=== PATIENT | male | born 1945 | race Caucasian/White ===

== ENCOUNTER 2018-12-04 14:11 | Inpatient (IN) | payer OTHER, MEDICARE ==
[~2018-12-04] VITALS: Ht 182.9 cm; Wt 104.7 kg
[2018-12-04 15:05] LABS: BASOPHILS ABSOLUTE AUTO 0.03 K/mm3 (0.00-0.23); BASOPHILS PERCENT AUTO 1 % (0-2); EOSINOPHILS ABSOLUTE AUTO 0.31 K/mm3 (0.00-0.68); EOSINOPHILS PERCENT AUTO 6 % (0-6); Hematocrit 39.3 % (37.0-53.0); Hemoglobin 12.3 g/dL (13.5-17.5); IMMATURE GRAN ABSOLUTE AUTO 0.01 K/mm3 (0.00-0.10); IMMATURE GRAN PERCENT AUTO 0 % (0-1); LYMPHOCYTES ABSOLUTE AUTO 1.15 K/mm3 (0.84-5.20); LYMPHOCYTES PERCENT AUTO 22 % (21-46); MONOCYTES ABSOLUTE AUTO 0.47 K/mm3 (0.16-1.47); MONOCYTES PERCENT AUTO 9 % (4-13); Mean Corpuscular HGB 27.7 pg (26.0-34.0); Mean Corpuscular HGB Conc 31.3 g/dL (31.5-36.5); Mean Corpuscular Volume 89 fL (80-100); Mean Platelet Volume 10.4 fL (9.1-12.4); NEUTROPHILS ABSOLUTE AUTO 3.33 K/mm3 (1.96-9.15); NEUTROPHILS PERCENT AUTO 63 % (41-73); Platelet Count 175 K/mm3 (150-400); RDW Coefficient Variation 16.4 % (11.7-14.2); Red Blood Cell Count 4.44 M/mm3 (4.30-5.90)
[2018-12-04] MEDS ORDERED: AMLO10 PO (15:07)
[2018-12-04] MEDS ORDERED: METO25 (15:07)
[2018-12-04] MEDS ORDERED: ALLO100 (15:08)
[2018-12-04] MEDS ORDERED: POTA8 PO (15:08)
[2018-12-04] MEDS ORDERED: Aspirin EC81 MG PO (15:08)
[2018-12-04] MEDS ORDERED: HYDCHL25 (15:09)
[2018-12-04] MEDS ORDERED: LOSA25 (15:09)
[2018-12-04] MEDS ORDERED: BISM300CH (15:09)
[2018-12-04 15:22] LABS: Alanine Aminotransfer (ALT/SGP 20 U/L (12-78); Albumin, Blood 3.3 g/dL (3.4-5.0); Albumin/Globulin Ratio 0.9 (0.8-1.8); Alk Phos 71 U/L (50-136); Anion Gap 7 mmol/L (6-16); Aspartate Aminotrans (AST/SGOT 14 U/L (12-37); Bilirubin, Total 0.3 mg/dL (0.1-1.0); Blood Urea Nitrogen 32 mg/dL (8-24); Bun/Creatinine Ratio 26.9 (12.0-20.0); CO2, Blood 29 mmol/L (21-32); Chloride, Blood 109 mmol/L (98-108); Creatinine, Blood 1.19 mg/dL (0.60-1.20); Globulin, Blood 3.6 g/dL (2.2-4.0); Glomerular Filtration Rate >60 (60-); Glucose, Blood 123 mg/dL (70-99); Sodium, Blood 145 mmol/L (136-145); Total Protein, Blood 6.9 g/dL (6.4-8.2); Troponin I 0.017 ng/mL (0.000-0.040)
[2018-12-04] MEDS ORDERED: HYDRA50 PO (18:17)
[2018-12-04] MEDS ORDERED: ATOR40TA PO (18:17)
[2018-12-04] MEDS ORDERED: Bumetanide1 MG PO (18:17)
[2018-12-04] MEDS ORDERED: NOVOLOG FL100 UNIT/1 SC (18:18)
[2018-12-04] MEDS ORDERED: BASAGLAR K100 UNIT/1 SC (18:19)
[2018-12-04] MEDS ORDERED: METO50ER PO (18:19)
[2018-12-04] MEDS ORDERED: LOSA50 PO (18:19)
[2018-12-04] MEDS ORDERED: POTCHL20ER PO (18:20)
--- NOTE | 2018-12-04 19:30 | NUR ---
PCU ADMIT / CARE ASSUMPTION PT PREVIOUSLY ADMITTED TO PCU, RM 06 FROM THE ER @ APPROX 1820. CARE ASSUMPTION @ APPROX 1930. PT A&O X4. VSS. MONITOR SHOWS AFLUTTER, HR 80'S. PT REPORTS HAVING MULT EPISODES OF NEAR SYNCOPE PRIOR TO ADMISSION, STATING "I NEVER BLACKED OUT." PT REPORTS "I CAN FEEL THAT MY HEART ISN'T BEATING NORMALLY." PT DENIES PAIN. DENIES SOB. STATES "I FEEL FINE." FAMILY AT BEDSIDE. PT INDEPENDENT, ENCOURAGED TO USE CALL LIGHT FOR SBA D/T HX NEAR SYNCOPE. PT AGREEABLE. WILL CONTINUE TO MONITOR AND PROVIDE CARE.
--- NOTE | 2018-12-04 23:00 | NUR ---
PAUSE & CONVERSION TO SB/NSR PT W/ A 3.75 SECOND PAUSE AND CONVERSION TO SB/NSR @ 0213
--- NOTE | 2018-12-05 02:00 | NUR ---
FURTHER PAUSES PT HAVING MULTIPLE PAUSES, ALL IN WHICH PT SLEEPING AT TIME OF PAUSES, WAKENS EASILY AND DENIES FURTHER ABNORMAL SYMPTOMS. PT W/ A 3.8 SECOND PAUSE @ 2359, A 5.7 SECOND PAUSE @ 0104, & A 4.6 SECOND PAUSE @ 0147. SEE CHART FOR PRINTED STRIPS. VSS. PT ALSO FLIPPING IN AND OUT OF AFIB AND SB, HR RANGING 45-110. CARDIOLOGY IS CONSULTED. PT IS NPO W/ POSSIBLE PACER PLACEMENT. WILL CONTINUE TO MONITOR AND PROVIDE CARE.
[2018-12-05 05:04] LABS: BASOPHILS ABSOLUTE AUTO 0.02 K/mm3 (0.00-0.23); BASOPHILS PERCENT AUTO 0 % (0-2); EOSINOPHILS ABSOLUTE AUTO 0.28 K/mm3 (0.00-0.68); EOSINOPHILS PERCENT AUTO 6 % (0-6); Hematocrit 37.4 % (37.0-53.0); Hemoglobin 11.8 g/dL (13.5-17.5); IMMATURE GRAN ABSOLUTE AUTO 0.01 K/mm3 (0.00-0.10); IMMATURE GRAN PERCENT AUTO 0 % (0-1); LYMPHOCYTES ABSOLUTE AUTO 0.96 K/mm3 (0.84-5.20); LYMPHOCYTES PERCENT AUTO 19 % (21-46); MONOCYTES ABSOLUTE AUTO 0.43 K/mm3 (0.16-1.47); MONOCYTES PERCENT AUTO 9 % (4-13); Mean Corpuscular HGB 27.7 pg (26.0-34.0); Mean Corpuscular HGB Conc 31.6 g/dL (31.5-36.5); Mean Corpuscular Volume 88 fL (80-100); Mean Platelet Volume 10.1 fL (9.1-12.4); NEUTROPHILS ABSOLUTE AUTO 3.36 K/mm3 (1.96-9.15); NEUTROPHILS PERCENT AUTO 66 % (41-73); Platelet Count 159 K/mm3 (150-400); RDW Coefficient Variation 16.3 % (11.7-14.2); RDW Standard Deviation 52.3 fL (35.1-46.3); Red Blood Cell Count 4.26 M/mm3 (4.30-5.90); White Blood Cell Count 5.06 K/mm3 (4.00-11.30)
[2018-12-05 05:36] LABS: Anion Gap 6 mmol/L (6-16); Blood Urea Nitrogen 27 mg/dL (8-24); Bun/Creatinine Ratio 23.7 (12.0-20.0); CHOL/HDL RATIO 3.8; CO2, Blood 30 mmol/L (21-32); Calcium, Blood 8.8 mg/dL (8.5-10.1); Chloride, Blood 108 mmol/L (98-108); Cholesterol 140 mg/dL (50-200); Creatinine, Blood 1.14 mg/dL (0.60-1.20); Glomerular Filtration Rate >60 (60-); Glucose, Blood 111 mg/dL (70-99); HDL Cholesterol 37 mg/dL (>39); LDL/HDL RATIO 1.8; Low Density Lipoprotein Chol 67 mg/dL (0-110); Potassium, Blood 3.9 mmol/L (3.5-5.5); Sodium, Blood 144 mmol/L (136-145); Triglycerides 182 mg/dL (30-160); Very Low Density Lipoprot Chol 36 mg/dL (6-32)
--- NOTE | 2018-12-05 06:08 | NUR ---
SHIFT SUMMARY PT A&O X4. VSS. MONITOR SHOWS EPISODES OF SB W/ 4 PAUSES TOTAL THIS SHIFT, SEE PREVIOUS NOTES AND PRINTED STRIPS IN CHART. PT ALSO HAVING EPISODES OF AFIB, AFLUTTER, AND NSR THIS SHIFT. HR RANGING 45-110. PT WEARING CPAP WHILE SLEEPING AND REPORTS RA DURING DAY. PT REQUIRING O2 BLEED IN UP TO 4L THIS SHIFT D/T DESAT 85% WHILE SLEEPING W/ CPAP ON @ RA. PT DENIES ANY EPISODES OF DIZZINESS THIS SHIFT. PT STATES "NO DIZZINESS, AT LEAST NOT YET." PT CONTINUES TO BE NPO, AWAITING PLAN FOR TODAY. WILL CONTINUE TO MONITOR AND PROVIDE CARE UNTIL REPORT OFF TO DAY SHIFT RN.
--- NOTE | 2018-12-05 07:25 | NUR ---
REPORT GIVEN TO DAY SHIFT RN. MONTESSORI LEAD TEACHER W/ REPORT OF PT BRADYING DOWN TO LOW 36 BPM @ 0720. UPON ASSESSMENT OF PT, PT ALERT, SITTING UP IN BED, & PT STATES "I FEEL FINE. I'M JUST AN OLD SLOW MAN." PT LAUGHING. DAY SHIFT RN AT PT BEDSIDE TAKING OVER CARE OF PT.
--- NOTE | 2018-12-05 08:15 | NUR ---
PCU DAYSHIFT ASSUMED CARE OF PT APPROX. 0700. PT A&O X4. VITAL SIGNS STABLE. ALTHOUGH BLOOD PRESSURE SLIGHTLY ELEVATED, DELI COOK MAKING MED CHANGES FOR THIS. WILL GIVE PER EMAR. ASSESSMENT COMPLETED. PT DENIES ANY IGHTHEADED OR DIZZINESS. PT HEART RHYTHM RANGGINGG FROM SINUS JORDAN IN 30'S-40'S TO, A FLUTTER IN 50'S AND THEN BACK TO A. FIB AVERAGING IN 70'S. DELI COOK AWARE AND WENT IN TO DISSCUS PLAN WITH PT THIS MORNING. PLAN IS FOR PT TO UNDERGO PAACEMAKER PLACEMENT. PT IN BED AT THIS TIME. CALL LIGHT IN REACH AND PT DENIES ANY NEEDS
--- NOTE | 2018-12-05 11:05 | NUR ---
ECHOCARDIOGRAM COMPLETED
--- NOTE | 2018-12-05 15:12 | NUR ---
NOTE HEART CENTER STAFF IN TO TAKE PT FOR PROCEDURE APPROX 1500. NO S/SX OF ACUTE DISTRESS
--- NOTE | 2018-12-05 19:31 | NUR ---
SHIFT SUMMARY PT ARRIVED BACK TO UNIT APPROX. 1800. PT A&O X4. VITAL SIGNS STABLE. PT HAS SURGICAL SITE ON UPPER LEFT CHEST WITH TEGADERM DRESSING IN PLACE. SITE REMAISN NON TENDER AND SOFT. NO S/SX OF BLEEDING, HEMATOMA OR SWELLING. A SMALL AMOUNT OF RED DRAINGAGE NOTED FROM TIME OF PLACEMENT OF DRESSING. HEART CENTER STAFF REPORTS THIS. PT DENEIS ANY PAIN OR N/V. PT REPROTS BEING HUNGRY. BED IN LOW POSTIION, CALL LGIHT IN REACH AND PT DENIES ANY NEEDS AT THIS TIME. WILL CONTINUE TO MONITOR UNTIL HANDOFF TO [facility] J[facility]
--- NOTE | 2018-12-05 19:44 | NUR ---
NOTE PT HAD A 8 BEAT RUN OF V. TACH UPON RETURN TO UNIT FROM PROCEDURE. APPROX. 0. BUT WITHOUT ANY SYMPTOMS. PT WAAS IN ROOM VISITING WITH FAMILY AT THE TIME. NOTIFIED CARDILOGIST OF THIS. NO NEW ORDERS AT THIS TIME.
[2018-12-06 04:20] LABS: BASOPHILS ABSOLUTE AUTO 0.02 K/mm3 (0.00-0.23); BASOPHILS PERCENT AUTO 0 % (0-2); EOSINOPHILS ABSOLUTE AUTO 0.21 K/mm3 (0.00-0.68); EOSINOPHILS PERCENT AUTO 4 % (0-6); Hematocrit 38.6 % (37.0-53.0); Hemoglobin 12.2 g/dL (13.5-17.5); IMMATURE GRAN PERCENT AUTO 0 % (0-1); LYMPHOCYTES ABSOLUTE AUTO 0.81 K/mm3 (0.84-5.20); LYMPHOCYTES PERCENT AUTO 16 % (21-46); MONOCYTES ABSOLUTE AUTO 0.52 K/mm3 (0.16-1.47); MONOCYTES PERCENT AUTO 11 % (4-13); Mean Corpuscular HGB 27.7 pg (26.0-34.0); Mean Corpuscular HGB Conc 31.6 g/dL (31.5-36.5); Mean Corpuscular Volume 88 fL (80-100); Mean Platelet Volume 9.8 fL (9.1-12.4); NEUTROPHILS ABSOLUTE AUTO 3.39 K/mm3 (1.96-9.15); NEUTROPHILS PERCENT AUTO 69 % (41-73); Platelet Count 157 K/mm3 (150-400); RDW Coefficient Variation 15.9 % (11.7-14.2); RDW Standard Deviation 51.6 fL (35.1-46.3); White Blood Cell Count 4.95 K/mm3 (4.00-11.30)
[2018-12-06 04:36] LABS: Anion Gap 6 mmol/L (6-16); Blood Urea Nitrogen 30 mg/dL (8-24); Bun/Creatinine Ratio 26.1 (12.0-20.0); CO2, Blood 32 mmol/L (21-32); Calcium, Blood 8.9 mg/dL (8.5-10.1); Chloride, Blood 105 mmol/L (98-108); Creatinine, Blood 1.15 mg/dL (0.60-1.20); Glomerular Filtration Rate >60 (60-); Glucose, Blood 145 mg/dL (70-99); Sodium, Blood 143 mmol/L (136-145)
--- NOTE | 2018-12-06 05:38 | NUR ---
SHIFT SUMMARY PT A&O X4. BP ELEVATED, MEDICATED W/ PRN HYDRALAZINE PER EMAR X1 THIS SHIFT. OTHERWISE VSS. SMALL BLEED NOTED TO PACER IMPLANTATION SITE, OTHERWISE SITE WNL. DRESSING INTACT. MONITOR SHOWS ATRIAL PACING, HR 60'S W/ EPISODES OF AFLUTTER. PT LUNG SOUNDS CLEAR. SPO2 > 92% ON RA. PT WEARING CPAP WHILE SLEEPING. WILL CONTINUE TO MONITOR AND PROVIDE CARE UNTIL REPORT OFF TO DAY SHIFT RN.
--- NOTE | 2018-12-06 09:04 | NUR ---
PCU DAYSHIFT ASSUMED CARE OF PT APPROX. 0700. PT A&OX4. ASSESSMENT COMPLETED. VITAL SIGNS STABLE. PT HEART RHTYHM PACED IN 60'S THIS MORNING. PT HAS PACEMAKER INCERSION SITE ON UPPER LEFT CHEST. PACEMAKER PLACED 12/05/18. TEGADERM DRESING IN PLACE AND INTACT. SMALL AMOUNT OF DRAINAGE NOTED FROM YESTERDAY AFTER PROCEDURE. INSERT CUTTER IN TO SEE THIS THIS MORNING AND REPORTS NO CONCERNS OF THIS. PT TO DISCHARGE TODAY. PT DENIES ANY PAIN THIS MORNING. BED IN LOW POSITION, CALL LIGHT IN REACH AND PT DENIES ANY NEEDS.
--- NOTE | 2018-12-06 10:37 | NUR ---
NOTE NOTIFIED PT THAT DISCHARGE ORDERS RECIEVED
[2018-12-06] MEDS ORDERED: ACET325 PO (11:29)
--- NOTE | 2018-12-06 13:04 | NUR ---
DISCHARGE DISCHARGE ORDERS RECIEVED. DISCHARGE PROCESS COMEPLTED. [facility]FORMATION [facility] TO [facility] AND MEDICAITONS FAXED OVER. REVIEWED DISCHARGE INSTRUCTIONS WITH PT AND FMAILY MEMEBER. ANSWERED ALL QUIESTIONS. PROVIDED WRITTEN EDUCATION ON POST PACEMAKER AFTER CARE. PT TO BE ESCORTED BY PEER STAFF MEMBER VIA WHEELCHAIR TO AUTOMOBILE. WILL CONTINUE TO MONITOR UNTIL DEPARTING UNIT
== END 2018-12-06 13:11 | disposition home or self-care (01) | DRG 243 ==
LOC: ER 14:11 → PCU 14:12
PROVIDERS: Emergency Medicine; Internal Medicine Cardiovascular Disease; ADMIT Internal Medicine
PROC: 0JH606Z Insertion of Pacemaker, Dual Chamber into Chest Subcutaneous Tissue and Fascia, Open Approach (ICD-10-PCS; principal; 2018-12-05)
PROC: 02HK3JZ Insertion of Pacemaker Lead into Right Ventricle, Percutaneous Approach (ICD-10-PCS; 2018-12-05)
PROC: 02H63JZ Insertion of Pacemaker Lead into Right Atrium, Percutaneous Approach (ICD-10-PCS; 2018-12-05)
PROC: B51N1ZZ Fluoroscopy of Left Upper Extremity Veins using Low Osmolar Contrast (ICD-10-PCS; 2018-12-05)
DX: I49.5 Sick sinus syndrome (principal); I48.92 Unspecified atrial flutter; Z79.82 Long term (current) use of aspirin; I10 Essential (primary) hypertension; I48.91 Unspecified atrial fibrillation; Z95.5 Presence of coronary angioplasty implant and graft; I25.10 Atherosclerotic heart disease of native coronary artery without angina pectoris; M10.9 Gout, unspecified; Z87.891 Personal history of nicotine dependence; I16.0 Hypertensive urgency; E11.51 Type 2 diabetes mellitus with diabetic peripheral angiopathy without gangrene; E78.5 Hyperlipidemia, unspecified; G47.33 Obstructive sleep apnea (adult) (pediatric); E66.9 Obesity, unspecified; Z68.29 Body mass index [BMI] 29.0-29.9, adult; Z79.4 Long term (current) use of insulin; I65.21 Occlusion and stenosis of right carotid artery; I48.0 Paroxysmal atrial fibrillation
CPT/HCPCS: 33208; 36415; 70450; 71045; 71046; 80048; 80053; 80061; 82947; 83880; 84443; 84484; 85025; 93005; 93010; 93306; 93880; 94660; 94762; 96374; 96375; 99152; 99153; 99285-25; C1785; C1898; G0378; J0153; J0360; J0690; J1644; J1940; J2250; J3010; J7030; J7040; Q9967

== ENCOUNTER 2019-06-22 11:49 | Inpatient (IN) | payer OTHER ==
[~2019-06-22] VITALS: Ht 182.9 cm; Wt 110.5 kg
[~2019-06-22 11:49] MED LIST: ACET325 PO; ALLO100; BISM300CH; HYDCHL25; HYDRA50 PO; LOSA25; METO25; POTA8 PO; POTCHL20ER PO
[2019-06-22 12:16] LABS: BASOPHILS ABSOLUTE AUTO 0.05 K/mm3 (0.00-0.23); BASOPHILS PERCENT AUTO 1 % (0-2); EOSINOPHILS ABSOLUTE AUTO 0.27 K/mm3 (0.00-0.68); EOSINOPHILS PERCENT AUTO 3 % (0-6); Hematocrit 42.4 % (37.0-53.0); Hemoglobin 13.4 g/dL (13.5-17.5); IMMATURE GRAN ABSOLUTE AUTO 0.02 K/mm3 (0.00-0.10); IMMATURE GRAN PERCENT AUTO 0 % (0-1); LYMPHOCYTES ABSOLUTE AUTO 1.11 K/mm3 (0.84-5.20); LYMPHOCYTES PERCENT AUTO 14 % (21-46); MONOCYTES ABSOLUTE AUTO 0.61 K/mm3 (0.16-1.47); MONOCYTES PERCENT AUTO 8 % (4-13); Mean Corpuscular HGB 28.6 pg (26.0-34.0); Mean Corpuscular HGB Conc 31.6 g/dL (31.5-36.5); Mean Corpuscular Volume 90 fL (80-100); Mean Platelet Volume 10.7 fL (9.1-12.4); NEUTROPHILS ABSOLUTE AUTO 5.93 K/mm3 (1.96-9.15); NEUTROPHILS PERCENT AUTO 74 % (41-73); Platelet Count 234 K/mm3 (150-400); RDW Coefficient Variation 15.7 % (11.7-14.2); RDW Standard Deviation 51.3 fL (35.1-46.3); Red Blood Cell Count 4.69 M/mm3 (4.30-5.90); White Blood Cell Count 7.99 K/mm3 (4.00-11.30)
[2019-06-22 12:41] LABS: Alanine Aminotransfer (ALT/SGP 41 U/L (12-78); Albumin, Blood 3.9 g/dL (3.4-5.0); Albumin/Globulin Ratio 1.1 (0.8-1.8); Alk Phos 103 U/L (50-136); Anion Gap 6 mmol/L (6-16); Aspartate Aminotrans (AST/SGOT 28 U/L (12-37); Bilirubin, Total 0.7 mg/dL (0.1-1.0); Blood Urea Nitrogen 33 mg/dL (8-24); Bun/Creatinine Ratio 18.9 (12.0-20.0); CO2, Blood 29 mmol/L (21-32); Calcium, Blood 9.3 mg/dL (8.5-10.1); Chloride, Blood 106 mmol/L (98-108); Creatinine, Blood 1.75 mg/dL (0.60-1.20); Globulin, Blood 3.6 g/dL (2.2-4.0); Glomerular Filtration Rate 41 (60-); Glucose, Blood 96 mg/dL (70-99); Potassium, Blood 3.8 mmol/L (3.5-5.5); Sodium, Blood 141 mmol/L (136-145); Total Protein, Blood 7.5 g/dL (6.4-8.2); Troponin I <0.015 ng/mL (0.000-0.040)
[2019-06-22] MEDS ORDERED: AMLO10 PO (15:45)
[2019-06-22] MEDS ORDERED: NOVOLOG FL100 UNIT/1 SC (15:46)
[2019-06-22] MEDS ORDERED: ATOR40TA PO (15:46)
[2019-06-22] MEDS ORDERED: Bumetanide1 MG PO (15:46)
[2019-06-22] MEDS ORDERED: BASAGLAR K100 UNIT/1 SC (15:46)
[2019-06-22] MEDS ORDERED: Aspirin EC81 MG PO (15:46)
[2019-06-22] MEDS ORDERED: LOSARTAN POTAS100 M1 PO (15:47)
[2019-06-22] MEDS ORDERED: METO50ER PO (15:47)
[2019-06-22] MEDS ORDERED: Bumetanide2 MG PO (15:47)
[2019-06-22] MEDS ORDERED: ELIQUIS5 MG PO (15:48)
[2019-06-22] MEDS ORDERED: HYDRA25 PO (15:48)
[2019-06-22] MEDS ORDERED: COLCHICINE0.6 MG PO (15:49)
[2019-06-22] MEDS ORDERED: ALLO300 PO (15:50)
--- NOTE | 2019-06-22 18:23 | NUR ---
SHIFT SUMMARYL. 1655 PT ADMITTED TO MEDICAL FLOOR VIA GURNEY, SELF TRANSFERED TO BED WITHOUT ISSUE. PT REPORTS MILD SOB, ON 2L O2 NC, RA AT BASELINE WITH CPAP AT HS. LUNGS CLEAR, DIM IN BASES. HEART TONES DISTANT, PT DENIES CP. PT REPORTS CONSTIPATION, LAST BM 06/21/19 ALTHOUGH SMALL. ABD FIRM, HYPOACTIVE BT. FRIEND AT BEDSIDE AT TIME OF ADMIT.
--- NOTE | 2019-06-22 23:15 | NUR ---
PATIENT REQUEST ADDITIONAL BOWL MEDICATION AND MIRALAX GIVEN PER EMAR. SCHEDULE COLACE 200 MG GIVEN PER EMAR.
--- NOTE | 2019-06-23 01:15 | NUR ---
PATIENT REFUSED CPAP PER RT FOR THIS EVENING. RT PLACED REFUSAL FORM IN CHART.
--- NOTE | 2019-06-23 02:17 | NUR ---
PATIENT SITTING ON SIDE OF BED FOR EASE OF BREATHING. RECLINER SUGGESTED AND PATIENT AGREED TO SLEEP IN RECLINER REPORTING HE BREATHS BETTER WITH FEET ON GROUND VS IN BED. CALL LIGHT IN REACH.
--- NOTE | 2019-06-23 03:41 | NUR ---
SHIFT SUMMARY PATIENT HAD NO ACUTE CHANGES. AXOX 4 AND SBA TO BR. PIV REMAINS INTACT. CBG 194. SUPERVISOR TYPE DISK QUALITY CONTROL REPORTS PACED 112. VSS/AFEBRILE. DENIES PAIN AND N/V. SOB W/EXERTION. ASKED FOR ADDITIONAL BOWEL CARE BESIDES SCHEDULE COLACE 200 MG FOR CONSTIPATION. MIRALAX GIVEN PER EMAR. FRIENDS PRESENT FOR A FEW HOURS IN ROOM. PATIENT SITTING ON SIDE OF BED FOR EASE OF BREATHING. RECLINER RECOMMENDED AND PATIENT ACCEPTED. REPORTING WHEN HIS FEET ARE ON THE GROUND SITTING, IT IS EASIER TO BREATH. CALL LIGHT IN REACH. BED IN LOWEST POSITION. WILL CONTINUE TO MONITOR UNTIL DAY SHIFT NURSE ASSUMES CARE.
[2019-06-23 05:18] LABS: Bun/Creatinine Ratio 17.7 (12.0-20.0); Calcium, Blood 8.7 mg/dL (8.5-10.1); Creatinine, Blood 1.86 mg/dL (0.60-1.20); Potassium, Blood 4.2 mmol/L (3.5-5.5)
--- NOTE | 2019-06-23 11:24 | NUR ---
Echocardiogram using 0.50ml of Definity contrast performed.
--- NOTE | 2019-06-23 14:54 | NUR ---
Patient gave student nurse permission to provide care on 06/24/19.
--- NOTE | 2019-06-23 19:26 | NUR ---
SHIFT SUMMARY. A&OX4, SBA TO BATHROOM SECONDARY TO O2 TUBING, PT CALLS APPROPRIATELY, NO SAFETY CONCERNS. PT DENIES PAIN, N/V. PT REPORTS MILD SOB WITH EXERTION. CONTINUES WITH 2L O2 NC, LUNG SOUNDS DIM AND TIGHT. ECHO COMPLETED TO TODAY. NO NEW CHANGES OR CONCERNS.
[2019-06-24 04:30] LABS: BASOPHILS ABSOLUTE AUTO 0.04 K/mm3 (0.00-0.23); BASOPHILS PERCENT AUTO 1 % (0-2); EOSINOPHILS PERCENT AUTO 5 % (0-6); Hematocrit 37.6 % (37.0-53.0); Hemoglobin 11.7 g/dL (13.5-17.5); IMMATURE GRAN ABSOLUTE AUTO 0.01 K/mm3 (0.00-0.10); IMMATURE GRAN PERCENT AUTO 0 % (0-1); LYMPHOCYTES ABSOLUTE AUTO 0.99 K/mm3 (0.84-5.20); LYMPHOCYTES PERCENT AUTO 15 % (21-46); MONOCYTES ABSOLUTE AUTO 0.61 K/mm3 (0.16-1.47); MONOCYTES PERCENT AUTO 9 % (4-13); Mean Corpuscular HGB 28.3 pg (26.0-34.0); Mean Corpuscular HGB Conc 31.1 g/dL (31.5-36.5); Mean Corpuscular Volume 91 fL (80-100); Mean Platelet Volume 10.3 fL (9.1-12.4); NEUTROPHILS PERCENT AUTO 71 % (41-73); Platelet Count 191 K/mm3 (150-400); RDW Coefficient Variation 15.6 % (11.7-14.2); RDW Standard Deviation 52.2 fL (35.1-46.3); Red Blood Cell Count 4.14 M/mm3 (4.30-5.90); White Blood Cell Count 6.65 K/mm3 (4.00-11.30)
[2019-06-24 04:58] LABS: Bun/Creatinine Ratio 19.8 (12.0-20.0); Calcium, Blood 8.7 mg/dL (8.5-10.1); Creatinine, Blood 2.02 mg/dL (0.60-1.20); Potassium, Blood 4.3 mmol/L (3.5-5.5)
--- NOTE | 2019-06-24 06:16 | NUR ---
SHIFT SUMMARY AOX4. HR SLIGHTLY TACHY @115, RUNNING PACED ON TELE. REST OF VS ARE STABLE. DENIES PAIN OR N/V. REPORTS HE FEELS BREATHING IS BETTER BUT STILL GETS SOB. ON 2L O2 W/SPO2 >90%, LUNGS SOUND DIM T/O. PT DID NOT WANT TO WEAR CPAP LAST NIGHT, RT BROUGHT CPAP & PT STATED HE WAS OKAY ON SUPPLEMENTAL O2. CALL LIGHT IN REACH.
--- NOTE | 2019-06-24 19:19 | NUR ---
SHIFT SUMMARY PATIENT DENIES PAIN, NAUSEA, AND SHORTNESS OF BREATH. PATIENT REPORTS FEELING "BACKED UP" THIS EVENING. NOC SHIFT INFORMED PATIENT WOULD LIKE PRN BOWEL CARE. PATIENT UP INDEPENDENT IN ROOM. CALL LIGHT IN REACH.
--- NOTE | 2019-06-25 04:54 | NUR ---
SHIFT SUMMARY PT CONTINUES TO FEEL CONSTIPATED. DESCRIBING IT LIKE HE IS "FULL UP" AND "BLOCKED". ABD IS DISTENDED AND FIRM. PT REPORTS THAT THIS IS NOT NORMAL FOR HIM. MIRALAX AND SCHEDULED STOOL SOFTENERS GIVEN. NO RESULTS SO FAR THIS EVENING. PT ALSO CONTINUING TO COMPLAIN OF SOB. STATING THAT MUCH OF THE TIME HE FEELS LIKE HE CAN'T GET A PROPER BREATH IN. LUNG SOUNDS DO SOUND VERY DIMINISHED. PT REMAINS ON 2 L O2 NC WITH O2 SATS IN THE MID 90'S. PT ALSO COMPLAINING OF A HEADACHE THIS EVENING AND SOME "RINGING" IN HIS EARS. PT REPORTS THAT THIS SYMPTOM ALWAYS HAPPENS TO HIM WHEN HE GETS "BLOCKED UP". TYLENOL GIVEN WITH GOOD RELIEF. PT TOOK A WHILE TO FALL ASLEEP BUT ONCE ASLEEP PT APPEARED TO SLEEP WELL FOR APPROX 5 HOURS. PT SLEPT SITTING STRAIGHT UP IN BED, REPORTING THAT HE DOESN'T FEEL LIKE HE CAN BREATH IF HOB ANY LESS ELEVATED. VITAL SIGNS HAVE REMAINED STABLE. TELEMETRY SHOWING VENTRICULAR PACED AT 115. WILL CONTINUE TO MONITOR AND REPORT TO DAY RN.
[2019-06-25 04:57] LABS: BASOPHILS ABSOLUTE AUTO 0.05 K/mm3 (0.00-0.23); BASOPHILS PERCENT AUTO 1 % (0-2); EOSINOPHILS ABSOLUTE AUTO 0.38 K/mm3 (0.00-0.68); EOSINOPHILS PERCENT AUTO 6 % (0-6); Hematocrit 36.6 % (37.0-53.0); Hemoglobin 11.5 g/dL (13.5-17.5); IMMATURE GRAN ABSOLUTE AUTO 0.01 K/mm3 (0.00-0.10); IMMATURE GRAN PERCENT AUTO 0 % (0-1); LYMPHOCYTES ABSOLUTE AUTO 1.15 K/mm3 (0.84-5.20); LYMPHOCYTES PERCENT AUTO 17 % (21-46); MONOCYTES PERCENT AUTO 9 % (4-13); Mean Corpuscular HGB 28.3 pg (26.0-34.0); Mean Corpuscular HGB Conc 31.4 g/dL (31.5-36.5); Mean Corpuscular Volume 90 fL (80-100); Mean Platelet Volume 10.1 fL (9.1-12.4); NEUTROPHILS ABSOLUTE AUTO 4.47 K/mm3 (1.96-9.15); NEUTROPHILS PERCENT AUTO 67 % (41-73); Platelet Count 188 K/mm3 (150-400); RDW Coefficient Variation 15.4 % (11.7-14.2); RDW Standard Deviation 51.3 fL (35.1-46.3); Red Blood Cell Count 4.06 M/mm3 (4.30-5.90); White Blood Cell Count 6.66 K/mm3 (4.00-11.30)
[2019-06-25 08:35] LABS: Bun/Creatinine Ratio 24.1 (12.0-20.0); Calcium, Blood 8.8 mg/dL (8.5-10.1); Creatinine, Blood 1.91 mg/dL (0.60-1.20); Potassium, Blood 4.3 mmol/L (3.5-5.5)
--- NOTE | 2019-06-25 18:29 | NUR ---
SHIFT SUMMARY PATIENT DENIES PAIN, NAUSEA, AND SHORTNESS OF BREATH. NEW BOWEL CARE ORDERS GIVEN, PATIENT HAD TWO BM'S THODAY AND REPORTS HE FEELS LESS BLOCKED UP. PATIENT INDEPENDENT IN ROOM AND WALKED BRIEFLY IN HALLWAY. PATIENT IN BETTER SPIRITS THIS AFTERNOON. CPAP ORDERED FOR NOC.
--- NOTE | 2019-06-25 20:11 | NUR ---
PT AAOX4, PLESANT AND COOPERATIVE. LUNGS DIM THROUGHOUT. APPEARS IN NO ACUTE DISTRESS. SPEAKS IN FULL SENTENCES.
[2019-06-26 05:35] LABS: Bun/Creatinine Ratio 25.6 (12.0-20.0); Calcium, Blood 8.9 mg/dL (8.5-10.1); Creatinine, Blood 1.8 mg/dL (0.60-1.20); Potassium, Blood 4.1 mmol/L (3.5-5.5)
--- NOTE | 2019-06-26 06:45 | NUR ---
SHIFT SUMMARY PT IS PLEASANT AND COOPERATIVE WITH CARE. AAOX4. VSS. HAS SLEPT ON AND OFF THROUGH THE NIGHT. ON MORNING LABS IT WAS NOTED THAT PT HAD A BLOOD SUGAR OF 63. GAVE APPLES AND PEANUT BUTTER. LUNGS HAVE BEEN DIMINISHED. NO ACUTE CHANGES NOTED THIS NIGHT. PT PRESENTLY SITTING UP AND EATING. WILL CONTINUE TO MONITOR.
--- NOTE | 2019-06-26 15:54 | NUR ---
PT TO [facility] FOR PROCEDURE. TRANSPORTED VIA W/C BY RN.
--- NOTE | 2019-06-26 17:55 | NUR ---
ERNST BRUNER PT A&O, PT HAD CARDIOVERSION AND RETURNED TO FLOOR @ 1720 THIS SHIFT, PT TOLORATED PROCEDURE WELL AND HIS CUURENTLY ON 3L OF N/C, PT IS IN SINUS RYTHM WITH A RATE IN THE 70'S AND PACED 100% PER MONITOR SAIDA PT TERE ANY PAIN OR NAUSEA AND IS REQUESTING A DINNER TRAY. PT HAS CALL LIGHT IN REACH AND WILL COUNTINUE TO MONITOR AND REPORT TO ONCOMING SHIFT.
--- NOTE | 2019-06-27 01:02 | NUR ---
CHECKED ON PT. HE STATED HE WAS FEELING MORE SOB AND WAS SITTING UP TRIPODING. BUMPED O2 FROM 3L TO 4L AND OBTAINED VS AT 2353 THEY WERE STABLE AND O2 WAS 94%. PLACED PT ON CPAP HE STATED NO IMPROVEMENT. CALLED TO HOSPITALIST VINITA. EXPLAINED SITUATION. RECIEVED ORDERS FOR 2MG BUMEX IV NOW AND PLACE PT ON BIPAP. DONE. PT STATES FEELING MUCH BETTER AND LESS SOB ON BIPAP. NO LONGER TRIPODING. HAS NOW LAID BACK DOWN AND STATES HE THINKS HE CAN SLEEP.
--- NOTE | 2019-06-27 08:05 | NUR ---
SHIFT SUMMARY SEE PREVIOUS NOTE. AFTER IV BUMES AND BIPAPP PT STATED HE FELT MUCH BETTER AND WAS ABLE TO BREATHE WITHOUT DIFFICULTY. WAS ABLE TO SLEEP AFTER THAT AND HAS VOICED FEELING FINE ON SUBSEQUENT ROUNDING. THIS MORNING DURING REPORT HE HAD REMOVED BIPAP AND WAS SITTING UP AT THE BEDSIDE WITH NO OXYGEN ON STATING HE FELT MUCH BETTER. VSS. REPORT TO ONCOMING RN.
[2019-06-27 08:31] LABS: Bun/Creatinine Ratio 27.8 (12.0-20.0); Calcium, Blood 9.3 mg/dL (8.5-10.1); Creatinine, Blood 1.94 mg/dL (0.60-1.20); Magnesium, Blood 2.4 mg/dL (1.6-2.4); Potassium, Blood 4.4 mmol/L (3.5-5.5)
--- NOTE | 2019-06-27 18:21 | NUR ---
SHIFT SUMMARY PT A/O X 4. MAKES NEEDS KNOWN. DOSE CHANGES MADE TO DIURETICS TO REMOVE FLUIDS R/T HF. LUNG SOUNDS IMPROVING BY WAY OF REDUCED CRACKLE AUSCULTATION. FAMILY AT BEDSIDE VISITING. PT AMBULATES WITH BATHROOM PRIVELEDGES. BIPAP WITHIN ROOM TO ASSIST PT SLEEPING/BREATHING. EDEMATOUS LOWER EXTREMITIES. LN TO CONTINUE TO MONITOR.
--- NOTE | 2019-06-28 06:29 | NUR ---
ALERT AND ORIENTED. C PAP IN USE ALL NOCT, APPEARED TO RST QUIETLY WITH FEW INTERRUPTIONS, UP ONCE TO BATHROOM, EVEN THOUGH WAS ENCOURAGED TO USE CALL LIGHT PRIOR TO GETTING OUT OF BED. FLUID RESTRICTION MAINTAINED - SEE DOC FLOW SHEETS FOR DETAILS OF INTAKE. CALL LIGHT IN REACH.
--- NOTE | 2019-06-28 07:45 | NUR ---
PT. SITTING ON EDGE OF BED. REPORTS COUGHING UP SPUTUM THAT IS BLOODY, GAVE PT. A SPECIMEN CUP AND TOLD HIM TO CALL ME WHEN HE HAD A SPECIMEN. PT. REPORTED BEING SOB, CALLED FOR BREATHING TREATMENT BUT THERE WEREN'T ANY ORDERED HIS SOB WAS RELATED TO HIS HEART. WILL NOTIFY DR. VALENCIA ONCE WE GET A SAMPLE OF HIS SPUTUM.
[2019-06-28 09:01] LABS: BASOPHILS ABSOLUTE AUTO 0.05 K/mm3 (0.00-0.23); BASOPHILS PERCENT AUTO 1 % (0-2); EOSINOPHILS ABSOLUTE AUTO 0.29 K/mm3 (0.00-0.68); EOSINOPHILS PERCENT AUTO 5 % (0-6); Hematocrit 40.6 % (37.0-53.0); Hemoglobin 12.6 g/dL (13.5-17.5); IMMATURE GRAN ABSOLUTE AUTO 0.01 K/mm3 (0.00-0.10); IMMATURE GRAN PERCENT AUTO 0 % (0-1); LYMPHOCYTES ABSOLUTE AUTO 0.93 K/mm3 (0.84-5.20); LYMPHOCYTES PERCENT AUTO 15 % (21-46); MONOCYTES ABSOLUTE AUTO 0.58 K/mm3 (0.16-1.47); MONOCYTES PERCENT AUTO 9 % (4-13); Mean Corpuscular HGB 28.1 pg (26.0-34.0); Mean Corpuscular Volume 91 fL (80-100); Mean Platelet Volume 10.9 fL (9.1-12.4); NEUTROPHILS ABSOLUTE AUTO 4.48 K/mm3 (1.96-9.15); NEUTROPHILS PERCENT AUTO 71 % (41-73); Platelet Count 188 K/mm3 (150-400); RDW Coefficient Variation 15.1 % (11.7-14.2); Red Blood Cell Count 4.48 M/mm3 (4.30-5.90); White Blood Cell Count 6.34 K/mm3 (4.00-11.30)
[2019-06-28 10:39] LABS: Albumin, Blood 3.4 g/dL (3.4-5.0); Anion Gap 3 mmol/L (6-16); Blood Urea Nitrogen 53 mg/dL (8-24); Bun/Creatinine Ratio 29.1 (12.0-20.0); CO2, Blood 33 mmol/L (21-32); Calcium, Blood 9.4 mg/dL (8.5-10.1); Chloride, Blood 104 mmol/L (98-108); Creatinine, Blood 1.82 mg/dL (0.60-1.20); Glomerular Filtration Rate 39 (60-); Glucose, Blood 80 mg/dL (70-99); Phosphorus, Blood 3.9 mg/dL (2.5-4.9); Potassium, Blood 3.6 mmol/L (3.5-5.5); Sodium, Blood 140 mmol/L (136-145)
[2019-06-28 11:06] LABS: Magnesium, Blood 2.3 mg/dL (1.6-2.4)
--- NOTE | 2019-06-28 18:56 | NUR ---
PT. SITTING ON EDGE OF BED, SPOUSE AT BEDSIDE. PT. REPORTS BREATHING IS MUCH BETTER AFTER CT SHOWED A RIGHT-SIDED PNEUMONIA AND SMALL BILATERAL EFFUSIONS. PT. ALSO WEARING 4L/NC WHEN NOT ON CPAP OXYGEN LEVEL WAS IN THE 80'S. PT. ALSO MORE COMPLIANT WITH CPAP.
--- NOTE | 2019-06-29 03:41 | NUR ---
PT REMAINS ON CPAP AT NIGHT AND HOB ELEVATED FOR EASIER BREATHING. ALERT AND ORIENTED X 4. HAS BEEN RESTING QUIETLY WITH FEW INTERRUPTIONS. WAS UP TO BATHROOM , ENCOURAGED TO DO SO WITH STAFF SUPERVISION PER SAFETY. CALL LIGHT IN REACH.
[2019-06-29 05:01] LABS: BASOPHILS ABSOLUTE AUTO 0.03 K/mm3 (0.00-0.23); BASOPHILS PERCENT AUTO 1 % (0-2); EOSINOPHILS PERCENT AUTO 5 % (0-6); Hematocrit 37.5 % (37.0-53.0); Hemoglobin 11.8 g/dL (13.5-17.5); IMMATURE GRAN ABSOLUTE AUTO 0.02 K/mm3 (0.00-0.10); IMMATURE GRAN PERCENT AUTO 0 % (0-1); LYMPHOCYTES ABSOLUTE AUTO 0.72 K/mm3 (0.84-5.20); LYMPHOCYTES PERCENT AUTO 13 % (21-46); MONOCYTES ABSOLUTE AUTO 0.53 K/mm3 (0.16-1.47); MONOCYTES PERCENT AUTO 9 % (4-13); Mean Corpuscular HGB 28.4 pg (26.0-34.0); Mean Corpuscular HGB Conc 31.5 g/dL (31.5-36.5); Mean Corpuscular Volume 90 fL (80-100); Mean Platelet Volume 11.2 fL (9.1-12.4); NEUTROPHILS ABSOLUTE AUTO 4.13 K/mm3 (1.96-9.15); NEUTROPHILS PERCENT AUTO 72 % (41-73); Platelet Count 159 K/mm3 (150-400); RDW Coefficient Variation 15.2 % (11.7-14.2); RDW Standard Deviation 50.4 fL (35.1-46.3); Red Blood Cell Count 4.16 M/mm3 (4.30-5.90); White Blood Cell Count 5.73 K/mm3 (4.00-11.30)
[2019-06-29 05:32] LABS: Bun/Creatinine Ratio 30.2 (12.0-20.0); Calcium, Blood 8.8 mg/dL (8.5-10.1); Creatinine, Blood 1.49 mg/dL (0.60-1.20); Potassium, Blood 3.5 mmol/L (3.5-5.5)
--- NOTE | 2019-06-29 16:56 | NUR ---
HE HAS DENIED ANY PAIN TODAY AND AMBULATES WITH SBA IN THE ROOM. HE EATS WELL AND IS DIURISING WELL. HIS EDEMA IS MORE PRONOUNCED IN THE RT LEG THAN THE LEFT. HE IS DISAPPOINTED THAT HIS PULSE RATE IS STILL OVER 100. WE ARE WEANING HIS O2. NO COMPLAINTS.
--- NOTE | 2019-06-29 21:02 | NUR ---
2042 PT SITTING UP IN BED, AND VISITOR IN ROOM. PT REPORTS SOB THAT INCREASES WITH EXERTION, ON 1L O2 NC AT 90%. PRODUCTIVE COUGH, THICK DARK RED PER PT. EDEMA IN LE'S 2+. N/T IN FEET, NOT NEW. REPORTS PAIN IN CHEST OF 2-3/10 THAT MCKEON AND ACHES R/T COUGH, DOES NOT WANT ANYTHING FOR IT AT THIS TIME. HR IS 125, PT GOT HIS SCHEDULED TOPROL. NO OTHER APPARENT SIGNS OF DISTRESS. CALL LIGHT IS IN REACH.
--- NOTE | 2019-06-30 03:16 | NUR ---
PT REQUESTED AND RECIEVED SOME TEA. DENIES NEED FOR ANYTHING ELSE AT THIS TIME. NO APPARENT SIGNS OF DISTRESS. PT IS NOW LYING IN BED, WATCHING TV. CALL LIGHT IS IN REACH.
--- NOTE | 2019-06-30 03:17 | NUR ---
0000 PT LYING IN BED, EYES CLOSED, APPEARS TO BE RESTING. BREATHING IS EVEN, UNLABORED. NO APPARENT SIGNS OF DISTRESS. CALL LIGHT IS IN REACH.
--- NOTE | 2019-06-30 03:17 | NUR ---
06/29/19 2200 PT LYING IN BED, AWAKE, WATCHING TV. NO APPARENT SIGNS OF DISTRESS. CALL LIGHT IS IN REACH.
--- NOTE | 2019-06-30 03:18 | NUR ---
0200 PT LYING IN BED, EYES CLOSED, WAKES EASILY TO VERBAL STIMULI. NO APPARENT SIGNS OF DISTRESS. CALL LIGHT IS IN REACH.
--- NOTE | 2019-06-30 03:29 | NUR ---
PT IS AAO X 4, NOW ON RA, WAS ON 1L. IS AT 93% ON RA. REPORTS SOB THAT INCREASES WITH EXERTION. PRODUCTIVE COUGH, REPORTS DARK RED THICK SPUTUM. SORENESS IN CHEST R/T COUGH, DID NOT WANT ANYTHING FOR IT. EDEMA IN LE'S 2+. NEUROPATHY IN FEET. BS AT HS WAS 173. PT HAS A BIPAP ORDERED, HE DID NOT WEAR IT LAST NOC, SAYS HE WEARS A CPAP AT HOME. THERE IS NO CONTINUOUS OXIMETRY IN THE ROOM THE PT SIGNED A REFUSAL TO WEAR FORM.
[2019-06-30 05:07] LABS: Hematocrit 38.8 % (37.0-53.0)
[2019-06-30 05:28] LABS: Bun/Creatinine Ratio 26.5 (12.0-20.0); Calcium, Blood 8.8 mg/dL (8.5-10.1); Creatinine, Blood 1.47 mg/dL (0.60-1.20); Potassium, Blood 3.6 mmol/L (3.5-5.5)
--- NOTE | 2019-06-30 05:36 | NUR ---
PT SITTING UP ON EDGE OF BED, NO NEW CHANGES. NO APPARENT SIGNS OF DISTRESS. DENIES NEED FOR ANYTHING AT THIS TIME. CALL LIGHT IS IN REACH. NO OTHER CHANGES THIS SHIFT.
--- NOTE | 2019-06-30 17:56 | NUR ---
PATIENT IS ALERT AND ORIENTED AND COOPERATIVE WITH CARE. HIS IS AT THE BEDSIDE. TELE IS IN PLACE, PACED AT 70 BPM. PATIENT IS WEARING 1L O2 VIA NC WITH O2 SATS AT 91%. PATIENT TOOK A SHOWER TODAY. HE WEARS HIS OWN DOUG HOSE. NO NEW COMPLAINTS TODAY. STIL TREATING WITH ANTIBIOTICS AND DIURETICS. WILL CONTINUE TO MONITOR
--- NOTE | 2019-06-30 20:36 | NUR ---
2035-EMILIANO WAS SITTING ON SIDE OF BED, WATCHING TV. LUNG SOUNDS ARE DIMINISHED WITH FINE CRACKLES IN THE BASES. COUGH IS PRODUCTIVE WITH DARK RED THICK SPUTUM, STATES HE HAS TALKED TO MD ABOUT IT. HE IS ONLY ON 1 LITER BUT STATES HE FEELS SOB WITH LAYING FLAT OR WHEN HE GETS UP TO MOVE LIKE GOING TO THE BATHROOM. ENCOURAGED HIM TO DEEP BREATH OFTEN. DENIES ANY CHEST PAIN. HR IRREGULAR. ON TELEMETRY. EDEMA TO BLE, WEARING OWN DOUG HOSE. IS INDEPENDENT IN THE ROOM, DENIED ANY NEEDS AT THIS TIME. CALL LIGHT IN REACH.
--- NOTE | 2019-07-01 01:13 | NUR ---
EMILIANO GOT UP AND TOOK A WALK WITH OUT HIS OXYGEN, STATES IT FELT GOOD, AND HE DID NOT FEEL TO BADLY SOB. HE WAS GONE FOR ABOUT 10MIN OR MORE, THEN WENT BACK TO HIS ROOM.
--- NOTE | 2019-07-01 06:16 | NUR ---
SHIFT SUMMARY: EMILIANO WAS UP AND DOWN ALL NIGHT, JUST COULD NOT GET COMFORTABLE OR WOULD START TO HAVE COUGHING SPELLS. RT GAME BY SEVERAL TIMES AND GAVE BREATHING TREATMENTS. HE EVEN GOT UP AND WALKED THE ALVAREZ WITH NO OXYGEN. HE DID GET SOB WHEN WALKING TO THE ELEVATOR AND HAD TO SIT DOWN, THEN HE WALKED TO THE PHARMACY AND HAD TO SIT AGAIN. HE GOT BACK TO THE ROOM BEFORE I COULD TEST HIS SATURATION. ENCOURAGED HIM TO TELL RN NEXT TIME TO TEST SATS. COUGH HAS BEEN PRODUCTIVE WITH BLACKISH RED SPUTUM. FLUID RESTRICTION REMAINED AT 1200CC, HE CONTINUES TO WEAR DOUG HOSE. VS REMAINED WNL, AFEBRILE. NO FURTHER CHANGES TO REPORT. CALL LIGHT REMAINED IN REACH.
[2019-07-01 09:09] LABS: Bun/Creatinine Ratio 26.4 (12.0-20.0); Calcium, Blood 8.9 mg/dL (8.5-10.1); Creatinine, Blood 1.4 mg/dL (0.60-1.20)
--- NOTE | 2019-07-01 17:12 | NUR ---
PATIENT IS ALERT AND ORIENTED AND COOPERATIVE WITH CARE. PATIENT IS CURRENTLY ON 2.5L O2 VIA NC TO KEEP O2 SATS ABOVE 90%, THIS HAS VARRIED THROUGHOUT THE DAY. PATIENT WALKED FROM HIS ROOM DOWN TO THE PHARMACY THIS AFTERNOON WITH THE RN, HE COMPLAINS OF WEAKNESS AND HE DID BECOME SOB. DR. TALAMANTES SAID HE WILL ORDER HOME O2 EVAL BEFORE DISCHARGE. THE RUPERT[facility]S IS AT THE BEDSIDE AT THIS TIME. WILL CONTINUE TO MONITOR
--- NOTE | 2019-07-01 19:50 | NUR ---
ZuleymaEMILIANO WAS VISITING WITH FAMILY. HE WAS HAVING SOME TROUBLE TALKING AND NOT COUGHING ALOT. HE WAS GOOD ABOUT COVERING HIS COUGH WHILE THEY WERE PRESENT. HE DISCUSSED DISCHARGE AND FEAR OF GOING HOME ON OXYGEN, HE PERFERS TO STAY IN THE HOSPITAL TILL HE IS OFF. HE IS SCARED THAT THINGS WILL GET WORSE AT HOME. HE IS ALSO WORRIED ABOUT NOT HAVING THE NEBULIZER TREATMENTS AT HOME. TOLD HIM THE DOCTOR CAN ORDER THEM IF HE STILL NEEDS THEM. LUNG SOUNDS ARE IMPROVING, MORE AIR MOVMENT NOTED THROUGHOUT THE LUNGS BUT STILL COURSE. COUGH IS STILL PRODUCTIVE WITH REDISH BROWN SPUTUM. ENCOURAGE IF HE COULD TO GIVE ANOTHER SAMPLE. ALSO DISCUSSED USING INSPIROMETER AND FLUTTER VALVE TONIGHT TO HELP BREAK THINGS UP MORE. ALSO TO GET SOME SLEEP TONIGHT. HE SAID HE WILL. WILL CONTINUE TO WORK WITH HIM AND PROVIDE CARE THROUGHOUT THE SHIFT. CALL LIGHT IN REACH.
--- NOTE | 2019-07-02 06:24 | NUR ---
SHIFT SUMMARY: EMILIANO WAS ABLE TO SLEEP PART OF THE NIGHT COMPARED TO PREVIOUS NIGHT. HE USED HIS CPAP WHEN SLEEPING. SATS REMAINED IN THE 90'S. COUGH IS STILL VERY PRODUCTIVE OF THIS REDDISH BROWN SPUTUM. SENT SAMPLE TO LAB THEY SUGGEST IT WAS FROM THE UPPER LUNG AREA NOT FURTHE DOWN. HE HAS BEEN USING HIS IS AND FLUTTER VALVE PRN. STILL SOB WITH EXERTION NEEDING 1-2 LITERS OF O2 TO RECOVER. EDEMA +1 BLE, DOUG HOSE STILL IN PLACE. HE IS HOPING TO STAY ANOTHER NIGHT TO HELP GET HIM OFF OXYGEN BEFORE HE GOES HOME. HE ALSO IS CONCERNED ABOUT NOT HAVING NEBULIZERS AT HOME. VS WERE STABLE. BS IN THE HIGH 100'S RANGE, NO COVERAGE INDICATED. WILL REPORT TO DAYSHIFT. CALL LIGHT IN REACH.
[2019-07-02 09:36] LABS: Creatinine, Blood 1.27 mg/dL (0.60-1.20); Potassium, Blood 3.9 mmol/L (3.5-5.5)
--- NOTE | 2019-07-02 14:11 | NUR ---
SPENT A LOT OF TIME WITH HIM AND HIS THIS MORNING. I CALLED 'S OFFICE TO REQEST THAT CARDIOLOGY COME BACK PER PATIENT AND DR. CHASE. HE IS IN THE RECLINER WITH HIS LEGS UP AND CPAP ON FOR A NAP AFTER LUNCH. HE EATS WELL AND VOIDS FAIR. HE HAS MORE EDEMA TODAY THAN 3 DAYS AGO. THE RT LEG IS ALWAYS LARGER THAN THE LEFT LEG HE SAYS. TELE IS 100% PACED. HE IS STILL TACHY AROUND 110. HE CONTINUES TO BE DISCOURAGED ABOUT HIS POOR HEALTH AND IT'S INTERFERENCE IN HIS REGULAR LIFE.
--- NOTE | 2019-07-02 16:48 | NUR ---
O2 FLOW CORRECTION EMILIANO WAS WEARING HIS CPAP WITH 2L O2 BLEED WHEN VS WERE TAKEN AT 0720 AND 1610. HE WAS NOT ON ROOM AIR.
--- NOTE | 2019-07-02 17:20 | NUR ---
WAS HERE THIS AFTERNOON AND ORDERED 2 MEDICATIONS AND LAB WORK FOR THE AM. ALSO STARTED COZAAR FOR HIM TODAY. WILL MONITOR HIS U.O. POST IV BUMEX. TELE REMAINS 100% PACED. CURRENT RATE 105/MIN. O2 DELIVERY CORRECTED IN CHART FOR MORNING AND AFTERNOON VS TO CPAP WITH 2L BLEED IN INSTEAD OF ROOM AIR. I DID CHECK A RA BIOX LATER. IT WAS 90%. HIS HAS BEEN PRESENT MOST OF THE DAY BUT IS LEAVING SOON. HE IS IN BETTER SPIRITS THIS EVENING THAN HE WAS THIS MORNING. HE FEELS HE GOT A LOT OF HIS QUESTIONS ANSWERED.
[2019-07-03 05:52] LABS: Bun/Creatinine Ratio 24.3 (12.0-20.0); Calcium, Blood 8.7 mg/dL (8.5-10.1); Creatinine, Blood 1.44 mg/dL (0.60-1.20); Potassium, Blood 3.9 mmol/L (3.5-5.5)
--- NOTE | 2019-07-03 06:37 | NUR ---
SHIFT SUMMARY PT IS A 73 Y/O MALE, ADMITTED FOR ACUTE DIASTOLIC HF. HE IS A&O X 4, AND UP INDEPENDENTLY. PT IS ON A CPAP WITH 2L O2 BLEED IN. NO COMPLAINTS OF ACUTE PAIN, NAUSEA OR SOB. HR REMAINED PACED IN THE 100S. VITAL SIGNS OTHERWISE STABLE. NO OTHER ACUTE CHANGES IN PT CONDITION NOTED DURING THE NIGHT. WILL CONTINUE TO MONITOR AND TREAT PER EMAR UNTIL HAND OFF TO DAY SHIFT RN.
--- NOTE | 2019-07-03 09:23 | NUR ---
PT'S PACEMAKER CHECKED PER V/O FROM DR LONG, APPEARS IN AFIB. MODE CHANGED TO VVI [address] LONG, PLAN IF FOR PT TO CONTINUE NPO WITH CARDIOVERSION LATER THIS AFTERNOON.
--- NOTE | 2019-07-03 13:01 | NUR ---
HE HAS BEEN NPO SINCE ABOUT 0730. HE NEVER HAD ANY BREAKFAST. HE TOOK AM MEDS WITH SIPS OF WATER. HE HAD A PACEMAKER CHECK AND ADJUSTMENT. APICAL RATE HAS BEEN AT 60 EVER SINCE. HE IS SCHEDULED FOR A CARDIOVERSION LATE THIS AFTERNOON. NO CP. NO ACUTE RESP. DISTRESS. RA SAT CHECKED. IT WAS WNL. HE HAS WORN HIS CPAP A LOT TODAY BECAUSE HE KNOWS IT MAY HELP HIS HEART WORK LESS HARD. CBG'S STABLE.
--- NOTE | 2019-07-03 16:32 | NUR ---
PT TO PROCEDURE ROOM FOR CARDIOVERSION WITH DR LONG. PT IS ALERT AND ORIENTED, COOPERATIVE; DENIES CHEST PAIN OR DISCOMFORT. PT REPORTS MILD SOB, BUT THIS HAS BEEN IMPROVING. MONITOR AIFB WITH PACED BEATS 60'S, B/P 175/98, AFEBRILE, SPO2 93% RA.
--- NOTE | 2019-07-03 16:55 | NUR ---
DR LONG HERE TO EVALUATE PT. PT FOUND TO BE IN SR, CONFIRMED WITH EKG; CARDIOVERSION CANCELLED.
--- NOTE | 2019-07-03 17:30 | NUR ---
PT RETURNED TO ROOM 362 VIA W/C, REPORT GIVEN TO [facility].
--- NOTE | 2019-07-03 18:17 | NUR ---
HE REMAINED NPO ALL DAY AND LEFT FOR HEART CENTER ABOUT 1630 FOR A CARDIOVERSION. HE RETURNED ABOUT 1730 FROM THE HEART CENTER. NO CARDIOVERSION NEEDED BECAUSE HE WAS FOUND TO BE IN NSR. AN EKG CONFIRMED IT. I STARTED PO AMIODARONE AFTER HE GOT BACK AND GAVE HIM MORE IV BUMEX PER 'S ORDERS. HE HAS MAINTAINED A BIOX IN THE LOW 90'S ON RA TODAY WHEN HE HAS BEEN OFF HIS CPAP. HE SAYS HE CAN TELL NOW THAT HE IS GETTING BETTER. HIS WAS WITH HIM JUST BEFORE AND AFTER HIS HEART CENTER TIME. HE JUST ATE DINNER. PCU RN ADMIT SAYS HE IS NOW NSR 1ST DEGREE BLOCK SOME PVC'S AND OCC.ATRIAL PACED.
[2019-07-04 05:21] LABS: BASOPHILS ABSOLUTE AUTO 0.06 K/mm3 (0.00-0.23); BASOPHILS PERCENT AUTO 1 % (0-2); EOSINOPHILS ABSOLUTE AUTO 0.33 K/mm3 (0.00-0.68); EOSINOPHILS PERCENT AUTO 6 % (0-6); Hematocrit 38.6 % (37.0-53.0); Hemoglobin 11.6 g/dL (13.5-17.5); IMMATURE GRAN ABSOLUTE AUTO 0.01 K/mm3 (0.00-0.10); IMMATURE GRAN PERCENT AUTO 0 % (0-1); LYMPHOCYTES ABSOLUTE AUTO 0.85 K/mm3 (0.84-5.20); LYMPHOCYTES PERCENT AUTO 16 % (21-46); MONOCYTES PERCENT AUTO 10 % (4-13); Mean Corpuscular HGB 27.7 pg (26.0-34.0); Mean Corpuscular HGB Conc 30.1 g/dL (31.5-36.5); Mean Corpuscular Volume 92 fL (80-100); Mean Platelet Volume 10.9 fL (9.1-12.4); NEUTROPHILS ABSOLUTE AUTO 3.46 K/mm3 (1.96-9.15); NEUTROPHILS PERCENT AUTO 66 % (41-73); Platelet Count 167 K/mm3 (150-400); RDW Coefficient Variation 15.4 % (11.7-14.2); RDW Standard Deviation 52.6 fL (35.1-46.3); Red Blood Cell Count 4.19 M/mm3 (4.30-5.90); White Blood Cell Count 5.21 K/mm3 (4.00-11.30)
[2019-07-04 05:47] LABS: Bun/Creatinine Ratio 23.9 (12.0-20.0); Calcium, Blood 8.9 mg/dL (8.5-10.1); Creatinine, Blood 1.59 mg/dL (0.60-1.20); Magnesium, Blood 2.3 mg/dL (1.6-2.4); Potassium, Blood 3.7 mmol/L (3.5-5.5)
--- NOTE | 2019-07-04 06:50 | NUR ---
SHIFT SUMMARY PT IS A 73 Y/O MALE, ADMITTED FOR ACUTE DIASTOLIC HF. HE IS A&O X 4, AND INDEPENDENT IN THE ROOM. PER CHILD WELFARE SOCIAL WORKER, PT HAD A 13 BEAT RUN OF V-TACH, ASYMPTOMATIC. HOSPITALIST NOTIFIED. PT DENIED ANY CHEST PAIN, SOB, NAUSEA, OR LIGHTHEADEDNESS. PT'S TELE OTHERWISE NOTED PACED IN THE 70-80S. VITAL SIGNS STABLE. NO ACUTE CHANGES IN PT CONDITION NOTED. WILL CONTINUE TO MONITOR AND TREAT PER EMAR UNTIL HAND OFF TO DAY SHIFT RN.
--- NOTE | 2019-07-04 08:15 | NUR ---
PT PLEASANT COOP A/O. DENIES KAYLI. 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 H/R REG, NO MURMER NOTED. PACER REN. CDI. PER TELE: FULLY PACED AT 60, LUNGS CLEAR, RESP EASY, UNLABORED ON 1L N/C. BT X4 LAST BM THIS AM. SMALL. VOIDS PER BATHROOM. INDEPENDANT IN ROOM. BED IN LOW POSITION, CALL LITE IN REACH, CALLS APPROP
[2019-07-04] MEDS ORDERED: LOSA25 PO (16:58)
[2019-07-04] MEDS ORDERED: METO50ER PO (16:59)
[2019-07-04] MEDS ORDERED: Pacerone400 MG PO (17:01)
--- NOTE | 2019-07-04 18:20 | NUR ---
DISCHARGE REVIEWED WITH PT. PT VERBALIZED UNDERSTANDING OF MEDS AND INST. MEDS FAXED TO [facility]. IV PULLED INTACT. TELE REMOVED. PT WHEELED TO DOOR AT 1815
--- NOTE | 2019-07-04 18:26 | NUR ---
1600 PT STATES WILL TAKE INSULIN IF NEEDS, WHEN HOME.
== END 2019-07-04 18:15 | disposition home or self-care (01) | DRG 291 ==
LOC: ER 11:49 → MEDS 11:50
PROVIDERS: Emergency Medicine; Family Medicine; Internal Medicine; Internal Medicine Cardiovascular Disease; ADMIT Hospitalist
PROC: 5A2204Z Restoration of Cardiac Rhythm, Single (ICD-10-PCS; principal; 2019-06-26)
DX: I13.0 Hypertensive heart and chronic kidney disease with heart failure and stage 1 through stage 4 chronic kidney disease, or unspecified chronic kidney disease (principal); I50.43 Acute on chronic combined systolic (congestive) and diastolic (congestive) heart failure; J96.01 Acute respiratory failure with hypoxia; J18.9 Pneumonia, unspecified organism; R04.2 Hemoptysis; N17.9 Acute kidney failure, unspecified; E11.22 Type 2 diabetes mellitus with diabetic chronic kidney disease; N18.3 Chronic kidney disease, stage 3 (moderate); Z79.01 Long term (current) use of anticoagulants; I25.10 Atherosclerotic heart disease of native coronary artery without angina pectoris; G47.33 Obstructive sleep apnea (adult) (pediatric); I48.0 Paroxysmal atrial fibrillation; Z95.0 Presence of cardiac pacemaker; Z95.1 Presence of aortocoronary bypass graft; E78.5 Hyperlipidemia, unspecified; Z87.891 Personal history of nicotine dependence; Z79.4 Long term (current) use of insulin; E66.9 Obesity, unspecified; Z68.32 Body mass index [BMI] 32.0-32.9, adult; M10.9 Gout, unspecified
CPT/HCPCS: 36415; 71045; 71250; 80048; 80053; 80069; 82947; 83735; 83880; 84145; 84443; 84484; 85014; 85018; 85025; 87070; 87205; 93005; 93010; 93280; 94640; 94660; 94760; 94762; 96365; 96367; 96375; 96376; 99285-25; A9270; A9270-GY; C8929; G0378; J0456; J0696; J1815; J2250; J3010; J7040; J7050; Q9957

== ENCOUNTER 2020-03-04 20:22 | Inpatient (IN) | payer OTHER, MEDICARE ==
[~2020-03-04] VITALS: Ht 182.9 cm; Wt 97.7 kg
[~2020-03-04 20:22] MED LIST changes: +AMLO10 PO; +Bumetanide1 MG PO; +HYDRA25 PO; +LOSA25 PO; +LOSARTAN POTAS100 M1 PO
[2020-03-04 20:38] LABS: BASOPHILS ABSOLUTE AUTO 0.02 K/mm3 (0.00-0.23); BASOPHILS PERCENT AUTO 0 % (0-2); EOSINOPHILS ABSOLUTE AUTO 0.01 K/mm3 (0.00-0.68); EOSINOPHILS PERCENT AUTO 0 % (0-6); Hematocrit 39.2 % (37.0-53.0); Hemoglobin 11.7 g/dL (13.5-17.5); IMMATURE GRAN PERCENT AUTO 1 % (0-1); LYMPHOCYTES ABSOLUTE AUTO 0.53 K/mm3 (0.84-5.20); LYMPHOCYTES PERCENT AUTO 5 % (21-46); MONOCYTES ABSOLUTE AUTO 0.61 K/mm3 (0.16-1.47); MONOCYTES PERCENT AUTO 6 % (4-13); Mean Corpuscular HGB 26.5 pg (26.0-34.0); Mean Corpuscular HGB Conc 29.8 g/dL (31.5-36.5); Mean Corpuscular Volume 89 fL (80-100); Mean Platelet Volume 12.2 fL (9.1-12.4); NEUTROPHILS PERCENT AUTO 88 % (41-73); Platelet Count 144 K/mm3 (150-400); RDW Coefficient Variation 17.4 % (11.7-14.2); RDW Standard Deviation 56.3 fL (35.1-46.3); Red Blood Cell Count 4.41 M/mm3 (4.30-5.90); White Blood Cell Count 10.67 K/mm3 (4.00-11.30)
[2020-03-04 21:01] LABS: Albumin, Blood 2.9 g/dL (3.4-5.0); Albumin/Globulin Ratio 0.9 (0.8-1.8); Bilirubin, Total 1.4 mg/dL (0.1-1.0); Calcium, Blood 8.5 mg/dL (8.5-10.1); Creatinine, Blood 2.28 mg/dL (0.60-1.20); Globulin, Blood 3.2 g/dL (2.2-4.0); Potassium, Blood 4.6 mmol/L (3.5-5.5); Total Protein, Blood 6.1 g/dL (6.4-8.2); Troponin I 0.044 ng/mL (0.000-0.040)
[2020-03-04] MEDS ORDERED: ELIQUIS5 MG PO (22:13)
[2020-03-04] MEDS ORDERED: EUTHYROX50 MCG PO (22:14)
[2020-03-04] MEDS ORDERED: ENTRESTO 97 MG1 EAC3 PO (22:14)
[2020-03-04] MEDS ORDERED: STIOLTO RESPIMAT4 G1 INH (22:15)
[2020-03-04] MEDS ORDERED: Amiodarone HCl200 MG PO (22:16)
[2020-03-04] MEDS ORDERED: METO100ER PO (22:16)
[2020-03-04] MEDS ORDERED: Aspirin EC81 MG PO (22:30)
[2020-03-04] MEDS ORDERED: METO50ER PO (22:31)
[2020-03-04] MEDS ORDERED: ATOR40TA PO (22:33)
[2020-03-04] MEDS ORDERED: BUME1 PO (22:33)
[2020-03-04] MEDS ORDERED: NOVOLOG FL100 UNIT/3 SC (22:33)
[2020-03-04] MEDS ORDERED: BASAGLAR K100 UNIT/1 SC (22:33)
[2020-03-04] MEDS ORDERED: ALBU90OI INH (22:34)
[2020-03-04] MEDS ORDERED: ALLO300 PO (22:44)
[2020-03-04] MEDS ORDERED: COLCHICINE0.6 MG PO (22:44)
--- NOTE | 2020-03-05 04:37 | NUR ---
FURNITURE DECALS INSPECTOR SUMMARY ALERT AND ORIENTED. OCCASIONAL PRODUCTIVE COUGH NOTED, PT REPORTS RED TINGED SPUTUM. DENIES PAIN. COMPLIANT WITH CPAP, CONT. BIOX IN PLACE WITH SATS GREATER THAN 93. CRACKLES NOTED IN BASES UPON AUSCULTATION. NO ACUTE CHANGES AT THIS TIME. BED IN LOWEST POSITION WITH CALL LIGHT IN REACH. WILL CONTINUE TO MONITOR AND REPORT TO ONCOMING RN.
[2020-03-05 06:06] LABS: Bun/Creatinine Ratio 20.3 (12.0-20.0); Calcium, Blood 8.8 mg/dL (8.5-10.1); Creatinine, Blood 2.27 mg/dL (0.60-1.20); Potassium, Blood 4.5 mmol/L (3.5-5.5); Troponin I 0.043 ng/mL (0.000-0.040)
[2020-03-05 12:51] LABS: BASOPHILS ABSOLUTE AUTO 0.01 K/mm3 (0.00-0.23); BASOPHILS PERCENT AUTO 0 % (0-2); EOSINOPHILS PERCENT AUTO 0 % (0-6); Hematocrit 38.5 % (37.0-53.0); Hemoglobin 11.6 g/dL (13.5-17.5); IMMATURE GRAN ABSOLUTE AUTO 0.05 K/mm3 (0.00-0.10); IMMATURE GRAN PERCENT AUTO 1 % (0-1); LYMPHOCYTES ABSOLUTE AUTO 0.48 K/mm3 (0.84-5.20); LYMPHOCYTES PERCENT AUTO 5 % (21-46); MONOCYTES ABSOLUTE AUTO 0.57 K/mm3 (0.16-1.47); MONOCYTES PERCENT AUTO 5 % (4-13); Mean Corpuscular HGB 26.8 pg (26.0-34.0); Mean Corpuscular HGB Conc 30.1 g/dL (31.5-36.5); Mean Corpuscular Volume 89 fL (80-100); Mean Platelet Volume 11.2 fL (9.1-12.4); NEUTROPHILS ABSOLUTE AUTO 9.58 K/mm3 (1.96-9.15); NEUTROPHILS PERCENT AUTO 90 % (41-73); Platelet Count 133 K/mm3 (150-400); RDW Coefficient Variation 17.3 % (11.7-14.2); Red Blood Cell Count 4.33 M/mm3 (4.30-5.90); White Blood Cell Count 10.69 K/mm3 (4.00-11.30)
--- NOTE | 2020-03-06 00:30 | NUR ---
03/05/201999 PT RESTING COMFORTABLY IN BED WITH AT SIDE; CHEERFUL; DENIES PAIN OR NAUSEA; LUNG SOUNDS ARE DIMINISHED THROUGHOUT; ALERT AND ORIENTED X 4.
--- NOTE | 2020-03-06 03:38 | NUR ---
SHIFT SUMMARY: 74 Y/O MALE RESTED IN BEDSIDE LOUNGE CHAIR LAST 1/2 OF SHIFT WHILE WEARING CPAP WITH OCCASIONAL DRY NON PRODUCTIVE COUGH NOTED; LUNG SOUNDS ARE DIMINISHED THROUGHOUT; DENIES PAIN OR NAUSEA; ALERT AND ORIENTED X 4; BED/CHAIR ALARMS APPLIED, BED LOW POSITION WITH CALL LIGHT AT SIDE.
[2020-03-06 05:30] LABS: BASOPHILS ABSOLUTE AUTO 0.02 K/mm3 (0.00-0.23); BASOPHILS PERCENT AUTO 0 % (0-2); EOSINOPHILS ABSOLUTE AUTO 0.01 K/mm3 (0.00-0.68); EOSINOPHILS PERCENT AUTO 0 % (0-6); Hematocrit 38.5 % (37.0-53.0); Hemoglobin 11.8 g/dL (13.5-17.5); IMMATURE GRAN ABSOLUTE AUTO 0.08 K/mm3 (0.00-0.10); IMMATURE GRAN PERCENT AUTO 1 % (0-1); LYMPHOCYTES ABSOLUTE AUTO 0.42 K/mm3 (0.84-5.20); LYMPHOCYTES PERCENT AUTO 4 % (21-46); MONOCYTES ABSOLUTE AUTO 0.54 K/mm3 (0.16-1.47); MONOCYTES PERCENT AUTO 5 % (4-13); Mean Corpuscular HGB 26.8 pg (26.0-34.0); Mean Corpuscular HGB Conc 30.6 g/dL (31.5-36.5); Mean Corpuscular Volume 88 fL (80-100); Mean Platelet Volume 12.6 fL (9.1-12.4); NEUTROPHILS ABSOLUTE AUTO 10.81 K/mm3 (1.96-9.15); NEUTROPHILS PERCENT AUTO 91 % (41-73); Platelet Count 151 K/mm3 (150-400); RDW Coefficient Variation 17.4 % (11.7-14.2); RDW Standard Deviation 55.6 fL (35.1-46.3); White Blood Cell Count 11.88 K/mm3 (4.00-11.30)
[2020-03-06 06:02] LABS: Albumin, Blood 2.8 g/dL (3.4-5.0); Anion Gap 6 mmol/L (6-16); Blood Urea Nitrogen 60 mg/dL (8-24); Bun/Creatinine Ratio 22.5 (12.0-20.0); CO2, Blood 30 mmol/L (21-32); Calcium, Blood 8.8 mg/dL (8.5-10.1); Chloride, Blood 99 mmol/L (98-108); Creatinine, Blood 2.67 mg/dL (0.60-1.20); Glomerular Filtration Rate 25 (60-); Glucose, Blood 171 mg/dL (70-99); Phosphorus, Blood 2.7 mg/dL (2.5-4.9); Potassium, Blood 4.7 mmol/L (3.5-5.5); Sodium, Blood 135 mmol/L (136-145)
--- NOTE | 2020-03-06 11:49 | NUR ---
FLUID RESTRICTION REDUCED PER DR. ROSALES, FLUID RESTRICTION TO BE REDUCED FROM 1500 TO 1000 CC DAILY. FOLLOW WITH STRICT I/O PER ORDERS. DIET AND ORDER UPDATED.
--- NOTE | 2020-03-06 17:34 | NUR ---
BLADDER SCAN/STRAIGHT CATH PATIENT HAD VOIDED ONCE THIS SHIFT IN THE MORNING AND DENIED THE NEED TO URINATE AGAIN. BLADDER SCAN PERFORMED AND SHOWED [address] ROSALES AND RECEIVED T.O. FOR STRAIGHT CATH FOR PVD GREATER THAN 400 Q SHIFT. ORDER UPDATED.
--- NOTE | 2020-03-06 19:11 | NUR ---
HOLD ELIQUIS PER DR. ROSALES, HOLD ELIQUIS FOR TONIGHT D/T HEMOPTYSIS. EMAR UPDATED.
--- NOTE | 2020-03-06 19:37 | NUR ---
Shift Summary A/Ox3, patient has increased drowsiness today but easily awakens to verbal stimuli. Continues to have productive cough c hemoptysis. 1P moderate assist c gait belt. Daughter has been in visiting. Compliant with fluid restrictions, appetite is poor. C/O low energy and has dyspnea c exertion. 3L NC continuous O2 @ 91-94%, biox in place. Family has been involved with care. Patient requesting his Digital Color Press Operator Dr. Moncada be consulted and on his case, Dr. Moreland has been notified of this and is aware. Lung sounds are crackly in lower lobes. Temp 101.3, medicated with Tylenol with good effect. Report given to oncoming RN.
--- NOTE | 2020-03-07 04:42 | NUR ---
SHIFT SUMMARY DURING SHIFT ASSESSMENT PT WAS A&O X4. AROUND MIDNIGHT PT BECAME SLIGHTLY CONFUSED, REQUESTING TO "GO SHOPPING", "CANCLE HIS ORDER" AND TO "CALL MY SO WE CAN GET THINGS UNDER CONTROL." ONCE REORIENTED, PT WOULD REMEMBER IT WAS LATE AT NIGHT AND HE WOULD GO BACK TO SLEEP. PT SEEMED TO BE UNCOMFORTABLE IN BED, THIS RN AND ANOTHER RN, STOOD PT AT BEDSIDE, TRIED USING THE URINAL, WITHOUT SUCCESS, THEN TRANSFERRED TO CHAIR @0200. PLACED PT BACK ON CPAP AND PT SLEPT WELL FOR 4 HOURS. PT BACK INTO BED @ 0410 BLADDER SCAN OBTAINED SHOWING 501 ML, STRAIGHT CATH TO DRAIN BLADDER 450 ML OUT. PT IS LAYING IN BED, EVEN RESPIRATIONS ON CPAP. BED IN LOWERED POSITION WITH ALARM IN PLACE. CALL LIGHT AND PERSONAL ITEMS WITH IN REACH. NO APPARENT NEEDS OR DISTRESS AT THIS TIME, WILL CONTINUE TO MONITOR UNTIL REPORT GIVEN TO DAY RN.
[2020-03-07 05:35] LABS: BASOPHILS ABSOLUTE AUTO 0.02 K/mm3 (0.00-0.23); BASOPHILS PERCENT AUTO 0 % (0-2); EOSINOPHILS PERCENT AUTO 0 % (0-6); Hematocrit 38.8 % (37.0-53.0); Hemoglobin 12.1 g/dL (13.5-17.5); IMMATURE GRAN ABSOLUTE AUTO 0.06 K/mm3 (0.00-0.10); IMMATURE GRAN PERCENT AUTO 1 % (0-1); LYMPHOCYTES ABSOLUTE AUTO 0.28 K/mm3 (0.84-5.20); LYMPHOCYTES PERCENT AUTO 3 % (21-46); MONOCYTES ABSOLUTE AUTO 0.15 K/mm3 (0.16-1.47); MONOCYTES PERCENT AUTO 1 % (4-13); Mean Corpuscular HGB 27.1 pg (26.0-34.0); Mean Corpuscular HGB Conc 31.2 g/dL (31.5-36.5); Mean Corpuscular Volume 87 fL (80-100); Mean Platelet Volume 12.1 fL (9.1-12.4); NEUTROPHILS ABSOLUTE AUTO 10.86 K/mm3 (1.96-9.15); NEUTROPHILS PERCENT AUTO 96 % (41-73); Platelet Count 131 K/mm3 (150-400); RDW Coefficient Variation 17.5 % (11.7-14.2); RDW Standard Deviation 54.6 fL (35.1-46.3); Red Blood Cell Count 4.47 M/mm3 (4.30-5.90); White Blood Cell Count 11.37 K/mm3 (4.00-11.30)
[2020-03-07 05:56] LABS: Bun/Creatinine Ratio 24.6 (12.0-20.0); Creatinine, Blood 3.05 mg/dL (0.60-1.20); Potassium, Blood 4.3 mmol/L (3.5-5.5)
--- NOTE | 2020-03-07 12:00 | NUR ---
PT/OT AND NEPHROLOGY CONSULT RECEIVED VERBAL ORDER FROM DR. ROSALES FOR PT/OT AND CONSULT TO NEPHROLOGY. ORDERS HAVE BEEN UPDATED.
--- NOTE | 2020-03-07 12:36 | NUR ---
VERBAL ORDER FROM DR. ARMANDO TO GIVE 4 MG IV BUMEX NOW AND BID, METOLAZONE 5 MG NOW AND BID, CHANGE DOSE ON TO TO BE GIVEN DIALY, PLACE CANALES CATHETER FOR RETENTION AND STRICT I/O, AND ORDER PSA LAB TEST FOR THE AM. ALSO FOR STAT ABG, WILL NOTIFY DR. ARMANDO WITH RESULTS OF ABG.
[2020-03-07 12:37] LABS: PCO2 Arterial 40.2 mmHg (35-45); PO2 Arterial 59.9 mmHg (80-100); pH Blood Arterial 7.47 (7.35-7.45)
--- NOTE | 2020-03-07 14:29 | NUR ---
CANALES CATHETER PATIENT HAS BEEN RETAINING URINE AND DIFFICULT TO KEEP STRICT I/O'S DOCUMENTED. PER DR. ARMANDO, CANALES PLACED FOR RETENTION AND STRICT I/O
--- NOTE | 2020-03-07 14:44 | NUR ---
SPIRONOLACTONE PARAMETER RECEIVED VERBAL ORDER TO HOLD SPIRONOLACTONE IF POTASSIUM IS GREATER THAN 4.[address] Jordana ARMANDO. ORDER UPDATED WITH PARAMETER
--- NOTE | 2020-03-07 17:58 | NUR ---
Shift Summary A/Ox4 this shift. Dr. Dorsey consulted and orders have been placed. Plan for permacath placement tomorrow 03/08 and dialysis soon. Qureshi catheter placed patent and draining well. Tele: Aflutter 74. Occassionally obtunded and drowsy, still awakens to verbal stimuli. Blood sugars have been stable, no appetite and PO intake is extremely minimal. Insulin has been held today d/t this, Dr. Moreland is aware. ABG's completed this shift (see lab). Oxygen needs increased from 6 to 8 on CPAP, from 3 to 4L NC with sats between 91-93% per continuous biox. Will continue to monitor and report to oncoming RN.
[2020-03-07 18:53] LABS: Source, Urine Catheter
[2020-03-07 18:59] LABS: Appearance, Urine Hazy (Clear); Bilirubin, Urine Neg (Neg); Blood, Urine 3+ (Neg); Color, Urine Yellow (P-Yellow); Glucose Qualitative, Urine Neg (Neg); Ketones, Urine Neg (Neg); Leukocyte Esterase, Urine Neg (Neg); Nitrite, Urine Neg (Neg); Protein, Urine 2+ (Neg); Urobilinogen, Urine NORM (Normal)
[2020-03-07 19:13] LABS: Amorphous Heavy (0-Heavy); Bacteria Few /hpf; Red Blood Cells, Urine 0-2 /hpf (0-2); Squamous Epithelial Cells Few /hpf (Few); White Blood Cells, Urine Not Seen /hpf (0-5)
--- NOTE | 2020-03-07 19:21 | NUR ---
IV BUMEX RECEIVED T.O. FROM DR. ARMANDO TO GIVE 40 MG IV BUMEX ONE TIME DOSE @ 1999. EMAR UPDATED AND REPORT GIVEN TO ONCTRACEE FOWLER.
--- NOTE | 2020-03-08 05:29 | NUR ---
SHIFT SUMMARY PT CONTINUES TO BE DROWSY. SOME MILD CONFUSION EARLY IN THE SHIFT WITH ASSESSMENT. PT STATED THAT IT WAS 2000 AND REPEATED THE WORD "TRI" OVER AND OVER WHEN ASKED WHERE HE WAS. LATER IN SHIFT THIS AM PT'S MENTATION CLEARED AGAIN. PT SLEPT MOST OF THE SHIFT. PT HAS WET SOUNDING COUGH THAT FREQUENTLY HE IS UNABLE TO CLEAR THE PHLEGM FROM HIS THROAT. PT DID HAVE SEVERAL EPISODES OF HEMOPTYSIS WHEN HE WAS ABLE TO CLEAR HIS THROAT. PHLEGM APPEARS TO BE MOSTLY BLOOD, SOME CLOTS IN IT. PT MOANS AT TIMES, WHEN ASKED WHATS WRONG PT EITHER SAYS, "NOTHING" OR STATES THAT HE IS JUST TRYING TO CLEAR OUT HIS THROAT. CANALES CATHETER PATENT AND DRAINING. PT HAD 1200 OUT IN URINE THIS EVENING. PT WORE CPAP MUCH OF THE NIGHT. REQUESTED NC THIS AM. PT ON 4 L VIA NC AND 7 L BLEEDIN WITH CPAP. O2 SATS REMAIND IN THE LOW TO MID 90'S THROUGHOUT THE NIGHT. PT'S BLOOD GLUCOSE LEVELS LOW, NIGHTTIME INSULIN HELD. PT WITH POOR APPETITE. PT REMAINED IN BED THE ENTIRE EVENING. VITAL SIGNS STABLE. WILL CONTINUE TO MONITOR AND REPORT TO DAY RN.
[2020-03-08 05:56] LABS: Hematocrit 34.6 % (37.0-53.0); Hemoglobin 10.8 g/dL (13.5-17.5); Mean Corpuscular HGB 26.1 pg (26.0-34.0); Mean Corpuscular HGB Conc 31.2 g/dL (31.5-36.5); Mean Corpuscular Volume 84 fL (80-100); NRBC ABSOLUTE 0.02 K/mm3 (0.00-0.02); NRBC Auto 0.2 /100 WBC (0.0-0.2); Platelet Count 92 K/mm3 (150-400); RDW Coefficient Variation 17.3 % (11.7-14.2); RDW Standard Deviation 52.9 fL (35.1-46.3); Red Blood Cell Count 4.14 M/mm3 (4.30-5.90); White Blood Cell Count 9.78 K/mm3 (4.00-11.30)
[2020-03-08 06:18] LABS: Anion Gap 8 mmol/L (6-16); Blood Urea Nitrogen 83 mg/dL (8-24); Bun/Creatinine Ratio 29.2 (12.0-20.0); CO2, Blood 29 mmol/L (21-32); Calcium, Blood 8.5 mg/dL (8.5-10.1); Chloride, Blood 101 mmol/L (98-108); Creatinine, Blood 2.84 mg/dL (0.60-1.20); Glomerular Filtration Rate 23 (60-); Glucose, Blood 95 mg/dL (70-99); Magnesium, Blood 2.4 mg/dL (1.6-2.4); Phosphorus, Blood 4.8 mg/dL (2.5-4.9); Potassium, Blood 3.7 mmol/L (3.5-5.5); Sodium, Blood 138 mmol/L (136-145)
[2020-03-08 06:22] LABS: BAND PERCENT MAN 37 % (0-8); BASOPHILS PERCENT MAN 0 % (0-2); EOSINOPHILS PERCENT MAN 0 % (0-6); LYMPHOCYTES ABSOLUTE MAN 0.29 K/mm3 (0.84-5.20); LYMPHOCYTES PERCENT MAN 3 % (21-46); METAMYELOCYTE ABSOLUTE MAN 0.09 K/mm3 (0.00-0.00); METAMYELOCYTE PERCENT MAN 1 % (0-0); MONOCYTES ABSOLUTE MAN 0.09 K/mm3 (0.16-1.47); MONOCYTES PERCENT MAN 1 % (4-13); NEUTROPHILS ABSOLUTE MAN 9.29 K/mm3 (1.96-9.15); SEG NEUTROPHILS PERCENT MAN 58 % (41-73); TOTAL CELLS COUNTED 100
--- NOTE | 2020-03-08 19:38 | NUR ---
Shift Summary Adryan has been at bedside for most of the day assisting with meals/drinks. Physical therapy worked with patient today (see PT note). Family has been extremely tearful with regard to patient's drastic decline physically and cognitively. Lung sound: fine crackles to left side. Qureshi patent and draining. Still have productive cough with bright red sputum; however, appears to be improving compared to yesterday. Patient is now wearing 5L O2 NC and 7L via CPAP, saturations range 87-92% per biox. A/Ox3 today. Adryan brought in pacemaker card, copy made and in cubby/chart. Plan for pacemaker interrogation tomorrow 03/09. Appetite remains poor, insulin held this shift. Report given to oncoming RN.
--- NOTE | 2020-03-09 04:12 | NUR ---
PT with WHITLEY & pneumonia continues on high flow oxygen 7l to 5 l or cpap with oxygen bleed in baseline cpap with 6 l was up to 10 l with cpap weaned to 5 l high flow & 6 l bleed in with cpap . PT on iv bumex 4 mg bid has dark nany urine. Minimal oral intake fed 1 yogurt 100% & 1 nepro strawberry 100% with total feeding. Semglee insulin held at HS BG 108 due to very poor oral intake & other insulins were being held. PT had med brown BM on bedpan. on 1000 ml fluid restriction. PT unable to swallow meds whole in applesauce. LOC lethargic but speaks 1 or [address] done this shift. PT has dual chamber pacemaker. brought equipment for interregation & it is at bedside. PT on tele monitor aflutter all shift. Anticoagulant dc due to hemoptisis. None this shift.
[2020-03-09 05:51] LABS: Hematocrit 32.3 % (37.0-53.0); Hemoglobin 10.4 g/dL (13.5-17.5); Mean Corpuscular HGB 26.7 pg (26.0-34.0); Mean Corpuscular HGB Conc 32.2 g/dL (31.5-36.5); Mean Corpuscular Volume 83 fL (80-100); Platelet Count 74 K/mm3 (150-400); RDW Coefficient Variation 17.2 % (11.7-14.2); White Blood Cell Count 8.98 K/mm3 (4.00-11.30)
[2020-03-09 06:14] LABS: BAND PERCENT MAN 27 % (0-8); BASOPHILS PERCENT MAN 0 % (0-2); EOSINOPHILS PERCENT MAN 0 % (0-6); LYMPHOCYTES ABSOLUTE MAN 0.26 K/mm3 (0.84-5.20); LYMPHOCYTES PERCENT MAN 3 % (21-46); MONOCYTES ABSOLUTE MAN 0.08 K/mm3 (0.16-1.47); MONOCYTES PERCENT MAN 1 % (4-13); NEUTROPHILS ABSOLUTE MAN 8.62 K/mm3 (1.96-9.15); SEG NEUTROPHILS PERCENT MAN 69 % (41-73); TOTAL CELLS COUNTED 100
[2020-03-09 06:19] LABS: Bun/Creatinine Ratio 31.7 (12.0-20.0); Calcium, Blood 8.2 mg/dL (8.5-10.1); Creatinine, Blood 2.93 mg/dL (0.60-1.20); Potassium, Blood 3.4 mmol/L (3.5-5.5); Thyroid Stimulating Hormone 2.86 uIU/mL (0.360-4.800)
--- NOTE | 2020-03-09 07:26 | NUR ---
DR Dorsey updated on poor swallow effort unable to swallow meds whole aspiration risk increased oxygen needs. hemoptisis x 1 in kleenex.
[2020-03-09 10:05] LABS: PCO2 Arterial 39.7 mmHg (35-45); PO2 Arterial 56.9 mmHg (80-100); pH Blood Arterial 7.47 (7.35-7.45)
--- NOTE | 2020-03-09 10:40 | NUR ---
PT REMAINS ON CPAP AFTER ABG COLLECTED. RT REPORTED THAT PT IS HYPOXIC AND COMPENSATING. CPAP ADJUSTED WITH 10L O2 BLEED. PT SATING AT 88-91 PERCENT. ABG RESULTS CALLED TO DR. ROSALES. COVID SWAB COLLECTED & SENT TO LAB. EKG COMPLETED. STAT LABS DRAWN. AWAITING ICU BED TO BE CLEANED FOR TRANSFER. PT AT BEDSIDE AND AWARE OF PLANNED TRANSFER.
[2020-03-09 11:16] LABS: Influenza A, PCR Negative (NEGATIVE); Influenza B, PCR Negative (NEGATIVE); Resp Syncytial Virus, PCR Negative (NEGATIVE); SARS-Cov-2 (COVID-19) PCR, MMC Negative (NEGATIVE)
--- NOTE | 2020-03-09 13:00 | NUR ---
Received report from med Rn and patient transferred via medical bed. He was a four person slide transfer. Placed mepelex style dressing on coccyx and took picture of buttocks and two dark purple sites. Patient arrived on 10L o2 via NC and shortly transferred back to CPAP 14/12 FiO2 75% and sats 94%, He has rodrigues in place with dark nany colored urine. He was able to communicate in soft voice for brief periods. HUYNH but very weak and sore.
--- NOTE | 2020-03-09 13:10 | NUR ---
TRANSFERED TO ICU PT TRANSFERED TO ICU 16. REPORT GIVEN TO DOLORES GARRISON RN. PT , BRYANT SHOWN TO ICU WAITING AREA.
--- NOTE | 2020-03-09 13:56 | NUR ---
PT'S PACEMAKER CHECKED PER HOSPITALIST ORDER, RESULTS ROUTED TO DR LONG IN PACEART/OPTIMA, COPIES PLACED ON CHART AND IN DR BEAULIEU'S READING BOX
--- NOTE | 2020-03-09 15:30 | NUR ---
Placed PICC line in [place], started Levophed 5 mcg/min for systolics in the 70-80's and currently 112. Dr Walsh by and US heart and called Dr Delcid and she came by and is ordering ECHO and Bumex gtt. at bedside and have update family Dr and well as Dr Walsh updated family DR by dayan. just leaving and has been updated on visiting policy starting tomorrow. Patient resting and no BIPAP changes.
--- NOTE | 2020-03-09 18:32 | NUR ---
Patient remains on BIPAP14/12 FiO2 75% and sats 94%. ECHO done and Dr Delcid and Dr Walsh spoke, will revaluate in am for any new treatment. He remains on Levophed at 5 mcg/min and NS TKO. He is able to assist with repositiong but mustapha sore from laying in bed. He still is able to communicate in short sentances. Qureshi remains draining to gravity.
--- NOTE | 2020-03-09 20:20 | NUR ---
ASSUMED PT CARE FROM JANETH BERNAL AT 1900 PT LYING IN BED WITH BIPAP IN PLACE; 29/03; 65% FIO2. OXYGEN SATURATIONS REMAIN >90%. RESP RATE 20-30'S. PT NOTED TO BE IN AFLUTTER WITH RATE 60-70'S. PT DOES HAVE A PACEMAKER. PT IS ALERT AND ORIENTED AND ABLE TO MAKE NEEDS KNOWN. VERY LETHARGIC AND DROWSY. LEVOPHED INFUSING AT 5MCG/MIN VIA PICC LINE TO RIGHT UPPER ARM. NS TKO. LUNG SOUNDS NOTED TO HAVE INSPIRATORY CRACKLES TO LLL; CLEAR T/O ALL OTHER LOBES. ABDOMEN IS SEVERLY DISTENDED, FIRM, AND TENDER UPON PALPATION TO ALL QUADRANTS; BOWEL TONES ACTIVE IN ALL QUADRANTS WITH "PINGING" LIKE NOISES TO BILATERAL UPPER QUADRANTS. PT DENIES PAIN ELSEWHERE. REPOSITIONED FOR COMFORT AND CALL LIGHT LEFT WITHIN REACH.
[2020-03-10 04:31] LABS: Hematocrit 31.9 % (37.0-53.0); Hemoglobin 10.2 g/dL (13.5-17.5); Mean Corpuscular HGB 26.5 pg (26.0-34.0); Mean Corpuscular Volume 83 fL (80-100); Platelet Count 66 K/mm3 (150-400); RDW Coefficient Variation 17.4 % (11.7-14.2); RDW Standard Deviation 52.2 fL (35.1-46.3); Red Blood Cell Count 3.85 M/mm3 (4.30-5.90); White Blood Cell Count 11.45 K/mm3 (4.00-11.30)
[2020-03-10 04:46] LABS: Alanine Aminotransfer (ALT/SGP 97 U/L (12-78); Albumin, Blood 1.7 g/dL (3.4-5.0); Albumin/Globulin Ratio 0.5 (0.8-1.8); Alk Phos 74 U/L (50-136); Anion Gap 7 mmol/L (6-16); Aspartate Aminotrans (AST/SGOT 276 U/L (12-37); Bilirubin, Total 1.3 mg/dL (0.1-1.0); Blood Urea Nitrogen 114 mg/dL (8-24); Bun/Creatinine Ratio 33.2 (12.0-20.0); CO2, Blood 31 mmol/L (21-32); Calcium, Blood 8.4 mg/dL (8.5-10.1); Chloride, Blood 102 mmol/L (98-108); Creatinine, Blood 3.43 mg/dL (0.60-1.20); Globulin, Blood 3.6 g/dL (2.2-4.0); Glomerular Filtration Rate 19 (60-); Glucose, Blood 126 mg/dL (70-99); Magnesium, Blood 2.8 mg/dL (1.6-2.4); Phosphorus, Blood 6.5 mg/dL (2.5-4.9); Potassium, Blood 3.5 mmol/L (3.5-5.5); Sodium, Blood 140 mmol/L (136-145); Total Protein, Blood 5.3 g/dL (6.4-8.2); Vancomycin, Random 20.3 ug/mL
[2020-03-10 05:45] LABS: BAND PERCENT MAN 18 % (0-8); BASOPHILS PERCENT MAN 0 % (0-2); EOSINOPHILS PERCENT MAN 0 % (0-6); LYMPHOCYTES ABSOLUTE MAN 0.45 K/mm3 (0.84-5.20); LYMPHOCYTES PERCENT MAN 4 % (21-46); MONOCYTES PERCENT MAN 0 % (4-13); NEUTROPHILS ABSOLUTE MAN 10.99 K/mm3 (1.96-9.15); SEG NEUTROPHILS PERCENT MAN 78 % (41-73); TOTAL CELLS COUNTED 100
--- NOTE | 2020-03-10 06:30 | NUR ---
END OF SHIFT SUMMARY NO BIPAP CHANGES T/O NIGHT. PT TOLERATED TWO BREAKS ON 10-15L HIFLOW HUMIDIFIED OXYGEN WITH SPO2 >90%. PT HAS REMAINED ALERT AND ORIENTED AND ABLE TO MAKE NEEDS KNOWN. LUNG SOUNDS REMAIN DIMINSHED T/O ON LEFT SIDE AND CLEAR TO DIMINISHED T/O RIGHT LOBES. AFLUTTER WITH RATE 60-70'S. LEVOPHED TITRATED BETWEEN 3 AND 5MCG/MIN, CURRENTLY BACK AT 5MCG/MIN. MINIMAL URINE OUTPUT; DARK HORACIO WITH SEDIMENT NOTED. CALL LIGHT WITHIN REACH; PT ABLE TO MAKE NEEDS KNOWN
--- NOTE | 2020-03-10 07:41 | NUR ---
Received report from Yesenia FOWLER. Patient resting in bed with HOB at 30 degrees [address]. BIPAP setting 16/12 and FiO2 55% with sats 92%. He has PICC line in [place] and is infusing Levophed at 5 mcg/min and systolics 100's and MAP >65. He also has NS TKO. He has 16Fr rodrigues draining to gravity nany colored urine. Oral care done and repositioned and had patient swish and swallow and did not tolerate sips of water and will be unable to manage PO meds. HUYNH but very weak. HJe is unable to take breaks from BIPAP with quick de-sats.
--- NOTE | 2020-03-10 09:30 | NUR ---
Patient continues on BIPAP 16/12 FiO2 55% and sats>90%. Have been taking mask off frequently and letting him rinse mouth and has thick mucous from throat when rinsing. Daughter by and spent time with him. VSS, See EMR. Levophed remaisn at 5 mcg/min for MAP's >65.
--- NOTE | 2020-03-10 12:02 | NUR ---
Istrate by to see patient. RT reduced FiO2 to 45% and sats remains >90%. No Other significant changes with patient. CBG 102 no coverage needed.
--- NOTE | 2020-03-10 13:30 | NUR ---
Patient continues to rest on BIPAP. Sent sputum sample to lab. Dr Walsh in room to assess. He has small amount of blood in mouth, unknown origin. Levophed remains at 5 mcg/min for MAP's >65, NS TKO VSS, See EMR. Patient alittle more alert and is phillip to communicate needs better.
--- NOTE | 2020-03-10 15:20 | NUR ---
No changes with patient. Placed on bedpan and awaiting results.
--- NOTE | 2020-03-10 18:07 | NUR ---
Patient remains on BIPAP 16/12 and 45% FiO2. He continues to be mostly alert and able to communicate needs if at bedside. Rectal temp probe in place. Qureshi intact and draining to gravity light nany colored urine. VSS, See EMR. Dr Walsh has been by and updated and will follow up with any changes.
--- NOTE | 2020-03-10 20:57 | NUR ---
CARE ASSUMED 1900 PT ON BIPAP (29/03, FIO2 45%) AND SPO2 88-93%. LEVOPHED AT 7 MCG/KG/MIN, MAP > 65, INFUSING TO PICC LINE IN [place]. PT IN AFIB AND OCCASIONALLY ATRIAL FLUTTER WITH OCCASIONAL PACER SPIKES, HR 60-70'S. PT A/O TO BEING IN [place] AND AT A HOSPITAL. PT STATES HE IS IN [facility], REORIENTED. EASILY FATIGUED WHEN COMMUNICATING. ABLE TO MAKE NEEDS KNOWN. FREQUENT ORAL CARE DONE WITH BLOOD TINGED THICK SECREATIONS. PT IS PALE AND DIAPHORTIC, STATES BEING HOT. TWO FANS PLACED AND COOL CLOTH TO NECK/HEAD/LOWER EXTREMS. SCD'S IN PLACE. TEMP CANALES IN PLACE (100.8), DRAINING TO GRAVITY WITH 150 MLS OF DARK YELLOW URINE IN BAG. PT STATES HAVING CHRONIC RIGHT LEG PAIN WHEN MOVED, PT GRIMACES WHEN RIGHT LEG IS MOVED. WHEN RESTING PT STATES PAIN IS 0/10.
--- NOTE | 2020-03-10 22:42 | NUR ---
UPDATE CALLED DR. CONTEH FOR DOBHOFF TUBE PLACEMENT FOR PER TUBE MEDICATION. PROVIDE WOULD LIKE ORAL MEDICATION HELD FOR NOW UNTIL DOBHOFF IS PLACED TOMORROW MORNING. RECEIVED ORDERS FOR PIVOT 1.5 CONTINUOUS FEED WITH GOAL OF 30 ML/HR, TO BE STARTED TOMORROW. PT CONTINUES TO HAVE THICK BLOOD TINGED SECRETION'S THAT REQUIRE FREQUENT (EVERY 30 MINS) ORAL CARE TO KEEP AIRWAY CLEAR. PT IS ABLE TO MAKE NEEDS KNOWN. QUICKLY DESTATS WITH BIPAP OFF.
[2020-03-11 04:35] LABS: Hemoglobin 10.2 g/dL (13.5-17.5); Mean Corpuscular HGB 26.2 pg (26.0-34.0); Mean Corpuscular HGB Conc 31.9 g/dL (31.5-36.5); Mean Corpuscular Volume 82 fL (80-100); RDW Coefficient Variation 17.5 % (11.7-14.2); RDW Standard Deviation 51.8 fL (35.1-46.3); Red Blood Cell Count 3.89 M/mm3 (4.30-5.90); White Blood Cell Count 13.26 K/mm3 (4.00-11.30)
[2020-03-11 04:42] LABS: Platelet Count 50 K/mm3 (150-400)
[2020-03-11 04:51] LABS: Albumin, Blood 1.6 g/dL (3.4-5.0); Anion Gap 9 mmol/L (6-16); Blood Urea Nitrogen 127 mg/dL (8-24); Bun/Creatinine Ratio 35.9 (12.0-20.0); CO2, Blood 30 mmol/L (21-32); Calcium, Blood 8.3 mg/dL (8.5-10.1); Chloride, Blood 103 mmol/L (98-108); Creatinine, Blood 3.54 mg/dL (0.60-1.20); Glomerular Filtration Rate 18 (60-); Glucose, Blood 129 mg/dL (70-99); Magnesium, Blood 2.8 mg/dL (1.6-2.4); Phosphorus, Blood 6.7 mg/dL (2.5-4.9); Potassium, Blood 3.1 mmol/L (3.5-5.5); Sodium, Blood 142 mmol/L (136-145); Vancomycin, Random 15.2 ug/mL
[2020-03-11 05:13] LABS: BAND PERCENT MAN 5 % (0-8); BASOPHILS PERCENT MAN 0 % (0-2); EOSINOPHILS PERCENT MAN 0 % (0-6); LYMPHOCYTES ABSOLUTE MAN 0.39 K/mm3 (0.84-5.20); LYMPHOCYTES PERCENT MAN 3 % (21-46); MONOCYTES PERCENT MAN 0 % (4-13); NEUTROPHILS ABSOLUTE MAN 12.86 K/mm3 (1.96-9.15); SEG NEUTROPHILS PERCENT MAN 92 % (41-73); TOTAL CELLS COUNTED 100
--- NOTE | 2020-03-11 07:14 | NUR ---
SHIFT SUMMARY PT CONTINUES TO BE ON BIPAP ( 31/03, FIO2 40%), SPO2 > 90%. LEVOPHED AT 7 MCG/KG/MIN, MAP > 65, INFUSING VIA PICC TO [place] (DRESSING CHANGED DURING SHIFT). PT MORE A/O, ABLE TO STATE YEAR, PRESIDENT, EVENT, AND CORRECT LOCATION. PT ABLE TO HAVE CONVERSATIONS WHEN OFF BIPAP, PT GIVEN 30 MINUTE BREAK, TOLERATED WELL USING 7 L VIA NC. PT REQUIRED FREQUENT ORAL CARE DUE TO THICK RED TINGED SECRETION'S AND FREQUENT COUGH. SCD'S IN PLACE. DURING ADL'S PT COMPLAINS OF RIGHT LEG PAIN (10/10) DURING MOVEMENT. ONCE PTS MENTAL STATUS CLEARED HE STATES THE PAIN STARTED ONCE HE WAS ADMITTED TO THE HOSPITAL AND WAS NOT CHRONIC, RELAYED MESSAGE TO DAYSHIFT NURSE (NANDA) TO ASK FAMILY ABOUT THIS. PT STATES PAIN (0/10) WHEN HE IS NOT MOVING. PT ASKED FOR TV TO BE TURNED ON TO NEGR[employer] AND RESTING. TEMP CANALES IN PLACE, DRAINING TO GRAVITY, 400 MLS OF DARK HORACIO CLOUDY URINE OUTPUT DURING SHIFT. CALLED DR. CONTEH AND DR. ARMANDO FOR K OF 3.1, RECIEVED ORDERS FOR KCL [address] ARMANDO. PT STATED ON KCL.
--- NOTE | 2020-03-11 17:45 | NUR ---
SHIFT SUMMARY PT DOING WELL THIS SHIFT. PT INITIALLY ON BIPAP 31/03, FIO2 35% THIS AM. PT PLACED ON 15L HI FLOW NC AND HAS BEEN TITRATED DOWN TO 10L HI FLOW NC AT THIS TIME. PT HAS TOLERATED NC THROUGHOUT THE SHIFT WITHOUT NEED FOR BIPAP THROUGHOUT THE DAY. PT WITH COPIOUS AMOUNT OF THICK BLOODY ORAL SECRETIONS NEEDING FREQUENT DEEP ORAL SUCTION AND ORAL CARE. VITAL SIGNS HAVE REMAINED STABLE. PT HAS REMAINED ALERT AND ORIENTED THROUGHOUT THE DAY. PT SLOW TO RESPOND AT TIMES, BUT ANSWERS QUESTIONS APPROPRIATELY. PICC TO [place] C/D/I WITH NS INFUSING TKO AND LEVOPHED TITRATED DOWN TO 4 MCG/MIN AT THIS TIME. SAFESET FOR Q SHIFT CVP IN PLACE TO RED PICC PORT. PT TOLERATING PO WELL AT THIS TIME PER ST RECCOMENDATIONS. CANALES IN PLACE WITH YELLOW URINE OUTPUT NOTED. PT SPOUSE AT BEDSIDE THROUGHOUT MOST OF THE SHIFT. WILL CONTINUE TO MONITOR AND REPORT OFF TO ONCOMING RN.
--- NOTE | 2020-03-11 19:51 | NUR ---
ASSUMED CARE OF PT At 1915. REPORT RECEIVED AT BEDSIDE. PT PRESENTS IN BED. ALERT, PLEASANT AND COOPERATIVE WITH CARE AND ASSESSMENT. MAINTAINS > 90 PERCENT SATURATIONS ON 10 L/M HIGH FLOW CANNULA. IS ABLE TO MAKE HIS NEEDS KNOWN. LEVOPHED CONTINUES AT 4 MCG'S PER MINUTE. THIS TITRATED TO 3 MCG'S PER MINUTE. MAP MAINTAINS > 60. WILL CONTINUE TO ASSESS ABILITY TO TITRATE DRIP TO OFF. CVP DONE RESULTS 7. WILL REVIEW CHART AND PLAN OF CARE FOR THIS PT.
--- NOTE | 2020-03-11 22:29 | NUR ---
PT WAS ABLE TO SWALLOW PO MEDICATIONS THAT WERE CRUSHED IN APPLESAUCE PER SWALLOW EVAL RECOMENDATIONS. SAFE SWALLOW TECHNIQUE TAUGHT TO PT WITH CHIN TUCK WITH EACH SWALLOW. PT ABLE TO REDEMO TECHNIQUE WITH GOOD RESULTS. ORAL CARE DONE NOTING PT'S ORAL MUCOSA VERY DRY. ORAL MOISTURIZER APPLIED. PT CURRENTLY ON BIPAP AND MAINTAINING SATURATIONS > 90 PERCENT. LEVOPHED CONTINUES AT 3 MCG'S/MIN. WILL CONTINUE TO MONITOR PT.
--- NOTE | 2020-03-11 23:29 | NUR ---
BIPAP: 16/12 FIO2 35%
--- NOTE | 2020-03-12 03:18 | NUR ---
PT MEDICATED WITH 650 MG TYLENOL FOR GENERAL BACK AND LEG DISCOMFORT WELL FOR LOW GRADE FEVER. MED CRUSHED IN APPLESAUCE. PT DEMONSTRATED SAFE SWALLOW TECHNIQUE WITH CHIN TUCK. OBSERVED PT DO SO WITHOUT PROMPTING. WILL REIFORCE TEACHING. LEVOPHED HAS BEEN TURNED DOWN TO 2 MCG'S/MIN. PT'S BLOOD PRESSURES VERY SUSEPTABLE TO PT'S POSITIONING. ORAL CARE DONE, AND DEEPER SUCTIONING DONE WITH PROMPTING OF COUGH. SMALL AMOUNT OF SPUTUM RETURNED. PT STATES THAT THE SUCTIONING HAS BEEN VERY HELPFUL WITH HIS BREATHING. PT CURRENTLY BACK TO BIPAP.
[2020-03-12 04:26] LABS: BASOPHILS ABSOLUTE AUTO 0.02 K/mm3 (0.00-0.23); BASOPHILS PERCENT AUTO 0 % (0-2); EOSINOPHILS ABSOLUTE AUTO 0.14 K/mm3 (0.00-0.68); EOSINOPHILS PERCENT AUTO 1 % (0-6); Hematocrit 30.2 % (37.0-53.0); Hemoglobin 9.6 g/dL (13.5-17.5); IMMATURE GRAN ABSOLUTE AUTO 0.07 K/mm3 (0.00-0.10); IMMATURE GRAN PERCENT AUTO 1 % (0-1); LYMPHOCYTES ABSOLUTE AUTO 0.17 K/mm3 (0.84-5.20); LYMPHOCYTES PERCENT AUTO 2 % (21-46); MONOCYTES ABSOLUTE AUTO 0.11 K/mm3 (0.16-1.47); MONOCYTES PERCENT AUTO 1 % (4-13); Mean Corpuscular HGB 26.1 pg (26.0-34.0); Mean Corpuscular HGB Conc 31.8 g/dL (31.5-36.5); Mean Corpuscular Volume 82 fL (80-100); NEUTROPHILS ABSOLUTE AUTO 10.16 K/mm3 (1.96-9.15); NEUTROPHILS PERCENT AUTO 95 % (41-73); RDW Coefficient Variation 17.4 % (11.7-14.2); RDW Standard Deviation 51.6 fL (35.1-46.3); Red Blood Cell Count 3.68 M/mm3 (4.30-5.90); White Blood Cell Count 10.67 K/mm3 (4.00-11.30)
[2020-03-12 04:36] LABS: Platelet Count 45 K/mm3 (150-400)
[2020-03-12 04:41] LABS: Albumin, Blood 1.3 g/dL (3.4-5.0); Anion Gap 10 mmol/L (6-16); Blood Urea Nitrogen 139 mg/dL (8-24); Bun/Creatinine Ratio 34.8 (12.0-20.0); CO2, Blood 27 mmol/L (21-32); Calcium, Blood 7.8 mg/dL (8.5-10.1); Chloride, Blood 105 mmol/L (98-108); Creatinine, Blood 3.99 mg/dL (0.60-1.20); Glomerular Filtration Rate 16 (60-); Glucose, Blood 129 mg/dL (70-99); Magnesium, Blood 2.9 mg/dL (1.6-2.4); Phosphorus, Blood 5.8 mg/dL (2.5-4.9); Sodium, Blood 142 mmol/L (136-145)
--- NOTE | 2020-03-12 06:30 | NUR ---
PT HAS BEEN ABLE TO WEAR BIPAP MASK MOST OF THE NIGHT. CURRENTLY BACK TO HIGH FLOW 02 CANNULA AT 8 L/M. SATURATIONS REMAIN > 90 PERCENT. HAVE TITRATED LEVOPHED DOWN TO OFF. BLOOD PRESSURES REMAIN WITH SBP NEAR 100. WILL CONTINUE TO MONITOR PT, AND WILL REPORT OFF TO ONCOMING RN.
--- NOTE | 2020-03-12 08:00 | NUR ---
ASSUMED CARE PT IS AWAKE, ALERT AND ORIENTED X 4 THIS MORNING, ALTHOUGH, SLOW TO RESPOND AND APPEARS TO HAVE GENERALIZED WEAKNESS. PT IS IN A FIB/FLUTTE RHYTHM WITH A CONTROLLED RATE IN THE 60-70s. STABLE BPs, MAP > 60, LEVOPHED IS ON STANDBY. HE HAS A PATENT CANALES, DRAINING URINE, AND HAS SCDs IN PLACE. HE IS ON 8L HFNC WITH HUMIDITY, SATing 91-97%. BED LOW AND LOCKED.
--- NOTE | 2020-03-12 08:45 | NUR ---
BREAKFAST/UPDATE PT UPRIGHT IN FOWLERS FOR BREAKFAST, UTILIZING CHIN-TUCK WHEN SWALLOWING. NO CHANGE IN VOICE, SPO2 MAINTAINED > 90%. GOING SLOW, OCCASSIONAL COUGHING, AND SUCTIONING UP OF A MODERATE AMOUNT OF SPUTUM (PALE GREEN, RED TINGED, THICK). VITALS REMAIN STABLE. WILL CONTINUE TO MONITOR.
--- NOTE | 2020-03-12 09:36 | NUR ---
UPDATE DR. ARMANDO CONCERNED ABOUT POTENTIAL PERICARDIAL EFFUSION, ORDERED A URGENT ECHO. DR. ZAMUDIO AWARE, AND SHE TOLD ME TO HOLD TOPROL XL THIS AM UNTIL WE SEE THE RESULTS OF ECHO. PT IS HEMODYNAMICALLY STABLE, CURRENTLY. HOWEVER, AROUND THE PMI THIS RN CAN HEAR ADVENTITIOUS HEART SOUNDS, WHICH SOUNDS LIKE FLUID MOVEMENT. WILL CONTINUE TO MONITOR.
--- NOTE | 2020-03-12 11:14 | NUR ---
UPDATE DIRECTOR SEMICONDUCTOR REPORTED NO ACUTE PERICARDIAL EFFUSION THAT HE NOTED, WILL WAIT FOR OFFICIAL REPORT. PT IS HEMODYNAMICALLY STABLE, OFF LEVO. DR. ZAMUDIO WANTS US TO START HIM BACK ON TOPROL XL AT 12.5 MG AT LUNCH TIME TODAY AND BEDTIME TONIGHT; IF HE MAINTAINS ADEQUATE BP (MAP > 60, SBP > 100) THAN WE CAN CONTINUE HIS ORIGINAL DOSE OF 25 MG BID TOPROL XL TOMORROW, 03/13/20. ST HAS UPGRADED HIS DIETARY PRECAUTIONS TO NECTAR, BY SPOON - BUT EVERYTHING ELSE REMAINS THE SAME. RT HAS DECREASED HIS OXYGEN TO 6L ON THE HFNC. SPO2 > 90%. WILL CONTINUE TO MONITOR.
--- NOTE | 2020-03-12 12:20 | NUR ---
UPDATE PT CONTINUES TO NAP/SLEEP. AFTER: EATING BREAKFAST, REPOSITIONING, CHANGING HIS ONEIL, HAVING A ECHO DONE, ETC... PT HAS BECOME QUITE TIRED. CURRENTLY LETTING HIM SLEEP/REST A BIT LONGER BEFORE WAKING HIM UP, PUTTING HIM IN FOWLERS, EATING LUNCH, CHECKING A BLOOD SUGAR, AND GIVING HIM HIS MEDICATION. PT IS STABLE HEMODYNAMICALLY, MAP > 60, HR IN 70s. SPO2 91% ON 6L HFNC (W/ HUMIDITY). WILL CONTINUE TO MONITOR.
--- NOTE | 2020-03-12 12:40 | NUR ---
Echocardiogram completed.
[2020-03-12 14:34] LABS: International Normalized Ratio 1.24; Prothrombin Time Results 13.1 Sec (9.7-11.5)
--- NOTE | 2020-03-12 15:33 | NUR ---
UPDATE/WEIGHT/CVP PT NOT HAVING A BIG APPETITE, DID NOT EAT MUCH FOR LUNCH - BESIDES A FEW BITES OF APPLESAUCE THAT HAD HIS TOPROL XL IN IT. BP HAS REMAINED ADEQUATE, IN FACT SBP WAS IN THE 140s. PT REPORTS BEING VERY TIRED, AFTER WORKING WITH PT/OT, EATING APPLE SAUCE, AND VISITING WITH SISTER. PT NOW NAPPING, AGAIN. INCORRECT WEIGHT THE PT CAME IN WITH A WEIGHT OF 102.4 KG, AND THEN ON 03/10 - THE DAILY WEIGHT WAS CHARTED 54.7 KG; WHICH CLEARLY WAS INCORRECT AND POSSIBLY DUE TO SOMEONE ACCIDENTALLY ZERO-ING THE BED WITH THE PT IN IT. BUT THAT IS UNKNOWN. I TOLD PHARMACY ABOUT THIS ERROR, SO THEY COULD CHANGE THE ARANESP TO THE CORRECT DOSAGE. DANELLE IS AWARE AND MADE THAT CHANGE. CVP PERFORMED A CVP ON THE PT VIA THE RED PORT OF THE PICC LINE, USING THE PICC ADAPTOR CABLE. THE WAVEFORM WASN'T THE MOST CONSISTENT, THE PT WAS IN AFLUTTER - BUT CVP SEEMED TO BE BETWEEN 6-10, ~8. THIS WAS MEASURED AT THE PHLEBOSTATIC AXIS, AND A DANELLE WAS MADE ON THE PT'S SKIN FOR FUTURE LEVELS IF NEEDED.
--- NOTE | 2020-03-12 16:35 | NUR ---
UPDATE PT IS NAPPING, AND NOT INTERESTED IN EATING AT THIS MOMENT. WILL DELAY DINNER, AND CBG - FOR TIME BEING. PT HAS STABLE HEMODYNAMICS, AND SP02 IS 91%+. WILL CONTINUE TO MONITOR. BED LOW AND LOCKED. HOB = 30 degrees. CALL LIGHT WITHIN REACH, WELL YANKAUR.
--- NOTE | 2020-03-12 19:20 | NUR ---
ASSUMED CARE OF PT AT 1914. REPORT RECEIVED. PT PRESENTS IN BED. WEARING BIPAP 03/21 WITH FIO2 AT 40 PERCENT. THIS IS KEEPING PT'S O2 SATURATIONS > 90 PERCENT. PT INDICATES THAT HE MAY NEED TO ATTEMPT BM TONIGHT. WILL REVIEW CHART AND PLAN OF CARE FOR THIS PT.
--- NOTE | 2020-03-12 19:35 | NUR ---
SHIFT SUMMARY PT OVERALL HAD A GOOD DAY. PT ON BIPAP FOR SUPPORT WHILE SLEEPING - PT NEVER DESATURATED BELOW 88%, AND REMAINED AT ABOUT 91-94% MAJORITY OF THE DAY. HE WAS LOW 6L HFNC WITH HUMIDITY TODAY. STABLE VITALS ALL DAY, AFLUTTER RATE CONTROLLED IN THE 60-70s, WITH STABLE BP (MAP > 65, SBP > 100). AFEBRILE. SWELLING PRESENT IN THE LOWER EXTREMTIES, HIPS/UPPER THIGHS, AND GENERALIZED. PT HAD 250 ML OF URINE OUTPUT, HORACIO, SEDIMENT PRESENT. ABOUT +415 ML OF IVF INFUSED. PT WORKED WITH PHYSICAL THERAPY AND OT TODAY, AND TOLERATED IT WELL, DESPITE NOT BEING ABLE TO DO TOO MUCH, IS STILL WEAK AND TIRED. HE HAD SOME INTAKE FOR BREAKFAST, NOT MUCH FOR LUNCH AND NOTHING FOR DINNER. HE STATES HE IS TOO TIRED AND NOT HUNGRY. HE WAS UPGRADED TO NECTAR THICK LIQUIDS TODAY, EVERYTHING ELSE REMAINS THE SAME PRECUATIONS. HE DID WELL WITH SWALLOWING WHEN HE DID EAT BREAKFAST, BUT WITH BEING REMINDED TO TUCK HIS CHIN. PERFORMED A CVP WITH PICC LINE, ~8. DR. TAFOYA ORDERED LABS, BUT HAS NOT SEEN PATIENT YET. ELLI RAPP AND KATHARINE EVALUATED PT TODAY. PERICARDIAL EFFUSION WAS RULED OUT, & EJECTION FRACTION IMPROVED FROM ECHO A FEW DAYS AGO. OVERALL PT APPEARS TO BE IMPROVING, BUT STILL IS WEAK AND NEEDS REHABILITATION. FLUID STILL HEARD IN THE LEFT LOWER LOBE, AND IN THE ANTERIOR/INFERIOR PORTION OF THE HEART. LOTS OF ORAL CARE WAS DONE TODAY, DUE TO THE ULCERATIONS, SECRETIONS, AND FISSURES/DRYNESS. BED LOW AND LOCKED. CALL LIGHT WITHIN REACH.
--- NOTE | 2020-03-13 00:30 | NUR ---
PT HAS BEEN ABLE TO USE [place]UR TO SELF SUCTION HIMSELF AND THEN IS ABLE TO PLACE BIPAP MASK BACK IN PLACE APPROPRIATELY. HAVE CONTINUED WORKING WITH PT ON SAFE SWALLOW TECHNIQUE WHEN HE TAKES HIS MEDICATIONS AND DRINKS OF THICKENED WATER. PT DID HAVE ON COUGH EPISODE WITH NECTAR THICK WATER. WILL THICKEN FLUIDS MORE CLOSER TO HONEY THICK FOR IMPROVED SWALLOW CONTROL FOR PT. DID MEDICATE PT WITH TYLENOL AT HS FOR GENERAL DISCOMFORT. PT STATES THIS IS HELPFUL. WILL CONTINUE TO MONITOR PT.
[2020-03-13 04:59] LABS: BASOPHILS ABSOLUTE AUTO 0.01 K/mm3 (0.00-0.23); BASOPHILS PERCENT AUTO 0 % (0-2); EOSINOPHILS ABSOLUTE AUTO 0.15 K/mm3 (0.00-0.68); EOSINOPHILS PERCENT AUTO 2 % (0-6); Hematocrit 28.4 % (37.0-53.0); Hemoglobin 9.1 g/dL (13.5-17.5); IMMATURE GRAN ABSOLUTE AUTO 0.06 K/mm3 (0.00-0.10); IMMATURE GRAN PERCENT AUTO 1 % (0-1); LYMPHOCYTES ABSOLUTE AUTO 0.21 K/mm3 (0.84-5.20); LYMPHOCYTES PERCENT AUTO 3 % (21-46); MONOCYTES ABSOLUTE AUTO 0.16 K/mm3 (0.16-1.47); MONOCYTES PERCENT AUTO 2 % (4-13); Mean Corpuscular HGB 26.1 pg (26.0-34.0); Mean Corpuscular Volume 81 fL (80-100); NEUTROPHILS ABSOLUTE AUTO 7.62 K/mm3 (1.96-9.15); NEUTROPHILS PERCENT AUTO 93 % (41-73); Platelet Count 56 K/mm3 (150-400); RDW Coefficient Variation 17.4 % (11.7-14.2); RDW Standard Deviation 50.9 fL (35.1-46.3); Red Blood Cell Count 3.49 M/mm3 (4.30-5.90); White Blood Cell Count 8.21 K/mm3 (4.00-11.30)
[2020-03-13 05:32] LABS: Albumin, Blood 1.2 g/dL (3.4-5.0); Anion Gap 10 mmol/L (6-16); Blood Urea Nitrogen 161 mg/dL (8-24); Bun/Creatinine Ratio 34.4 (12.0-20.0); CO2, Blood 26 mmol/L (21-32); Calcium, Blood 7.6 mg/dL (8.5-10.1); Chloride, Blood 107 mmol/L (98-108); Creatinine, Blood 4.68 mg/dL (0.60-1.20); Glomerular Filtration Rate 13 (60-); Glucose, Blood 120 mg/dL (70-99); Phosphorus, Blood 6.4 mg/dL (2.5-4.9); Sodium, Blood 143 mmol/L (136-145); Vancomycin, Random 18.4 ug/mL
--- NOTE | 2020-03-13 06:30 | NUR ---
PT CURRENTLY USIN OXIMYZER AT 6 L/M. MAINTAINS OXYGEN SATURATIONS > 90 PERCENT. HAS BEEN INCONTINENT TO STOOL TWICE THIS NIGHT. IS ABLE TO ASSIST SOME WITH TURNS IN BED. WILL CONTINUE TO MONITOR PT, AND WILL REPORT OFF TO ONCOMING RN.
--- NOTE | 2020-03-13 08:10 | NUR ---
ASSUMED CARE RECEIEVED REPORT FROM JANETH ANGEL. PT IS SITTING UP IN FOWLERS, ON 6L HFNC WITH HUMIDITY. SPO2 IS ~93%. PT IS IN AFLUTTER, STABLE RATE IN THE 70s. STABLE BP (MAP > 65, SBP > 100). SCDs IN PLACE. CANALES PATENT AND DRAINING HORACIO URINE. REPLACING POTASSIUM PER DR. ARMANDO. PT IS ALERT AND ORIENTED X 4, BUT IS SLOW TO RESPOND AND HAS GENERALIZED WEAKNESS. STATES HIS PAIN/SORENESS HAS IMPROVED. HE IS ALSO MOVING A LITTLE BETTER ON HIS OWN THIS MORNING. ABLE TO SUCTION HIMSELF READILY, AND USING HIS ARMS MORE - ABLE TO DO MORE OF THE WORK WITH FEEDING. BED LOW AND LOCKED. CALL LIGHT WITHIN REACH.
--- NOTE | 2020-03-13 09:30 | NUR ---
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 PT STATES THE LEG ACTUALLY LOOKS LESS SWOLLEN THAN USUAL. BUT THE RIGHT LOWER LEG IS SIFNIFICANTLY WORSE THAN THE LEFT LOWER LEG WHICH HAS NO MAJOR ENGORGED VEINS, AND ONLY MINIMAL SWELLING. AFUATRATE AWARE - ORDERING VENOUS DUPLEX STUDY. PT HAS BEEN OFF BLOOD THINNER SINCE ADMISSION HE WAS HAVING HEMOPTYSIS, WHICH HAS DECREASED/IMPROVED T/O HIS STAY HERE, TODAY ONLY MINIMAL BLOOD IS COUGHED UP. MAY START PT BACK ON HIS ANTICOAGULANT MEDICATION TODAY. PT IS COMPLAINING OF CALF TENDERNESS THIS MORNING. HE IS ALSO COMPLAINING OF MUSCLE ACHES ALL OVER, MAINLY IN HIS CALVES, THIGHS, AND UPPER ARM MUSCLES (ON BOTH SIDES). AT REST HIS PAIN ISN'T SEVERE, LIKE A 5-6/10 OF ACHES, BUT WHEN MANIPULATED/PALPATED/TOUCHED IT CAN INCREASED TO A 10/10 PAIN. PT HAD CRAMPING PAIN YESTERDAY, PRIMARILY IN HIS RIGHT SIDE, AND WAS COMPLAINING OF SORENESS. IT MAY BE INCREASING IN SEVERITY TODAY. PT GAVE 25g OF ALBUMIN, AND 10 MG OF IV LASIX. PT HAD 300 ML OF HORACIO URINE THIS MORNING PRIOR TO THE LASIX ADMINISTRATION. URINE HAD LOTS OF SEDIMENT IN TUBING/CATHETER/CANALES BAG.
[2020-03-13 10:43] LABS: Troponin I 0.216 ng/mL (0.000-0.040)
--- NOTE | 2020-03-13 17:30 | NUR ---
SHIFT SUMMARY AT [id number] PT WAS TRANSFERRED TO THE RECLINER, VIA THE CELING LIFT. HE HAS BEEN SITTING UP 90degrees WITH HIS FEET UP, SATing 91-97% ON 4L NC WITH HUMIDITY - DEPENDING ON HOW ALERT HE IS. HE DENIES PAIN, AND HE IS MAINTAINING GOOD O2 SATS AND AN ADEQUATE RR - AFTER THE FENTANYL ADMINISTRATION AT 1515 - BUT HE IS DROWSY/SLEEPY, IN AND OUT OF SLEEP. HIS SISTER HAS BEEN VISITING WITH HIM SINCE ABOUT 1630, AND HE HAS BEEN SLEEPING MOST OF THE TIME AND ACTING A LITTLE SILLY (WHEN AWAKE); GARBLED SPEECH USUAL. BUT CONTINUES TO BE ORIENTED X 4 AND MAKING APPROPRIATE STATEMENTS. NO PT, ST OR OT TODAY. FOR BREAKFAST HE WAS ABLE TO DO MOST OF THE WORK, BUT AFTER REPOSITIONING, BREAKFAST, HIS VENOUS DUPLEX STUDY, AND OTHER ACTIVITIES HE HAS BEEN QUITE TIRED AND WANTING TO NAP. NOT HAVING AN APPETITE FOR LUNCH, BUT SAYS HE IS WANTING TO HAVE DINNER - SO WHEN HE IS ABLE TO MAINTAIN HIS ALERTNESS - HE CAN EAT. HIS FINE MOTOR SKILLS IN HIS HANDS/UPPER EXTREMETIES IS CLEARLY IMPROVING, AND HIS STRENGTH WELL. HIS LOWER EXTREMETIES ARE STILL VERY WEAK, AND CAN BE QUITE PAINFUL WHEN DOING ROM - ESPECIALLY HIS RLE, WHICH HAS ENGORGED VEINS AND IS SIGNIFICANTLY BIGGER THAN HIS LLE- PT STATES THIS ISN'T NEW AND IN FACT LOOKS SMALLER THAN USUAL. HE WAS GIVEN ALBUMIN AND LASIX TODAY - AND HIS URINE OUTPUT HAS INCREASED, AND HIS SWELLING IS GOING DOWN MORE AND MORE. REDNESS IN HIS PERIANAL/COCCYX AREA, LOTION APPLIED. COMPLETE BED BATH PERFORMED TODAY. MEPILEX APPLIED TO SKIN TEAR ON RIGHT HIP/BUTTUCK. NO ISSUES WITH VITAL SIGNS TODAY. AFLUTTER, CONTROLLED RATE (60-70s). MAP > 65. AFEBRILE. HE IS STILL PRODUCING SPUTUM, BUT LESS AND LESS. HIS COUGH HAS BEEN STRONGER. I GOT HIM A FLUTTER VALVE AND INCENTIVE SPIROMETER. BED IS LOW AND LOCKED. CALL LIGHT WITHIN REACH.
--- NOTE | 2020-03-13 22:33 | NUR ---
UPDATE: PT REQUIRES FREQUENT SUCTION. PT PROVIED OWN ORAL SUCTION WITH MARCOS. THICK YELLOW/RED TINGED SECRETIONS NOTED. PT PLACED ON CPAP, SPO2 AT 92%
[2020-03-14 04:12] LABS: BASOPHILS PERCENT AUTO 0 % (0-2); EOSINOPHILS PERCENT AUTO 3 % (0-6); Hematocrit 33.4 % (37.0-53.0); Hemoglobin 10.7 g/dL (13.5-17.5); IMMATURE GRAN ABSOLUTE AUTO 0.04 K/mm3 (0.00-0.10); IMMATURE GRAN PERCENT AUTO 1 % (0-1); LYMPHOCYTES ABSOLUTE AUTO 0.14 K/mm3 (0.84-5.20); LYMPHOCYTES PERCENT AUTO 2 % (21-46); MONOCYTES ABSOLUTE AUTO 0.18 K/mm3 (0.16-1.47); MONOCYTES PERCENT AUTO 3 % (4-13); Mean Corpuscular HGB 26.2 pg (26.0-34.0); Mean Corpuscular Volume 82 fL (80-100); NEUTROPHILS ABSOLUTE AUTO 6.24 K/mm3 (1.96-9.15); NEUTROPHILS PERCENT AUTO 92 % (41-73); Platelet Count 69 K/mm3 (150-400); RDW Coefficient Variation 17.4 % (11.7-14.2); RDW Standard Deviation 51.5 fL (35.1-46.3); Red Blood Cell Count 4.09 M/mm3 (4.30-5.90)
[2020-03-14 04:29] LABS: Magnesium, Blood 3.1 mg/dL (1.6-2.4)
[2020-03-14 04:33] LABS: Albumin, Blood 1.5 g/dL (3.4-5.0); Anion Gap 10 mmol/L (6-16); Blood Urea Nitrogen 173 mg/dL (8-24); CO2, Blood 26 mmol/L (21-32); Calcium, Blood 8.1 mg/dL (8.5-10.1); Chloride, Blood 108 mmol/L (98-108); Glomerular Filtration Rate 13 (60-); Glucose, Blood 208 mg/dL (70-99); Phosphorus, Blood 6.3 mg/dL (2.5-4.9); Potassium, Blood 3.2 mmol/L (3.5-5.5); Sodium, Blood 144 mmol/L (136-145)
--- NOTE | 2020-03-14 06:31 | NUR ---
CALLED SOFIA REGARDING ELEVATED BP AND DUPLICATE POTASSIUM ORDER TO CLARIFY. WAITING FOR CALL TO BE RETURED.
--- NOTE | 2020-03-14 06:45 | NUR ---
SHIFT SUMMARY: NO SIGNIFICANT CHANGES T/O SHIFT. PT USED CPAP MACHINE T/O NIGHT, TAKING BREAKS AND PLACING HIM ON 3L OF 02 VIA NC, SPO2 MAINTAINING ABOVE 90% DR. BLACK GIVEN ORDER TO GIVE METROPOLOL MORNING DOSE NOW AND PRN MEDS GIVEN. PT HAS BEEN IN A-FLUTTER T/O SHIFT. PT HAS DENIED PAIN T/O SHIFT. CANALES PATENT DRAINING TO GRAVITY DRAK HORACIO IN COLOR, 900ML OUTPUT. WILL CONTINUE TO MONITOR PT UNTIL REPORT IS GIVEN TO ONCOMING SHIFT.
--- NOTE | 2020-03-14 07:32 | NUR ---
CALLED DR. ARMANDO TO CLARIFY K+ ORDER. WILL GIVE 20MEQ OF K+ , WAIT 2HOURS THEN RECHECK K+ , CALL PRABHA WITH RESULTS BEFORE GIVING ADMINISTERING ANYMORE. REPORT GIVEN TO AVERY FOWLER
--- NOTE | 2020-03-14 07:56 | NUR ---
ASSUMED CARE RECEIVED REPORT FROM JANETH SANDOVAL. PT IS SITTING UP IN BED EATING BREAKFAST WITH FIRE PREVENTION BUREAU CAPTAIN. ALERT ORIENTED X 4, AND CURRENTLY DENYING DISCOMFORT/PAIN/SOB. PT IS IN AFLUTTER, WITH A CONTROLLED RATE, AND A STABLE (MILDLY HYPERTENSIVE) BP. SPO2 93% ON 3L NC W/ HUMIDITY. SCDs IN PLACE. PATENT CANALES CATH DRAINING HORACIO URINE. BED LOW AND LOCKED. CALL LIGHT WITHIN REACH.
[2020-03-14 08:07] LABS: COMPLEMENT C3, SERUM 91 mg/dL (82-167); COMPLEMENT C4, SERUM 8 mg/dL (12-38)
--- NOTE | 2020-03-14 11:09 | NUR ---
UPDATE DR. BLACK HAD ORDERED 40 MEQ OF KCL THIS MORNING, BUT DR. ARMANDO TOLD THE NOC RN TO HOLD THE 2ND BAG OF 20MEQ KCL, AND TO HAVE THE THIS RN CHECK POTASSIUM AT 1045, AND TO REPORT THE RESULT TO HIM JUNIOR. SO THE BAG WAS HELD THIS MORNING. REPORTED K+ OF 3.[address] ARMANDO, PT IS NOT TO RECEIVE THIS MORNING'S SECOND BAG OF KCL (20MEQ).
--- NOTE | 2020-03-14 12:24 | NUR ---
Clinical Visit: Pt is oriented, appears fatigued. Difficulty understanding speech, as he is slurring slightly and has weak voice carry: His voice comes out as a whisper. He reports he is feeling "much better" than when he came into the hospital. Discussed quality of life. He is a life-long nasreen. Discussed this for a little while. His goals are to return to his normal state of health and resume his hobbies. He values life: He would accept chest compressions and intubation if this is what he needs to do to be well again. He lives with his and his children live here locally. He feels very supported by their love and wishes for wellness following his hospital admission. He likes his daily visitor. He reports that it is difficult to be in the hospital by himself, without family support, but that he also values the time spent in recovery alone. He states, "I don't want anything to interrupt my treatments here, since I'm doing so much better." He reports severe pain on admission to hospital; this morning he is reporting mild pain. He is encouraged by this. He is not experiencing anxiety, shortness of breath is moderate. He stops every 3-4 words to catch his breath. Spoke to nurse. Carly reports that pt is profoundly weak. He has gotten out of bed with a lift yesterday and was able to sit for about 45 min in a chair. Carly is concerned that the pt would like to return home and not go to a SNF to get stronger. He states that with pt's multiple problems, complete recovery may be difficult. Pt's kidneys are worsening, although his EF has improved during admission. Carly will contact palliative care if the pt's comes to the hospital today. Plan on follow up visit to pt and to discuss advanced care planning further. It may be helpful for family member to be present during this discussion. Pt high risk for readmission or sudden with his extensive comorbidities. Will allow pt to rest, as this conversation seemed to tax him heavily on effort. Requesting call back to room if family comes to visit him today during visiting hours between 2pm-6pm.
--- NOTE | 2020-03-14 16:34 | NUR ---
Clinical Visit: Pt sitting up in bed. His hair is combed, his face is brighter. His is here for visiting hours. His pain is at an acceptable level. Confirmed full code status with his present. Explained risk of fractured or broken ribs for chest compressions and intubation with risk of infection. He states that he accepts those risks because he wants to live. is supportive. He has an advance directive on file that was filled out at the [facility]. No other concerns.
--- NOTE | 2020-03-14 18:43 | NUR ---
SHIFT SUMMARY NO MAJOR EVENTS T/O DAY. PT CONTINUES TO STRUGGLE WITH WEAKNESS (PRIMARILY IN HIS LOWER EXTREMITIES, AND ESPECIALLY HAVING DIFFICULTY WITH ROM), SWALLOWING CAN BE TOUGH DUE TO THE ULCERATIONS/DRYNESS OF HIS THROAT/TOUNGE, AND ALSO FATIGUE IN GENERAL. THE PT IS VERY SLEEPY A GOOD CHUNK OF THE DAY; HE WEARS 3L NC WITH HUMIDITY AND SATs 91-98% DEPENDING ON HIS ACTIVITY. HE CAN MAINTAIN ALERTNESS, AND IS ORIENTED X 4 BUT LATE MORNING, AND LATE AFTERNOON/EARLY EVENING PT BEGINS TO GET TIRED, TAKES A NAP, AND IS IN AND OUT OF SLEEP FOR THE MOST PART. HIS VISITED HIM TODAY, HE WAS ABLE TO STAY AWAKE AND CHAT WITH HER FOR ABOUT AN HOUR, BEFORE NEEDING TO SLEEP AGAIN. PT FEEDING HIMSELF WHEN HE IS AWAKE AND HUNGRY, DIDN'T WANT DINNER TONIGHT HE WAS TOO TIRED. BUT PT HAS HAD NECTAR THICK JUICES AND WATER T/O THE DAY. ORAL CARE DONE, HIS MOUTH IS HEALING AND HAS IMPROVED SINCE TWO DAYS AGO. HE WAS TOO TIRED TO TRANSFER TO THE CHAIR TODAY. PALLIATIVE CARE DISCUSSED CODE STATUS AND ADVANCED CARE PLANNING WITH AND PT TODAY. PT IS TO REMAIN A FULL CODE. EVERYONE IS ON THE SAME PAGE. BED IS LOW AND LOCKED. CALL LIGHT WITHIN REACH.
--- NOTE | 2020-03-14 19:00 | NUR ---
ASSUMED CARE NOTE: ASSUMED CARE OF PT AT 1900, RECEVIED REPORT FROM AVERY FOWLER. PT IS ALERT AND ORIENTED X4, ABLE TO ANSWER QUESTIONS APPROPRIATLY. VOICE IS FAINT, STRUGGLES TO MAKE FULL SENTENCES, STS IT IS DUE TO HIS DRY MOUTH. ORAL CARE PROVIDED. PT IS ON 3L OF 02 VIA NC, WITH HUMITIFIER, SPO2 ABOVE 90% PT IN AFLUTTER, HR 60-70'S, OCCCASIONAL PACER SPIKES. PT SITTING UP IN BED, REQUESTING SNACK. BOWEL TONES ACTIVE IN ALL QUADRANTS. CANALES PATENT, DRAINING TO GRAVITY. WILL CONTINUE TO MONITOR PT T/O.
[2020-03-15 03:53] LABS: BASOPHILS ABSOLUTE AUTO 0.01 K/mm3 (0.00-0.23); BASOPHILS PERCENT AUTO 0 % (0-2); EOSINOPHILS ABSOLUTE AUTO 0.28 K/mm3 (0.00-0.68); EOSINOPHILS PERCENT AUTO 4 % (0-6); Hematocrit 31.9 % (37.0-53.0); Hemoglobin 9.9 g/dL (13.5-17.5); IMMATURE GRAN ABSOLUTE AUTO 0.07 K/mm3 (0.00-0.10); IMMATURE GRAN PERCENT AUTO 1 % (0-1); LYMPHOCYTES PERCENT AUTO 3 % (21-46); MONOCYTES ABSOLUTE AUTO 0.24 K/mm3 (0.16-1.47); MONOCYTES PERCENT AUTO 3 % (4-13); Mean Corpuscular HGB 25.8 pg (26.0-34.0); Mean Corpuscular Volume 83 fL (80-100); NEUTROPHILS PERCENT AUTO 89 % (41-73); Platelet Count 96 K/mm3 (150-400); RDW Coefficient Variation 17.5 % (11.7-14.2); RDW Standard Deviation 52.5 fL (35.1-46.3); Red Blood Cell Count 3.84 M/mm3 (4.30-5.90)
[2020-03-15 04:11] LABS: Magnesium, Blood 3.1 mg/dL (1.6-2.4)
[2020-03-15 04:16] LABS: Albumin, Blood 1.4 g/dL (3.4-5.0); Anion Gap 9 mmol/L (6-16); Blood Urea Nitrogen 170 mg/dL (8-24); Bun/Creatinine Ratio 40.1 (12.0-20.0); CO2, Blood 28 mmol/L (21-32); Calcium, Blood 7.8 mg/dL (8.5-10.1); Chloride, Blood 110 mmol/L (98-108); Creatinine, Blood 4.24 mg/dL (0.60-1.20); Glomerular Filtration Rate 15 (60-); Glucose, Blood 253 mg/dL (70-99); Phosphorus, Blood 5.3 mg/dL (2.5-4.9); Potassium, Blood 3.2 mmol/L (3.5-5.5); Sodium, Blood 147 mmol/L (136-145); Vancomycin, Random 21.7 ug/mL
--- NOTE | 2020-03-15 06:31 | NUR ---
SHIFT SUMMARY: NO SIGNIFICANT CHANGES T/O SHIFT. PT REMAINS ON 3L OF HUMITIFIED 02 VIA NC. PT IS HAVING LESS SECRETIONS THAN IN THE PAST FEW DAYS. PT SELF SUCTIONS AT BEDSIDE. PT HAS BEEN AWAKE FOR MOST OF THE NIGHT, REQUESTING SIPS OF WATER, PT GIVEN A SIPS OF NECTAR THICK WATER, AND CRANBERRY NECTAR THICK JUICE. PT HAS REQUESTED ORAL CARE Q2HRS. PT MOUTH IS VERY DRY , ORAL MOISTERIZER APPLIED. PT HAS BEEN IN A-FLUTTER WITH HR IN THE 60-70'S. ONE DOSE OF HYPERTENSIVE PRN MEDS GIVEN FOR SPB ABOVE 160. ACTIVE BOWEL TONES HEARD IN ALL QUADRANTS. ATTENDS IN PLACE, NO BM THIS SHIFT. CANALES PATENT AND DRAINING TO GRAVITY. PT PLACED IN CHAIR, USING CELING LIFT, FOR BREAKFEST. PT IN GOOD SPIRITS AND MOTIVATED TO EAT BREAKFEST. WILL CONTINUE TO MONITOR PT UNTIL REPORT IS GIVEN TO ONCOMING SHIFT.
--- NOTE | 2020-03-15 08:28 | NUR ---
ASSESSMENT- PT AWAKE, ALERT, COOPERATIVE. SPEECH SLOW BUT UNDERSTANDABLE. ASPIRATION PRECAUTIONS. LUNGS CLEAR, DIMINISHED. DENIES SOB. NO CHEST PAIN. BP STABLE. NO N/V. UO VIA CANALES. FLUID RESTRICTION. RIGHT ARM PICC DI. LEFT ARM PIV-DC. DR. ROSALES CALLED-UPDATED. ADDITIONAL K ORDERED. IV POTASSIUM INFUSING, NS TKO. ABLE TO USE CALL LIGHT
--- NOTE | 2020-03-15 10:00 | NUR ---
PT HAS MULTIPLE SORES IN MOUTH, ORAL CARE DONE. ASIRATION PRECAUTIONS. TOLERATING BEING UP IN CHAIR NOW-REPOSTIONED Q 1HOUR.
--- NOTE | 2020-03-15 11:30 | NUR ---
INCONTINENT, ATTEMPT TO STAND TO TRANSFER, UNABLE TO STAND. COMPLAINING REGARDING ACTIVITY AND PROGRESS. EXPLAINED PLAN OF CARE, NEED TO INCREASE STRENGTH AND WORK WITH THERAPY. CEILING LIFT TO BED. TOLERATED WELL BUT TIRED AFTER ACTIVITY.
[2020-03-15 14:08] LABS: ANTI-DSDNA ANTIBODIES <1 IU/mL (0-9); RNP ANTIBODIES <0.2 AI (0.0-0.9); SJOGREN'S ANTI-SS-A <0.2 AI (0.0-0.9); SJOGREN'S ANTI-SS-B <0.2 AI (0.0-0.9); SMITH ANTIBODIES <0.2 AI (0.0-0.9)
--- NOTE | 2020-03-15 14:50 | NUR ---
PT HAS BEEN SLEEPING WITHOUT COMPLAINTS. DENIES ANY CHEST PAIN. RHYTHM CHANGES-NARROW COMPLEX A FLUTTER, SLOWER WIDE QRS RHYTHM, SOME PACED BEATS. NO SYNCOPE OR PALPITATIONS. NOTIFIED DR. ROSALES-EKG DONE. DR. CONTEH HERE-UDPATED WITH RHYTHMS.
--- NOTE | 2020-03-15 16:07 | NUR ---
PT REFUSED THERAPY, STATES VERY TIRED, FATIGUES WITH JUST TURNING IN BED. REPOSITIONED. FREQUENT COUGH. ORAL CARE DONE, MAGIC MOUTHWASH USED, BICARB USED EARLIER.
--- NOTE | 2020-03-15 17:21 | NUR ---
BRENNAN CONTEH HERE-ASSESSED PT. DR. ROSALES HERE-REVIEWED RHYTHMS. CALL TO DR. CHAVEZ-HE WILL REVIEW EKGS. PT WITHOUT ANY COMPLAINTS OF PAIN OR SOB. FAMILY MEMBER HERE-VERY CONCERNED REGARDING PT'S NUTRITION. GIVEN THICKENED APPLE JUICE.
--- NOTE | 2020-03-15 17:29 | NUR ---
EKG- PER DR. CHAVEZ-NATIVELY CONDUCTED BEATS ARE NARROW, VERY WIDE BEATS ARE DEMAND RV PACING
--- NOTE | 2020-03-15 18:14 | NUR ---
REPORT TO EDIN FOWLER. PT TRANSFERRED TO PCU IN BED WITHOUT PROBLEMS. PT'S DAUGHTER UPDATED.
--- NOTE | 2020-03-15 18:27 | NUR ---
PT TRANSFERRED FROM ICU VIA BED. LIFT USED TO TRANSFER PT. CURRENTLY AFIB IN 70S ON TELE. NC IN PLACE FOR O2. REPORT GIVEN FROM CHERI FOWLER. FAMILY AT BEDSIDE. PT CURRENTLY EATING ICECREAM FOR SORES IN MOUTH. NO ACUTE NEEDS OR CONCERNS AT THIS TIME.
[2020-03-16 04:33] LABS: BASOPHILS ABSOLUTE AUTO 0.01 K/mm3 (0.00-0.23); BASOPHILS PERCENT AUTO 0 % (0-2); EOSINOPHILS PERCENT AUTO 3 % (0-6); Hematocrit 32.3 % (37.0-53.0); IMMATURE GRAN ABSOLUTE AUTO 0.06 K/mm3 (0.00-0.10); IMMATURE GRAN PERCENT AUTO 1 % (0-1); LYMPHOCYTES ABSOLUTE AUTO 0.27 K/mm3 (0.84-5.20); LYMPHOCYTES PERCENT AUTO 3 % (21-46); MONOCYTES ABSOLUTE AUTO 0.32 K/mm3 (0.16-1.47); MONOCYTES PERCENT AUTO 4 % (4-13); Mean Corpuscular HGB 26.1 pg (26.0-34.0); Mean Corpuscular Volume 84 fL (80-100); NEUTROPHILS ABSOLUTE AUTO 7.12 K/mm3 (1.96-9.15); NEUTROPHILS PERCENT AUTO 89 % (41-73); Platelet Count 155 K/mm3 (150-400); RDW Coefficient Variation 17.6 % (11.7-14.2); RDW Standard Deviation 53.1 fL (35.1-46.3); Red Blood Cell Count 3.83 M/mm3 (4.30-5.90); White Blood Cell Count 7.98 K/mm3 (4.00-11.30)
[2020-03-16 04:50] LABS: Magnesium, Blood 3.1 mg/dL (1.6-2.4)
[2020-03-16 05:08] LABS: Albumin, Blood 1.5 g/dL (3.4-5.0); Anion Gap 6 mmol/L (6-16); Blood Urea Nitrogen 154 mg/dL (8-24); Bun/Creatinine Ratio 45.2 (12.0-20.0); CO2, Blood 31 mmol/L (21-32); Calcium, Blood 8.1 mg/dL (8.5-10.1); Chloride, Blood 114 mmol/L (98-108); Creatinine, Blood 3.41 mg/dL (0.60-1.20); Glomerular Filtration Rate 19 (60-); Glucose, Blood 175 mg/dL (70-99); Phosphorus, Blood 4.1 mg/dL (2.5-4.9); Potassium, Blood 3.4 mmol/L (3.5-5.5); Sodium, Blood 151 mmol/L (136-145); Vancomycin, Random 17.4 ug/mL
--- NOTE | 2020-03-16 05:59 | NUR ---
SHIFT SUMMARY PT UNABLE TO SLEEP T/O SHIFT. PT TURNED Q 2 HOURS AND NEEDED FOR COMFORT. PT PROVIDED WITH ORAL CARE Q4 AND NEEDED. PT REQUIRES ALL MEDICATIONS TO BE CRUSHED, PT HAD METOPROLOL ER ORDERED. PHYSICIAN NOTIFIED AND MEDICATIONS CHANGED PER EMAR. PT'S OXYGEN NEEDS INCREASED TO 5 L OF OXYGEN VIA NC TO MAINTAIN OXYGEN SATURATION ABOVE 92%. PT REPORTS PAIN IN MOUTH D/T ULCERS. MEDICATIONS GIVEN PER EMAR AND COOL SWABS PROVIDED. PT REPORTS RELIEF WITH THESE MEASURES. PT SLOW TO RESPOND BUT ALERT AND ORIENTED X 4. PT REPORTS NO CP OR PRESSURE. CANALES PATENT AND DRAINING TO GRAVITY. HR STABLE. BP STABLE. WILL CONTINUE TO MONITOR UNTIL REPORT GIVEN TO SELVIN FOWLER.
--- NOTE | 2020-03-16 06:13 | NUR ---
PT REFUSED PT REFUSED CPAP T/O SHIFT.
[2020-03-16 12:00] LABS: ANA DIRECT Negative (Negative); ANTIMYELOPEROXIDASE (MPO) ABS <9.0 U/mL (0.0-9.0); ANTIPROTEINASE 3 (PR-3) ABS <3.5 U/mL (0.0-3.5); ATYPICAL PANCA <1:20 titer (Neg:<1:20); CYTOPLASMIC (C-ANCA) <1:20 titer (Neg:<1:20); PERINUCLEAR (P-ANCA) <1:20 titer (Neg:<1:20)
--- NOTE | 2020-03-16 17:27 | NUR ---
PT SUMMARY: NO ACUTE CHANGE FOR THE SHIFT, VITALS HRR PACED SR AT 60'S, BP SYSTOLIC 150-160'S, SATS ABOVE 94% ON 4L OF O2, AFEBRILE. DENIES SOB / OR CHEST PAIN/PRESSURE. PT CONTINUES ON IV ABO FOR PNA. WORKED WITH PT/OT TODAY WAS ABLE TO STAND VIA WALKER. PT REMAINS ON PUREE DIET, NECTAR THICK TOLERATING WELL, PT C/O MOUTH SORES MAGIC MOUTHWASH GIVEN X1 ORAL SUCTION Q4 HRS, PT USES SUCTION SWABS INDEPENDENTLY. DAUGHTER WAS IN TO VISIT WAS UPDATED REGARDING PLAN OF CARE. D5% RUNNING AT 50MLS/HR TO CONTINUE TO INFUSE PER DR ARMANDO'S ORDER DR GUZMAN AWARE DUE TO ELEVATED CBG. LABS IN AM. PT IN BED EATING DINNER WITH DAUGHTER, NO ISSUES AT THIS TIME, WILL MONITOR PT, TO REPORT TO ONCOMING SHIFT
[2020-03-17 05:04] LABS: Hematocrit 30.8 % (37.0-53.0); Hemoglobin 9.4 g/dL (13.5-17.5); Mean Corpuscular HGB 26.3 pg (26.0-34.0); Mean Corpuscular HGB Conc 30.5 g/dL (31.5-36.5); Mean Corpuscular Volume 86 fL (80-100); Mean Platelet Volume 12.8 fL (9.1-12.4); Platelet Count 160 K/mm3 (150-400); RDW Coefficient Variation 17.6 % (11.7-14.2); RDW Standard Deviation 53.4 fL (35.1-46.3); Red Blood Cell Count 3.57 M/mm3 (4.30-5.90); White Blood Cell Count 9.18 K/mm3 (4.00-11.30)
[2020-03-17 05:29] LABS: Albumin, Blood 1.4 g/dL (3.4-5.0); Anion Gap 4 mmol/L (6-16); Blood Urea Nitrogen 135 mg/dL (8-24); Bun/Creatinine Ratio 53.8 (12.0-20.0); CO2, Blood 32 mmol/L (21-32); Calcium, Blood 7.9 mg/dL (8.5-10.1); Chloride, Blood 114 mmol/L (98-108); Creatinine, Blood 2.51 mg/dL (0.60-1.20); Glomerular Filtration Rate 27 (60-); Glucose, Blood 245 mg/dL (70-99); Phosphorus, Blood 3.4 mg/dL (2.5-4.9); Potassium, Blood 3.3 mmol/L (3.5-5.5); Sodium, Blood 150 mmol/L (136-145)
--- NOTE | 2020-03-17 05:54 | NUR ---
SHIFT SUMMARY PT SLEPT T/O SHIFT. PT REPORTS PAIN IN MOUTH D/T ULCERS. ORAL CARE PROVIDED Q 4 AND NEEDED FOR COMFORT. PT REPOSITIONED Q 2 HRS AND NEEDED FOR COMFORT. PT ALTERNATED CPAP AND NC AT 4 L T/O SHIFT. OXYGEN SATURATION MAINTAINED ABOVE 92%. BP STABLE. HR STABLE. PT REPORTS NO CP OR PRESSURE. WILL CONTINUE TO MONITOR UNTIL REPORT GIVEN TO DAYSHIFT RN.
--- NOTE | 2020-03-17 17:30 | NUR ---
PT SUMMARY: STATUS CHANGED TO MEDICAL WITH NO TELE. NO ACUTE CHANGE FOR THE SHIFT, PT CONTINUES TO WORK WITH PT/OT/ST. VITALS STABLE. PT STARTED ON SCHEDULE MOUTHWASH FOR MOUTH SORE STARTING TODAY, PT REPORTED EFFECTIVENESS. PT CONTINUES ON IV ABO, D5% RUNNING AT 50MLS/HR. PT WAS UP IN THE RECLINER THIS MORNING, RECEIVED A BED BATH, WAS ABLE TO STAND UP WITH OT. PT IS NOW RESTING IN BED, AT BEDSIDE TO VISIT. ABLE TO MAKE NEEDS KNOWN, CALL LIGHTS IN REACH WILL REPORT TO ONCOMING SHIFT.
[2020-03-18 04:23] LABS: Hematocrit 32.3 % (37.0-53.0); Hemoglobin 9.7 g/dL (13.5-17.5)
[2020-03-18 04:44] LABS: Albumin, Blood 1.5 g/dL (3.4-5.0); Anion Gap 3 mmol/L (6-16); Blood Urea Nitrogen 107 mg/dL (8-24); Bun/Creatinine Ratio 52.5 (12.0-20.0); CO2, Blood 33 mmol/L (21-32); Calcium, Blood 8.2 mg/dL (8.5-10.1); Chloride, Blood 112 mmol/L (98-108); Creatinine, Blood 2.04 mg/dL (0.60-1.20); Glomerular Filtration Rate 34 (60-); Glucose, Blood 259 mg/dL (70-99); Magnesium, Blood 2.8 mg/dL (1.6-2.4); Potassium, Blood 3.3 mmol/L (3.5-5.5); Sodium, Blood 148 mmol/L (136-145); Vancomycin, Random 16.6 ug/mL
--- NOTE | 2020-03-18 05:32 | NUR ---
SHIFT SUMMARY PT ALERT AND ORIENTED X 4. PT CONFUSED AT TIMES. ABLE TO RE-DIRECT. PT REPOSITIONED Q 2 HRS AND NEEDED FOR COMFORT. HR STABLE. BP STABLE. PT REPORTS NO CP OR PRESSURE. ORAL CARE PROVIDED Q4 HOURS AND NEEDED FOR COMFORT. OXYGEN SATURATION MAINTAINED ABOVE 92% ON 3-4 L OF OXYGEN VIA NC. PT WORE CPAP AND NASAL CANULA T/O SHIFT. WILL CONTINUE TO MONITOR UNTIL REPORT GIVEN TO DAYSHIFT RN.
--- NOTE | 2020-03-18 07:25 | NUR ---
ASSUMED CARE: PT AWAKE, TALKING TO STAFF. NO ACUTE NEEDS OR CONCERNS AT THIS TIME.
--- NOTE | 2020-03-18 12:20 | NUR ---
PT ARRIVED TO ROOM 329 VIA BED, ORIENTED TO ROOM AND CALL SYSTEM. IVF INFUSING TO [place] PICC. QUICK ASSESSMENT COMPLETED. PT DENIES WANTS OR NEEDS AT THIS TIME. CALL RAMOS IN PLACE, WILL CONTINUE TO MONITOR.
--- NOTE | 2020-03-18 12:40 | NUR ---
REPORT CALLED TO JANETH HOUSTON. PT'S DAUGHTER MADE AWARE OF PT'S TRANSFER AND UPDATED ON PT'S STATUS. TRANSFERRED VIA BED. NO ACUTE NEEDS OR CONCERNS AT THIS TIME. TRANSFERRED BY CATERING SERVICE MANAGER STAFF
--- NOTE | 2020-03-18 18:43 | NUR ---
NO ACUTE CHANGES NOTED THIS SHIFT. WILL CONTINUE TO MONITOR AND REPORT TO ONCOMING RN
[2020-03-19 05:51] LABS: Hematocrit 32.8 % (37.0-53.0); Hemoglobin 9.7 g/dL (13.5-17.5)
[2020-03-19 07:10] LABS: Magnesium, Blood 2.8 mg/dL (1.6-2.4)
[2020-03-19 07:17] LABS: Albumin, Blood 1.6 g/dL (3.4-5.0); Anion Gap 3 mmol/L (6-16); Blood Urea Nitrogen 91 mg/dL (8-24); Bun/Creatinine Ratio 55.2 (12.0-20.0); CO2, Blood 34 mmol/L (21-32); Calcium, Blood 8.5 mg/dL (8.5-10.1); Chloride, Blood 112 mmol/L (98-108); Creatinine, Blood 1.65 mg/dL (0.60-1.20); Glomerular Filtration Rate 43 (60-); Glucose, Blood 200 mg/dL (70-99); Phosphorus, Blood 2.8 mg/dL (2.5-4.9); Potassium, Blood 3.4 mmol/L (3.5-5.5); Sodium, Blood 149 mmol/L (136-145); Vancomycin, Random 17.3 ug/mL
--- NOTE | 2020-03-19 07:48 | NUR ---
SHIFT SUMMARY PATIENT ALERT AND ORIENTED. WAS AWAKE MUCH OF THE NIGHT. O2 INCREASED TO 5 LITERS VIA NASAL CANULA. IV PATENT AND INFUSING. BED IN LOWEST POSITION WITH WHEELS LOCKED AND ALARM ON. CALL LIGHT WITHIN REACH. REPORT GIVEN TO ONCOMING RN.
--- NOTE | 2020-03-20 04:45 | NUR ---
SHIFT SUMMARY ASSUMED CARE OF PT AT 1900. PT IS A/OX4. HEART SOUNDS REGULAR, LUNG SOUNDS HAVE CRACKLES IN THE L LUNG. PT HAS BEEN COUGHING UP THICK, BLOODY SPUTUM. PT WAS COMPIANT WITH CPAP BUT TOOK IT OFF EARLY THIS AM DUE TO THE FACT THAT HE COULDNT DRINK WITH A STRAW IF HE WAS THIRSTY. PT REMINED ON 5L NC. PT CATHETER IS DRAINING DARK HORACIO URINE. PT CONTINENT OF BOWEL. THIS AM AROUND 0300, PT SCRATCHED A BLISTER ON HIS LEG AND THOUGH THAT HE WAS GETTING BED SORES FROM BEING IN BED. PT EDUCATED ABOUT FLUID OVERLOAD AND THE EFFECTS ON SKIN. BANDAIDE APPLIED FOR PATIENT COMFORT. PT IS VERY DEPRESSED THIS AM. PT TALKED ABOUT HOW HE DOES NOT THINK HE IS DOING BETTER AND HOW HE WILL NEVER LEAVE. PT ALSO UPSET ABOUT NOT BEING ABLE TO USE STRAWS AND ABOUT BEING ON A FLUID RESTRICTION. PT EDUCATED ABOUT PALLITIVE CARE AND THE RESOURCES THEY PROVIDE. PT AGREED THAT HE WOULD TALK TO THEM WITH HIS PRESENT. CALL LIGHT IN REACH, BED IN LOWEST POSTION, WILL CONTINUE TO MONITOR UNTIL DAYSHIFT NURSE ARRIVES.
[2020-03-20 04:52] LABS: Hematocrit 31.1 % (37.0-53.0); Hemoglobin 9.3 g/dL (13.5-17.5)
[2020-03-20 05:10] LABS: Albumin, Blood 1.5 g/dL (3.4-5.0); Anion Gap 4 mmol/L (6-16); Blood Urea Nitrogen 78 mg/dL (8-24); CO2, Blood 31 mmol/L (21-32); Calcium, Blood 8.2 mg/dL (8.5-10.1); Chloride, Blood 110 mmol/L (98-108); Creatinine, Blood 1.53 mg/dL (0.60-1.20); Glomerular Filtration Rate 47 (60-); Glucose, Blood 181 mg/dL (70-99); Magnesium, Blood 2.7 mg/dL (1.6-2.4); Potassium, Blood 3.5 mmol/L (3.5-5.5); Sodium, Blood 145 mmol/L (136-145)
--- NOTE | 2020-03-20 17:09 | NUR ---
PT IS A/OX3, PLEASANT AND COOPERATIVE, THE PT DENIES PAIN EXCEPT FOR MOUTH PAIN, THE PT IS SOB WITH MINIMAL ACTIVITY AND IS ON 8L/MIN O2 VIA CPAP WITH BREAKS ON NC AT 8L/MIN, PT IS TAKING SMALL AMOUNTS OF PUREE DIET, THE PT IS GIVEN MAGIC MOUTH WASH BEFORE MEALS AND LIDOCAINE VISCOUS AFTER MEALS, THE PT WAS UP ON THE SIDE OF THE BED FOR MEALS TODAY AND WORKED WITH THE PHYSCIAL THERAPIST, DR. AMATO CAME AND CONSULTED WITH THE PT, A BIOPSY WAS TAKEN FROM A SORE IN THE PTS MOUTH, FAMILY WAS IN TO SEE THE PT, CALL LIGHT IN REACH, MOUTH CARE WAS GIVEN AFTER THE BIOPSY WITH CARE, WILL CONTINUE TO MONITOR FOR CHANGES
[2020-03-21 05:15] LABS: BASOPHILS ABSOLUTE AUTO 0.03 K/mm3 (0.00-0.23); BASOPHILS PERCENT AUTO 0 % (0-2); EOSINOPHILS ABSOLUTE AUTO 0.01 K/mm3 (0.00-0.68); EOSINOPHILS PERCENT AUTO 0 % (0-6); Hematocrit 32.4 % (37.0-53.0); Hemoglobin 9.5 g/dL (13.5-17.5); IMMATURE GRAN ABSOLUTE AUTO 0.08 K/mm3 (0.00-0.10); IMMATURE GRAN PERCENT AUTO 1 % (0-1); LYMPHOCYTES ABSOLUTE AUTO 0.45 K/mm3 (0.84-5.20); LYMPHOCYTES PERCENT AUTO 3 % (21-46); MONOCYTES ABSOLUTE AUTO 0.51 K/mm3 (0.16-1.47); MONOCYTES PERCENT AUTO 3 % (4-13); Mean Corpuscular HGB 25.7 pg (26.0-34.0); Mean Corpuscular HGB Conc 29.3 g/dL (31.5-36.5); Mean Corpuscular Volume 88 fL (80-100); Mean Platelet Volume 11.4 fL (9.1-12.4); NEUTROPHILS ABSOLUTE AUTO 13.88 K/mm3 (1.96-9.15); NEUTROPHILS PERCENT AUTO 93 % (41-73); Platelet Count 221 K/mm3 (150-400); RDW Coefficient Variation 19.8 % (11.7-14.2); RDW Standard Deviation 58.9 fL (35.1-46.3); Red Blood Cell Count 3.69 M/mm3 (4.30-5.90); White Blood Cell Count 14.96 K/mm3 (4.00-11.30)
[2020-03-21 05:41] LABS: Bun/Creatinine Ratio 54.6 (12.0-20.0); Calcium, Blood 8.7 mg/dL (8.5-10.1); Creatinine, Blood 1.41 mg/dL (0.60-1.20); Potassium, Blood 3.6 mmol/L (3.5-5.5)
--- NOTE | 2020-03-21 06:10 | NUR ---
SHIFT SUMMARY PT A&O; DENIES CHEST PAIN; VSS; O2 SATS >92 W/ CPAP IN PLACE MOST OF SHIFT; DESATS QUICKLY W/ EXERTION; PT REPOSITIONED FREQUENTLY T/O SHIFT; PT STATES HE BREATHES EASIEST WHEN DANGLING AT BEDSIDE; ORAL CARE PROVIDED; STITCH INSIDE LIP IN PLACE; SCANT AMOUNT OF BLOOD NOTED; CANALES PATENT & DRAINING; AT BEDSIDE THIS AM TO ASSESS PT; NEW ORDERS GIVEN FOR LASIX AND KCL, REFER TO EMAR; CALL LIGHT IN REACH; BED IN LOWEST POSITION; WILL CONTINUE TO MONITOR CLOSELY UNTIL HAND OFF TO DAY SHIFT RN.
--- NOTE | 2020-03-21 16:06 | NUR ---
PT IS A/OX3, PLEASANT AND COOPERATIVE, THE PT IS UP WITH MAX ASSIST THE PT WAS UNABLE TO STAND UP TODAY DUE TO WEAKNESS, PT DENIES PAIN EXCEPT HIS MOUTH, PT WAS GIVEN THE MAGIC MOUTHWASH AND [employer] VISCUOS SCHEDULED, MOUTH CARE WAS GIVEN AFTER EACH MEAL, THE PT REPORTS SOME IMPROVEMNT WITH THE SORENESS, PT CONTINUES TO BE ON 8L/MIN O2 THROUGH THE CPAP AND NC, PT REPORTS IMPROVEMNT WITH HIS BREATHING SINCE STARTING FLONAISE, PT IS UP WITH HIS DAUGHTER AT THIS TIME IN A WHEELCHAIR OUT OF HIS ROOM, WILL CONTINUE TO MONITOR AND ASSESS FOR CHANGES
--- NOTE | 2020-03-21 22:05 | NUR ---
2048 PT LYING IN BED, DENIES ANY DISCOMFORT AT THIS TIME. ON 7.5L NC O2 HUMIDIFIED AT 94%, DENIES SOB. NO OTHER APPARENT SIGNS OF DISTRESS. CALL LIGHT IS IN REACH.
--- NOTE | 2020-03-21 22:24 | NUR ---
PT LYING IN BED, EYES CLOSED, APPEARS TO BE RESTING. BREATHING IS EVEN, UNLABORED. NO APPARENT SIGNS OF DISTRESS. CALL LIGHT IS IN REACH.
--- NOTE | 2020-03-21 23:20 | NUR ---
PT LYING IN BED, EYES CLOSED, APPEARS TO BE RESTING. BREATHING IS EVEN, UNLABORED. NO APPARENT SIGNS OF DISTRESS. CALL LIGHT IS IN REACH.
--- NOTE | 2020-03-21 23:25 | NUR ---
PT SITTING ON EDGE OF BED, NO APPARENT SIGNS OF DISTRESS. CALL LIGHT IS IN REACH.
--- NOTE | 2020-03-22 01:46 | NUR ---
PT LYING IN BED, EYES CLOSED, APPEARS TO BE RESTING. BREATHING IS EVEN, UNLABORED. NO APPARENT SIGNS OF DISTRESS. CALL LIGHT IS IN REACH.
--- NOTE | 2020-03-22 04:12 | NUR ---
PT LYING IN BED, EYES CLOSED, APPEARS TO BE RESTING. BREATHING IS EVEN, UNLABORED. NO APPARENT SIGNS OF DISTRESS. CALL LIGHT IS IN REACH.
--- NOTE | 2020-03-22 04:13 | NUR ---
PT IS AAO X 4, GETS SOB WHEN UP TO BSC. ON 8L NC HUMIDIFIED AT 94%. PT HAS A CANALES. BS WAS 166.
[2020-03-22 05:35] LABS: Hematocrit 30.7 % (37.0-53.0); Hemoglobin 9.1 g/dL (13.5-17.5)
[2020-03-22 06:00] LABS: Albumin, Blood 1.6 g/dL (3.4-5.0); Anion Gap 5 mmol/L (6-16); Blood Urea Nitrogen 65 mg/dL (8-24); CO2, Blood 32 mmol/L (21-32); Calcium, Blood 8.8 mg/dL (8.5-10.1); Chloride, Blood 109 mmol/L (98-108); Creatinine, Blood 1.25 mg/dL (0.60-1.20); Glomerular Filtration Rate 60 (60-); Glucose, Blood 149 mg/dL (70-99); Magnesium, Blood 2.6 mg/dL (1.6-2.4); Phosphorus, Blood 2.9 mg/dL (2.5-4.9); Potassium, Blood 3.4 mmol/L (3.5-5.5); Sodium, Blood 146 mmol/L (136-145)
--- NOTE | 2020-03-22 06:00 | NUR ---
PT IS LYING IN BED, EYES CLOSED, APPEARS TO BE RESTING. WAKES EASILY TO VERBAL STIMULI. NO APPARENT SIGNS OF DISTRESS. CALL LIGHT IS IN REACH. NO OTHER CHANGES THIS SHIFT.
[2020-03-22 15:08] LABS: BASOPHILS ABSOLUTE AUTO 0.07 K/mm3 (0.00-0.23); BASOPHILS PERCENT AUTO 1 % (0-2); EOSINOPHILS ABSOLUTE AUTO 0.05 K/mm3 (0.00-0.68); EOSINOPHILS PERCENT AUTO 0 % (0-6); Hematocrit 29.7 % (37.0-53.0); Hemoglobin 8.9 g/dL (13.5-17.5); IMMATURE GRAN ABSOLUTE AUTO 0.03 K/mm3 (0.00-0.10); IMMATURE GRAN PERCENT AUTO 0 % (0-1); LYMPHOCYTES ABSOLUTE AUTO 0.38 K/mm3 (0.84-5.20); LYMPHOCYTES PERCENT AUTO 3 % (21-46); MONOCYTES ABSOLUTE AUTO 0.47 K/mm3 (0.16-1.47); MONOCYTES PERCENT AUTO 4 % (4-13); Mean Corpuscular HGB 26.3 pg (26.0-34.0); Mean Corpuscular Volume 88 fL (80-100); Mean Platelet Volume 11.1 fL (9.1-12.4); NEUTROPHILS ABSOLUTE AUTO 10.51 K/mm3 (1.96-9.15); NEUTROPHILS PERCENT AUTO 91 % (41-73); Platelet Count 186 K/mm3 (150-400); RDW Coefficient Variation 19.9 % (11.7-14.2); RDW Standard Deviation 59.3 fL (35.1-46.3); Red Blood Cell Count 3.38 M/mm3 (4.30-5.90); White Blood Cell Count 11.51 K/mm3 (4.00-11.30)
--- NOTE | 2020-03-22 18:47 | NUR ---
SHIFT SUMMARY PT AxOx4, PLEASANT AND COOPERATIVE WITH CARE. IN ROOM MOST OF THE DAY. PT C/O MOUTH PAIN D/T ULCERS AND DIFFICULTY EATING D/T PAIN. SPEECH THERAPY EVAL AND RECOMMENDS KEEPING HIM ON PUREE DIET D/T PAIN. HE IS AGREEABLE TO THAT. MEDICATED NUMBING ORAL SOLUTION OFFERED BEFORE AND AFTER MEALS. PT ON 6-8L O2 WITH SATS IN LOW-MID 90'S. PT VERY DECONDITIONED AND DISCOURAGED ABOUT QUICKLY FATIGUING WITH ACTIVITY. PT AND OT WORKING WITH PATIENT. PT UP IN RECLINER FOR MEALS AND BSC FOR BM. BM X3 TODAY. USED LIFT ASSIST TO RETURN TO BED. PLAN FOR SNF WHEN PT IS STRONGER. CURRENTLY RESTING IN BED WITH CALL LIGHT IN REACH. VITALS REVIEWED. DENIES ANY NEEDS AT THIS TIME.
--- NOTE | 2020-03-22 22:46 | NUR ---
2036 PT LYING IN BED, REPORTS SOB WITH EXERTION, ON 6L O2 NC HUMIDIFIED AT 92%. NO OTHER APPARENT SIGNS OF DISTRESS. SBD ON COCCYX AND ABRASION ON R BUTTOCK, DRESSING X 2 C/D/I. CANALES. PT DECLINED SCD'S. CALL LIGHT IS IN REACH.
--- NOTE | 2020-03-22 23:02 | NUR ---
PT LYING IN BED, EYES CLOSED, APPEARS TO BE RESTING. BREATHING IS EVEN, UNLABORED. NO APPARENT SIGNS OF DISTRESS. CALL LIGHT IS IN REACH.
--- NOTE | 2020-03-23 00:39 | NUR ---
PT LYING IN BED, EYES CLOSED, APPEARS TO BE RESTING. BREATHING IS EVEN, UNLABORED. NO APPARENT SIGNS OF DISTRESS. CALL LIGHT IS IN REACH.
--- NOTE | 2020-03-23 01:08 | NUR ---
PT'S CONT BIOX WAS ALARMING FOR LOW O2 SAT AT 82-84. PT IS ALREADY MOVED UP IN BED AND HOB ELEVATED. ATTEMPTED TO INCREASE O2 FROM 6 L TO 7 AND THEN 8 WITH NO CHANGE. CHANGED FINGER PROBE WITH NO CHANGE. INCREASED O2 TO 9 L WITH NO CHANGE, MOVED NC TO MOUTH INSTEAD OF NOSE, O2 SAT IS NOW AT 89%. WILL CONT TO MONITOR. NO OTHER APPARENT SIGNS OF DISTRESS. CALL LIGHT IS IN REACH.
--- NOTE | 2020-03-23 02:36 | NUR ---
PT LYING IN BED, EYES CLOSED, APPEARS TO BE RESTING. BREATHING IS EVEN, UNLABORED. NO APPARENT SIGNS OF DISTRESS. CALL LIGHT IS IN REACH.
--- NOTE | 2020-03-23 05:50 | NUR ---
0400 PT SITTING ON EDGE OF BED. PT EXPRESSED FRUSTRATION WITH HIS WEAKNESS, HIS GOALS ARE TO WORK WITH PT DAILY ON GETTING UP ON HIS LEGS AND GETTING HIS STRENGTH BACK. SENT A NOTE TO PT SO THEY WOULD KNOW HIS WISHES. PT STATED HIS S.O. IS STARTING TO TRY TO FIND OUT INFORMATION ABOUT EQUIPMENT THAT MIGHT BE AVAILABLE TO HIM AT THE [facility], SEND A NOTE TO [employer] TO SEE IF THERE IS ANY INFORMATION THEY WERE AWARE OF THAT MIGHT HELP HIM OUT. PT ALSO WANTED TO KNOW THE RESULTS OF HIS BIOPSY, PUT NURSE NOTIFY NOTE ON HIS ORDERS, WROTE IT ON HIS WHITEBOARD IN HIS ROOM, WILL PASS IT ON THE DAY RN IN REPORT AND TOLD THE PT HE SHOULD ALSO BRING IT UP WITH THE DR WHEN THEY MADE THEIR ROUNDS TODAY. NO OTHER APPARENT SIGNS OF DISTRESS. CALL LIGHT IS IN REACH.
--- NOTE | 2020-03-23 05:53 | NUR ---
GOT PT UP TO BEDSIDE RECLINER WITH ASSIST FROM ANOTHER RN AND WITH THE LARY LIFT. PT NOW SITTING IN BEDSIDE RECLINER. NO APPARENT SIGNS OF DISTRESS. DENIES NEED FOR ANYTHING ELSE AT THIS TIME. CALL LIGHT IS IN REACH. NO OTHER CHANGES THIS SHIFT.
--- NOTE | 2020-03-23 05:54 | NUR ---
PT IS AAO X 4, ON 9L NC HUMIDIFIED AT 89%. SOB THAT GETS WORSE WITH EXERTION. PRASHANTH CANALESC. BS WAS 166. DECLINED TO WEAR SCD'S. SBD ON COCCYX AND ABRASION ON R BUTTOCK.
[2020-03-23 05:59] LABS: BASOPHILS ABSOLUTE AUTO 0.08 K/mm3 (0.00-0.23); BASOPHILS PERCENT AUTO 1 % (0-2); EOSINOPHILS ABSOLUTE AUTO 0.05 K/mm3 (0.00-0.68); EOSINOPHILS PERCENT AUTO 0 % (0-6); Hematocrit 30.9 % (37.0-53.0); Hemoglobin 9.3 g/dL (13.5-17.5); IMMATURE GRAN ABSOLUTE AUTO 0.04 K/mm3 (0.00-0.10); IMMATURE GRAN PERCENT AUTO 0 % (0-1); LYMPHOCYTES ABSOLUTE AUTO 0.47 K/mm3 (0.84-5.20); LYMPHOCYTES PERCENT AUTO 4 % (21-46); MONOCYTES ABSOLUTE AUTO 0.54 K/mm3 (0.16-1.47); MONOCYTES PERCENT AUTO 4 % (4-13); Mean Corpuscular HGB 26.5 pg (26.0-34.0); Mean Corpuscular HGB Conc 30.1 g/dL (31.5-36.5); Mean Corpuscular Volume 88 fL (80-100); Mean Platelet Volume 11.8 fL (9.1-12.4); NEUTROPHILS ABSOLUTE AUTO 11.13 K/mm3 (1.96-9.15); NEUTROPHILS PERCENT AUTO 91 % (41-73); Platelet Count 225 K/mm3 (150-400); RDW Standard Deviation 60.3 fL (35.1-46.3); Red Blood Cell Count 3.51 M/mm3 (4.30-5.90); White Blood Cell Count 12.31 K/mm3 (4.00-11.30)
[2020-03-23 06:24] LABS: Albumin, Blood 1.7 g/dL (3.4-5.0); Anion Gap 5 mmol/L (6-16); Blood Urea Nitrogen 64 mg/dL (8-24); Bun/Creatinine Ratio 52.5 (12.0-20.0); CO2, Blood 32 mmol/L (21-32); Calcium, Blood 8.7 mg/dL (8.5-10.1); Chloride, Blood 106 mmol/L (98-108); Creatinine, Blood 1.22 mg/dL (0.60-1.20); Glomerular Filtration Rate >60 (60-); Glucose, Blood 128 mg/dL (70-99); Magnesium, Blood 2.5 mg/dL (1.6-2.4); Phosphorus, Blood 2.5 mg/dL (2.5-4.9); Potassium, Blood 3.6 mmol/L (3.5-5.5); Sodium, Blood 143 mmol/L (136-145)
--- NOTE | 2020-03-23 18:49 | NUR ---
SHIFT SUMMARY PT AxOx4. PLEASANT AND COOPERATIVE WITH CARE. PT EXPRESSING FRUSTRATING WITH CARE TODAY. DOES NOT FEEL LIKE HE IS GETTING BETTER OR CLEAR ANSWERS ON WHAT IS GOING ON WITH HIM. DR WASHINGTON INFORMED, AND SPENT MUCH TIME FACE TO FACE WITH PATIENT TODAY. ULCERS IN MOUTH IMPROVED COMPARED TO YESTERDAY. PT REPORTS LESS PAIN. NURSE DOING ORAL CARE AFTER MEALS, AND PT USING SPONGE SWABS WITH MOUTHWASH TO FRESHEN UP IN BETWEEN. DECLINED ORAL NUMBING SOLUTION TODAY. FEELS LIKE THE ORAL CARE IS WORKING AND FEELING BETTER FOR HIM. DAUGHTER IN ROOM TODAY. CANALES DC'D AT 1200 D/T SKIN BREAKDOWN ON GLANS PENIS. SOME BLEEDING IN ATTENDS. BLADDER SCAN AT 1800 >410ML URINE RETENTION. DR WASHINGTON NOTIFIED, VERBAL ORDER TO STRAIGHT CATH >500ML. PT PUREE DIET, LOW APPETITE. FLUID RESTRICTION TO 1000ML/SHIFT. BLE EDEMA +2/3. DOUG HOSE STOCKINGS APPLIED. WORKED WITH PT/OT TODAY. UP IN CHAIR FOR AFTERNOON. 1 SMALL BM TODAY. PT ON 6-8L O2 WITH SATS AT >90%. PT SENT FOR CT OF CHEST AND COVID TEST PERFORMED. CURRENTLY RESTING IN BED WITH CALL LIGHT IN REACH. VITALS REVIEWED. DENIES PAIN OR ANY FURTHER NEEDS AT THIS TIME.
[2020-03-23 19:34] LABS: Influenza A, PCR Negative (NEGATIVE); Influenza B, PCR Negative (NEGATIVE); Resp Syncytial Virus, PCR Negative (NEGATIVE); SARS-Cov-2 (COVID-19) PCR, MMC Negative (NEGATIVE)
[2020-03-24 05:50] LABS: BASOPHILS ABSOLUTE AUTO 0.03 K/mm3 (0.00-0.23); BASOPHILS PERCENT AUTO 0 % (0-2); EOSINOPHILS ABSOLUTE AUTO 0.04 K/mm3 (0.00-0.68); EOSINOPHILS PERCENT AUTO 0 % (0-6); Hematocrit 29.9 % (37.0-53.0); Hemoglobin 8.9 g/dL (13.5-17.5); IMMATURE GRAN ABSOLUTE AUTO 0.03 K/mm3 (0.00-0.10); IMMATURE GRAN PERCENT AUTO 0 % (0-1); LYMPHOCYTES ABSOLUTE AUTO 0.47 K/mm3 (0.84-5.20); LYMPHOCYTES PERCENT AUTO 5 % (21-46); MONOCYTES ABSOLUTE AUTO 0.52 K/mm3 (0.16-1.47); MONOCYTES PERCENT AUTO 6 % (4-13); Mean Corpuscular HGB 26.4 pg (26.0-34.0); Mean Corpuscular HGB Conc 29.8 g/dL (31.5-36.5); Mean Corpuscular Volume 89 fL (80-100); Mean Platelet Volume 11.2 fL (9.1-12.4); NEUTROPHILS ABSOLUTE AUTO 8.26 K/mm3 (1.96-9.15); NEUTROPHILS PERCENT AUTO 88 % (41-73); Platelet Count 218 K/mm3 (150-400); RDW Coefficient Variation 20.4 % (11.7-14.2); RDW Standard Deviation 63.6 fL (35.1-46.3); Red Blood Cell Count 3.37 M/mm3 (4.30-5.90); White Blood Cell Count 9.35 K/mm3 (4.00-11.30)
[2020-03-24 06:08] LABS: Albumin, Blood 1.6 g/dL (3.4-5.0); Anion Gap 4 mmol/L (6-16); Blood Urea Nitrogen 66 mg/dL (8-24); Bun/Creatinine Ratio 53.2 (12.0-20.0); CO2, Blood 33 mmol/L (21-32); Calcium, Blood 8.9 mg/dL (8.5-10.1); Chloride, Blood 107 mmol/L (98-108); Creatinine, Blood 1.24 mg/dL (0.60-1.20); Glomerular Filtration Rate >60 (60-); Glucose, Blood 134 mg/dL (70-99); Magnesium, Blood 2.4 mg/dL (1.6-2.4); Phosphorus, Blood 2.7 mg/dL (2.5-4.9); Potassium, Blood 3.5 mmol/L (3.5-5.5); Sodium, Blood 144 mmol/L (136-145)
--- NOTE | 2020-03-24 06:17 | NUR ---
SHIFT SUMMARY AOX4. VSS. DENIES PAIN OR N/V. IS DYSPNIC c MOVEMENT @TIMES & SPO2 CAN DROP TO 87-89% c MINIMAL ACTIVITY, SPO2 JUMPS BACK UP ABOVE 90% AFTER A FEW MIN OF DEEP BREATHING. ON 5L O2 VIA NC. EXPIRATORY WHEEZES c CRACKLES IN BASES HEARD ON AUSCULTATION OF LUNGS. BLE HAVE +2 PITTING EDEMA. BLADDER SCANN SHOWED 475ML IN BLADDER LAST NIGHT PT ASKED TO USE URINAL VOIDED 275ML, POST BLADDER SCAN SHOWED 202ML. PT VOIDED ANOTHER 250ML c URINAL LATER IN NIGHT. HAD SMALL CLEAR, YELLOW, JELLY STOOL THIS AM. SCANT AMOUNT BLOOD AROUND MEATUS OF PENIS FROM CANALES BEING REMOVED YESTERDAY. ORAL MUCOSA IS DRY, RED c MANY ULCERATIONS & SORES, PT STATES THEY ARE PAINFUL & ORAL CARE HELPS. CALL LIGHT IN REACH & PT ABLE TO MAKE NEEDS KNOWN.
--- NOTE | 2020-03-24 17:42 | NUR ---
SHIFT SUMMARY PT SATING IN THE LOW TO MID 90S ON 5L O2 VIA NC HUMIDIFIED. DESATS EASILY WITH MINIMAL EXERTION. PT UP TO CHAIR THIS SHIFT FOR A FEW HOURS. TOLERATED WELL. 2P MAX ASSIST OR SIT TO STAND NEEDED FOR TRANSFERS. PT/OT WORKED WITH PT TODAY. URINARY RETENTION CONTINUES. PT STRAIGHT CATHED TWICE THIS SHIFT DUE TO INABILITY TO URINIATE ON HIS OWN. PT HAD ANOTHER GELATINOUS STOOL- CLEAR/YELLOW IN COLOR. DR. WASHINGTON AWARE. SMALL AMOUNT OF BLEEDING FROM PENIS CONTINUES SINCE CANALES CATH WAS REMOVED YESTERDAY. COUDE NEEDED FOR STRAIGHT CATH FOR COMFORT. PT SEEN BY PULMONOLOGY THIS EVENING. DRESSINGS ON SACRUM AND BUTTOCKS ARE C/D/I. NO OTHER CHANGES IN ASSESSMENT AT THIS TIME. VS REVIEWED. WILL CONITNUE TO MONITOR UNTIL TURNOVER IS COMPLETE.
--- NOTE | 2020-03-25 03:44 | NUR ---
SHIFT SUMMARY: VSS. AFEB. 02 92-95% ON 5-6L VIA NC. PT SOB WHILE EXERTING SELF TO MOVE OR TO SPEAK. STRAIGHT CATHED X 1 PER ORDERS DUE TO NO SPONTANEOUS VOID- BLADDER SCAN >500. PT AYAD WELL. SOME IRRITABILITY SURROUNDING FLUID RESTRICTIONS. MOIST SPONGES GIVEN TO PT TO HELP W/ DRY MOUTH. SLEPT INTERMITTENTLY. REQUIRES 1 ASSIST TO GET TO A SITTING POSITION AT EDGE OF BED. NO ACUTE CHANGES AT THIS TIME. WILL CONT TO MONITOR.
[2020-03-25 05:14] LABS: BASOPHILS ABSOLUTE AUTO 0.03 K/mm3 (0.00-0.23); BASOPHILS PERCENT AUTO 0 % (0-2); EOSINOPHILS ABSOLUTE AUTO 0.15 K/mm3 (0.00-0.68); EOSINOPHILS PERCENT AUTO 2 % (0-6); Hematocrit 28.2 % (37.0-53.0); Hemoglobin 8.5 g/dL (13.5-17.5); IMMATURE GRAN ABSOLUTE AUTO 0.02 K/mm3 (0.00-0.10); IMMATURE GRAN PERCENT AUTO 0 % (0-1); LYMPHOCYTES ABSOLUTE AUTO 0.49 K/mm3 (0.84-5.20); LYMPHOCYTES PERCENT AUTO 7 % (21-46); MONOCYTES PERCENT AUTO 7 % (4-13); Mean Corpuscular HGB 26.8 pg (26.0-34.0); Mean Corpuscular HGB Conc 30.1 g/dL (31.5-36.5); Mean Corpuscular Volume 89 fL (80-100); Mean Platelet Volume 10.9 fL (9.1-12.4); NEUTROPHILS ABSOLUTE AUTO 5.95 K/mm3 (1.96-9.15); NEUTROPHILS PERCENT AUTO 83 % (41-73); Platelet Count 183 K/mm3 (150-400); RDW Coefficient Variation 20.5 % (11.7-14.2); RDW Standard Deviation 63.7 fL (35.1-46.3); Red Blood Cell Count 3.17 M/mm3 (4.30-5.90); White Blood Cell Count 7.14 K/mm3 (4.00-11.30)
[2020-03-25 05:41] LABS: Albumin, Blood 1.5 g/dL (3.4-5.0); Albumin/Globulin Ratio 0.3 (0.8-1.8); Bun/Creatinine Ratio 46.4 (12.0-20.0); Calcium, Blood 8.5 mg/dL (8.5-10.1); Creatinine, Blood 1.25 mg/dL (0.60-1.20); Globulin, Blood 4.4 g/dL (2.2-4.0); Magnesium, Blood 2.2 mg/dL (1.6-2.4); Phosphorus, Blood 2.4 mg/dL (2.5-4.9); Potassium, Blood 3.4 mmol/L (3.5-5.5); Total Protein, Blood 5.9 g/dL (6.4-8.2)
--- NOTE | 2020-03-25 18:25 | NUR ---
SHIFT SUMMARY PT A/O X4; PLEASANT AND COOPERATIVE. PT HAS BEEN VERY DYSPNEIC THIS SHIFT; CURRENTLY ON AIRVO AT 15 LITERS. PT ALSO REPORTS OVERALL MALAISE AND THAT HE "FEELS WORSE THAN HE HAS IN A WHILE". HARD TO DRAW IN BREATH DUE TO THE SORES INSIDE HIS NOSE AND MOUTH. BLADDER SCANNED X2 THIS SHIFT AND STRAIGHT CATHED X1 THIS SHIFT. OVER 800 CC DRAINED WHEN STRAIGHT CATHED. PT GIVEN MORE BUMEX TODAY. ON A STRICT FLUID RESTRICTION OF 1000 CC. VSS ARE CURRENTLY STABLE AND I WILL CONTINUE TO MONITOR THIS PT UNTIL MANAGER CATH LAB ARRIVES.
--- NOTE | 2020-03-25 20:45 | NUR ---
SPOKE W/HOSPITALIST RE: ONGOING PT URINARY RETENTION REQUIRING STRAIGHT CATHETERIZATION Q 6HRS. PT IS STRICT I/O STATUS AND IS BEING DIURESED. ASIA PLUMMER OKAYED LEAVING CATHETER IN AT THIS TIME DUE TO STRICT I/O. NOTED.
--- NOTE | 2020-03-25 22:30 | NUR ---
16FR COUDE PLACED. PT AYAD WELL. NO PAIN WHILE BALLOON FILLED W/ 10CC. PT REPORTS SLIGHT BURNING SENSATION AT THE PROSTATE. WILL CONT TO MONITOR.
[2020-03-26 06:05] LABS: Hematocrit 28.6 % (37.0-53.0); Hemoglobin 8.5 g/dL (13.5-17.5)
[2020-03-26 06:20] LABS: Albumin, Blood 1.6 g/dL (3.4-5.0); Anion Gap 3 mmol/L (6-16); Blood Urea Nitrogen 61 mg/dL (8-24); Bun/Creatinine Ratio 44.5 (12.0-20.0); CO2, Blood 33 mmol/L (21-32); Calcium, Blood 8.6 mg/dL (8.5-10.1); Chloride, Blood 107 mmol/L (98-108); Creatinine, Blood 1.37 mg/dL (0.60-1.20); Glomerular Filtration Rate 54 (60-); Glucose, Blood 106 mg/dL (70-99); Phosphorus, Blood 2.9 mg/dL (2.5-4.9); Potassium, Blood 3.7 mmol/L (3.5-5.5); Sodium, Blood 143 mmol/L (136-145)
--- NOTE | 2020-03-26 07:40 | NUR ---
SHIFT SUMMARY: VSS. AFEB. AAOX3. ABLE TO MAKE NEEDS KNOWN. 02 SATS WNL WHEN PT IS SITTING UPRIGHT AND RESTING. 02 15L VIA AIRVO. WEARING CPAP MOST OF THE NIGHT. PT DESATTED TO LOW 80'S HIGH 70'S WHEN HEAD OF BED LOWERED. PT COUGH PRODUCING SMALL TO MOD AMTS OF YELLOW/RED SPUTUM. LS ABSENT ON THE LEFT, CLEAR ON THE RIGHT. +3 PITTING EDEMA FROM TOES TO UPPER THIGHS. F/C PATENT AND DRAINING TO GRAVITY. NO C/O PAIN. PT REQUIRES MOD ASSIST TO MOVE TO A SITTING POSITION AT EDGE OF BED. CONT W/GENERALIZED WEAKNESS. CLEAR GEL APPEARING BM PRODUCED TONIGHT. NO ODOR. THIS IS CONSISTENT W/PREVIOUS BM. NO ACUTE CHANGES OVERNIGHT.
--- NOTE | 2020-03-26 18:26 | NUR ---
SHIFT SUMMARY- PT ALERT AND ORIENTED, 2P MAX ASSIST WITH TRANSFER WITH SIT TO STAND LIFT. PT UP INTO RECLINER TODAY. DR WASHINGTON DOES NOT WANT MORE IV BUMEX FOR THE PT. PT HAS RECIEVED IV VIBROMYACIN AND PO ACYCLOVIR. LAST DOSE WAS LATE HOLDING NEXT DOSE UNTIL 1900 THEN NEXT DOSE WILL BE ON TIME AGAIN. PT HAS A WEAK PRODUCTIVE COUGH. SUCTION ORAL CARE DONE AFTER MEALS PRIOR TO LIDOCAIN APPLICATION. PT ASSISTED BACK TO BED AND O2 SATS DROPPED TO 82%. CALLED RT VANI HE WILL SEND INSURANCE AGENT RT TO COME SEE THE PT SHORTLTY INCREASED THE FIO2 TO 45% SATS CURRENTLY 88%. WILL CTM AND PASS ON TO NIGHT RN IN BEDSIDE REPORT.
--- NOTE | 2020-03-27 00:52 | NUR ---
PATIENT STATING 92% ON AIRVO 45 L PER MINUTE. SLEEPING AT THIS TIME.
--- NOTE | 2020-03-27 03:51 | NUR ---
SHIFT SUMMARY PATIENT HAD NO ACUTE CHANGES OBSERVED. AXOX 3 AND BEDREST. TAKES MEDICATION WHOLE IN APPLE SAUCE. PICC WELLINGTON INTACT. FLUID RESTRICTIONS 1,000 mL. CBG 125. ON AIRVO 45L/MINUTE STATING 92% MANAGED BY RT. ALLY PATENT AND DRAINING. VSS/AFEBRILE. DENIES PAIN, SOB, AND N/V. CALL LIGHT IN REACH. BED IN LOWEST POSITION. WILL CONTINUE TO MONITOR UNTIL DAY SHIFT NURSE ASSUMES CARE.
[2020-03-27 05:13] LABS: BASOPHILS ABSOLUTE AUTO 0.03 K/mm3 (0.00-0.23); BASOPHILS PERCENT AUTO 1 % (0-2); EOSINOPHILS ABSOLUTE AUTO 0.24 K/mm3 (0.00-0.68); EOSINOPHILS PERCENT AUTO 6 % (0-6); Hematocrit 25.7 % (37.0-53.0); Hemoglobin 7.7 g/dL (13.5-17.5); IMMATURE GRAN ABSOLUTE AUTO 0.02 K/mm3 (0.00-0.10); IMMATURE GRAN PERCENT AUTO 1 % (0-1); LYMPHOCYTES PERCENT AUTO 12 % (21-46); MONOCYTES ABSOLUTE AUTO 0.36 K/mm3 (0.16-1.47); MONOCYTES PERCENT AUTO 8 % (4-13); Mean Corpuscular HGB 26.6 pg (26.0-34.0); Mean Corpuscular Volume 89 fL (80-100); Mean Platelet Volume 10.7 fL (9.1-12.4); NEUTROPHILS ABSOLUTE AUTO 3.15 K/mm3 (1.96-9.15); NEUTROPHILS PERCENT AUTO 73 % (41-73); Platelet Count 158 K/mm3 (150-400); RDW Standard Deviation 66.1 fL (35.1-46.3)
[2020-03-27 05:35] LABS: Albumin, Blood 1.4 g/dL (3.4-5.0); Albumin/Globulin Ratio 0.4 (0.8-1.8); Bilirubin, Total 0.8 mg/dL (0.1-1.0); Bun/Creatinine Ratio 42.2 (12.0-20.0); Calcium, Blood 8.3 mg/dL (8.5-10.1); Creatinine, Blood 1.35 mg/dL (0.60-1.20); Phosphorus, Blood 2.9 mg/dL (2.5-4.9); Potassium, Blood 3.4 mmol/L (3.5-5.5); Total Protein, Blood 5.4 g/dL (6.4-8.2)
--- NOTE | 2020-03-27 16:33 | NUR ---
SHIFT SUMMARY PT RESTING QUIETLY AT START OF SHIFT. 2P MAX ASSIST TO RECLINER AFTER BREAKFAST. PT ABLE TO STAND FOR PT, BUT NOT ABLE TO AMBULATE D/T WEAKNESS. ADMITTED FOR HF; PT VERY EDEMATOUS. PT [place] [facility] [place]ER; LIFT USED THERE AND BACK TO BED WHEN FINISHED. PT VERY WEAK AND DECONDITIONED. CANALES TO GRAVITY; PATENT. LIDOCAINE MOUTHWASH USED FOR SORES IN MOUTH. PT ON PUREE DIET AND 1L FR. LUNGS DIMINSHED T/O WITH CRACKLES IN L LOBES. VISITOR TO AT THIS TIME. CALL LT IN REACH. ABLE TO MAKE NEEDS KNOWN.
--- NOTE | 2020-03-28 04:49 | NUR ---
SHIFT SUMMARY PATIENT HAD NO ACUTE CHANGES OBSERVED. AXOX 3 AND BEDREST. TAKES MEDICATION WHOLE WITH APPLE SAUCE. FLUID RESTRICTION 1,000 mL. CBG 164. CANALES PATENT AND DRAINING TO GRAVITY. PICC WELLINGTON INTACT. ON AIRVO 30L/MIN STATING 93% MANAGED BY RT. VSS/AFEBRILE. DENIES PAIN, SOB, AND N/V. CALL LIGHT IN REACH. BED IN LOWEST POSITION. WILL CONTINUE TO MONITOR UNTIL DAY SHIFT NURSE ASSUMES CARE.
[2020-03-28 05:58] LABS: Hemoglobin 7.2 g/dL (13.5-17.5)
[2020-03-28 06:19] LABS: Albumin, Blood 1.4 g/dL (3.4-5.0); Anion Gap 3 mmol/L (6-16); Blood Urea Nitrogen 54 mg/dL (8-24); CO2, Blood 32 mmol/L (21-32); Calcium, Blood 8.2 mg/dL (8.5-10.1); Chloride, Blood 106 mmol/L (98-108); Creatinine, Blood 1.35 mg/dL (0.60-1.20); Glomerular Filtration Rate 55 (60-); Glucose, Blood 118 mg/dL (70-99); Phosphorus, Blood 2.9 mg/dL (2.5-4.9); Potassium, Blood 3.6 mmol/L (3.5-5.5); Sodium, Blood 141 mmol/L (136-145)
--- NOTE | 2020-03-28 15:36 | NUR ---
SHIFT SUMMARY PT RESTING QUIETLY AT START OF SHIFT. WOKE EASILY FOR CARE. PT REPORTS FEELING JUST A LITTLE BIT BETTER TODAY THAN YESTERDAY, THOUGH REMAINS VERY WEAK AND DECONDITIONED. PT REQUESTED TO SIT UP TO EOB FOR BREAKFAST. PT REQUIRING ALOT OF ASSIST TO GET HIS LEGS TO EOB AND DANGLE. PT THEN REPORTED BOWEL INCONTINENCE IN ATTENDS, BUT ENDED UP ONLY PASSING GAS. CANALES CATH TO GRAVITY; PATENT, BUT END OF PENIS BECOMING VERY SORE FROM TUBING. CATH CARE DONE AND ABX OINTMENT APPLIED FOR COMFORT. PT TAKEN DOWN TO IMAGING FOR CXR. DR CONTEH HERE LATER TO EXPLAIN RESULTS. SPUTUM CX ORDERED, OBTAINED AND SENT. PT COUGHING MORE TODAY. UNCLEAR OF SOURCE OF PNM, POSSIBLY EVEN ASPIRATION?? PER REPORT, PNM IS RECURRING. DR WASHINGTON IN TO SEE PT IN AM. NEW ORDERS PLACED. PT IS A&O, ABLE TO MAKE NEEDS KNOWN. CALL LT IN REACH
--- NOTE | 2020-03-29 04:35 | NUR ---
SHIFT SUMMARY PATIENT HAD NO ACUTE CHANGES OBSERVED. AXOX 3 AND BEDREST. REPORTS HE IS ABLE TO MOVE HIS LEGS IN BED THIS SHIFT VS LAST NOC SHIFT. ON AIRVO 30L/MIN STATING 93% ON CONTINUOUS PULSE OXIMETRY. CANALES PATENT AND DRAINING TO GRAVITY. CBG 174. PICC WELLINGTON INTACT. IV ABX INFUSED. VSS/AFEBRILE. DENIES PAIN, SOB, AND N/V. CALL LIGHT IN REACH. BED IN LOWEST POSITION. WILL CONTINUE TO MONITOR UNTIL DAY SHIFT NURSE ASSUMES CARE.
[2020-03-29 05:32] LABS: Hematocrit 25.2 % (37.0-53.0); Hemoglobin 7.6 g/dL (13.5-17.5); IMMATURE RETIC FRACTION 21.9 % (2.3-16.0); RETIC HGB EQUIVALENT 31.9 pg (28.20-36.60); RETICULOCYTE COUNT PERCENT 2.19 % (0.50-2.50)
[2020-03-29 08:19] LABS: Albumin, Blood 1.5 g/dL (3.4-5.0); Anion Gap 7 mmol/L (6-16); Blood Urea Nitrogen 51 mg/dL (8-24); Bun/Creatinine Ratio 39.2 (12.0-20.0); CO2, Blood 29 mmol/L (21-32); Calcium, Blood 8.4 mg/dL (8.5-10.1); Chloride, Blood 102 mmol/L (98-108); Glomerular Filtration Rate 57 (60-); Glucose, Blood 127 mg/dL (70-99); Phosphorus, Blood 2.9 mg/dL (2.5-4.9); Potassium, Blood 3.9 mmol/L (3.5-5.5); Sodium, Blood 138 mmol/L (136-145)
[2020-03-29 15:08] LABS: TYPHUS FEVER GROUP IGG <1:64 (Neg:<1:64); TYPHUS FEVER GROUP IGM <1:64 (Neg:<1:64)
--- NOTE | 2020-03-29 19:14 | NUR ---
SHIFT SUMMARY EMILIANO DENIED PAIN THIS SHIFT. STILL ON 30L/MIN AIRVO WITH 45% oxygen. INCONTINENT CLEAR MUCOUS BY RECTUM X2, THEN CONTINENT OF ONE LARGE SOFT FORMED BROWN BM IN BSC. AO2 TO BSC. FED HIMSELF WITHOUT PROBLEMS, ASP PRECAUTIONS. BLADDER SCAN SHOWED NOTHING, CANALES DRAINING WELL, BUT PT COMPLAINS OF URETHRAL PAIN. MEPILEX ON BUTTOCK AND COCCYX REPLACED. UP TO CHAIR FOR MUCH OF THE DAY. FOLLOWED 1L FLUID RESTRICTION. TOOK MEDS ONE AT A TIME IN APPLES[place]oalah. CALL LIGHT IN REACH, REPORT GIVEN TO NIGHT NURSE
--- NOTE | 2020-03-30 05:32 | NUR ---
SHIFT SUMMARY AOX4. DENIES PAIN OR N/V. DOES HAVE DYSPNEA @TIMES, WORSE WHEN TRYING TO COUGH UP MUCUS. HAD SMALL AMOUNT ARECHIGA/LIGHT BROWN SPUTUM c OCCASIONAL PRODUCTIVE COUGH. RT ATTEMPTED TO TITRATE AIRVO O2 DOWN TO 30L/MIN @35% O2, CONT PULSE OX ALARMED & SPO2 81-84% ON NEW SETTINGS, THEREFORE PT WAS INCREASED BACK TO 30L/MIN @45% O2 & SPO2 >92%. JACINDA VERY DIM & CRACKLES HEARD IN BASES OF LUNGS. VITALS STABLE. HAS +3 PITTING EDEMA IN BLE & GENERALIZED EDEMA T/O BODY. RECIEVING DIURETICS. CANALES PATENT & DRAINING, HAD 900ML URINE OUT. ORAL MUCOSA LESIONS ARE PINK, MOIST & PT STATES NO LONGER PAINFUL. CALL LIGHT IN REACH. WILL MONITOR UNTIL NEXT NURSE ASSUMES CARE.
[2020-03-30 06:06] LABS: Hematocrit 25.9 % (37.0-53.0); Hemoglobin 7.7 g/dL (13.5-17.5)
[2020-03-30 06:53] LABS: Albumin, Blood 1.5 g/dL (3.4-5.0); Anion Gap 2 mmol/L (6-16); Blood Urea Nitrogen 46 mg/dL (8-24); Bun/Creatinine Ratio 34.3 (12.0-20.0); CO2, Blood 34 mmol/L (21-32); Calcium, Blood 8.4 mg/dL (8.5-10.1); Chloride, Blood 102 mmol/L (98-108); Creatinine, Blood 1.34 mg/dL (0.60-1.20); Glomerular Filtration Rate 55 (60-); Glucose, Blood 102 mg/dL (70-99); Magnesium, Blood 1.7 mg/dL (1.6-2.4); Phosphorus, Blood 2.5 mg/dL (2.5-4.9); Potassium, Blood 4.1 mmol/L (3.5-5.5); Sodium, Blood 138 mmol/L (136-145)
--- NOTE | 2020-03-30 14:11 | NUR ---
CALLED DR AMATO'S OFFICE ON DR SANTOS'S REQUEST, THEY CALLED BACK TO OK STITCH REMOVAL FROM EMILIANO'S MOUTH. ONLY ONE STITCH STILL INTACT (THE REST CAME OUT PER PT, NONE OTHERS VISUTALIZED). LIP STITCH REMOVED WITHOUT DIFFICULTIES
--- NOTE | 2020-03-30 15:07 | NUR ---
SPOKE TO DR SANTOS ABOUT PT'S VERY SORE RED URETHRAL MEATUS. SHE ASSESSED PT AND VISUALIZED PURULENT DRAINAGE. ORDERED TOPICAL TRIPLE ANTIBIOTIC OINTMENT
--- NOTE | 2020-03-30 20:09 | NUR ---
SHIFT SUMMARY EMILIANO GOT A 2.5 HR NAP THIS MORNING, FEELING MUCH BETTER AFTER THIS. UP IN CHAIR FOR LUNCH WITH AO2 AND GAIT BELT. BM INTO BSC. URETHRAL MEATUS RED AND PURULENT DRAINAGE. DR SANTOS VISULAIZED IT, ORDERED ABX OINTMENT AND PYRIDIUM PRN. STITCHES REMOVED FROM MOUTH, OK'D PER DR AMATO. CANALES PATENT AND DRAINING. MEDS IN APPLESAUCE. 1L FLUID RESTRICTION MAINTAINED. CALL LIGHT IN REACH, REPORT GIVEN TO NIGHT NURSE
[2020-03-30 22:09] LABS: LEGIONELLA PNEUMOPHILA ABS. 1.23 OD ratio (0.00-0.90)
[2020-03-31 05:37] LABS: Hematocrit 25.5 % (37.0-53.0); Hemoglobin 7.8 g/dL (13.5-17.5)
[2020-03-31 06:02] LABS: Albumin, Blood 1.5 g/dL (3.4-5.0); Anion Gap 2 mmol/L (6-16); Blood Urea Nitrogen 40 mg/dL (8-24); Bun/Creatinine Ratio 29.4 (12.0-20.0); CO2, Blood 35 mmol/L (21-32); Calcium, Blood 8.5 mg/dL (8.5-10.1); Chloride, Blood 101 mmol/L (98-108); Creatinine, Blood 1.36 mg/dL (0.60-1.20); Glomerular Filtration Rate 54 (60-); Glucose, Blood 128 mg/dL (70-99); Magnesium, Blood 1.6 mg/dL (1.6-2.4); Phosphorus, Blood 2.7 mg/dL (2.5-4.9); Potassium, Blood 4.5 mmol/L (3.5-5.5); Sodium, Blood 138 mmol/L (136-145)
--- NOTE | 2020-03-31 06:47 | NUR ---
SHIFT SUMMARY AOX4. VSS. SPO2 DROPS TO MID 80'S c COUGHING SPELLS. HAS SMALL AMOUNT LIGHT BROWN/YELLOW SPUTUM c COUGHING. PT CURRENTLY ON 6L O2 c SPO2 >90%. JACINDA DIM & BILAT LL c CRACKLES. PT DENIES DYSPNEA @ REST, DOES REPORT FEELING MORE CONGESTED THIS AM. +2 EDEMA IN BLE, APPEARS BETTER THEN PREVIOUS NIGHT. CANALES PATENT & DRAINING, SCANT AMOUNT PURULENT DRAINAGE @ MEATUS OF PENIS, CLENSED & APPLIED ANTIBIOTIC OINTMENT PER ORDERS. HAD CHEST XRAY THIS AM. CALL LIGHT IN REACH.
--- NOTE | 2020-03-31 19:54 | NUR ---
SUMMARY- PT ALERT AND ORIENTED X4. MOTIVATED TO EXERSICE AND FOLLOW FLUID RESITICTIONS. FEARFUL OF CIRCUMSTANCES. SAT AT THE EDGE OF THE BED FOR BREAKFAST, DYSPNEA AND DESATS TO 81% ON 5L- INCREASED TEMP TO 10 L, ABOUT 3 MINUTES FOR PT TO RECOVER. PT HAS CX IN BASES AND DIM TO. FOLLOWING ASPIRATION PRECAUTIONS, NO ASP NOTED. PT USES SUCTION TO CREAR SECREATIOS, LIZBETH FROM HEALING MOUTH ULCERATIONS. NOSE WITH DRIED BLOOD, CLEANED THIS AM WITH NS AND APPLIED ABX OINT TO SCABS. OXYGEN IS AT 5L MISTED, CONT PULSE OX. TOLERATING PUREE DIET. FOLLOWS 1L FR. CANALES PATENT AND DRAINING. DIURESING WELL. MEPILEX TO COCCYX CHANGED, ULCERS APPEAR TO BE HEALING. R THIGH ULCER HEALED COMPLETELY, MIPILEX TAKEN OFF. CONT WITH LE EDEMA +2. NOTIFIED SPEECH TO COME REEVAL PT TO ENSURE HE IS NOT ASPIRATING CXR IS SHOWING INCREASED OPACITIES. LEFT MESSAGE AND NOTIFIED DAMARIS FOWLER.
--- NOTE | 2020-04-01 05:51 | NUR ---
HAT AND CAP OPENER SUMMARY PT A/O X4. SLEPT WELL TONIGHT. ONGOING 5L VIA NC IN PLACE SATTING IN THE MID 90'S. PT DOES DESAT QUICK WITH EXERTION. CONT PULSE OX IN PLACE. 3+ EDEMA IN BLE. BLE ELEVATED ON PILLOWS. 1L FLUID RESTRICTION IN PLACE. CANALES PATENT AND DRAINING TO GRAVITY. VSS.
[2020-04-01 05:55] LABS: Hematocrit 25.8 % (37.0-53.0); Hemoglobin 7.8 g/dL (13.5-17.5)
[2020-04-01 06:07] LABS: Albumin, Blood 1.5 g/dL (3.4-5.0); Anion Gap 2 mmol/L (6-16); Blood Urea Nitrogen 35 mg/dL (8-24); Bun/Creatinine Ratio 24.6 (12.0-20.0); CO2, Blood 35 mmol/L (21-32); Calcium, Blood 8.6 mg/dL (8.5-10.1); Chloride, Blood 102 mmol/L (98-108); Creatinine, Blood 1.42 mg/dL (0.60-1.20); Glomerular Filtration Rate 52 (60-); Glucose, Blood 130 mg/dL (70-99); Magnesium, Blood 1.8 mg/dL (1.6-2.4); Phosphorus, Blood 2.8 mg/dL (2.5-4.9); Potassium, Blood 4.6 mmol/L (3.5-5.5); Sodium, Blood 139 mmol/L (136-145)
--- NOTE | 2020-04-01 19:28 | NUR ---
PT RESTING IN BED AFTER DINNER. PT AND FAMILY WERE FRUSTRATED DURING SHIFT OVER CODE STAT. PAL CARE, DR. SANTOS AND DR. FERNANDES SPOKE WITH PT AND FAMILY, PT STATES HE FEELS BETTER AND LESS ANXIOUS. PT LINES ARE WNL AND RUNNING. PT MAKES NO COMPLIANTS AT THIS TIME. STAFF WILL CONT. TO MONITOR.
[2020-04-02 06:05] LABS: Hematocrit 26.1 % (37.0-53.0); Hemoglobin 7.9 g/dL (13.5-17.5)
[2020-04-02 06:22] LABS: Albumin, Blood 1.6 g/dL (3.4-5.0); Anion Gap 3 mmol/L (6-16); Blood Urea Nitrogen 35 mg/dL (8-24); Bun/Creatinine Ratio 22.6 (12.0-20.0); CO2, Blood 37 mmol/L (21-32); Calcium, Blood 8.9 mg/dL (8.5-10.1); Chloride, Blood 100 mmol/L (98-108); Creatinine, Blood 1.55 mg/dL (0.60-1.20); Glomerular Filtration Rate 47 (60-); Glucose, Blood 90 mg/dL (70-99); Magnesium, Blood 1.8 mg/dL (1.6-2.4); Phosphorus, Blood 2.8 mg/dL (2.5-4.9); Potassium, Blood 4.5 mmol/L (3.5-5.5); Sodium, Blood 140 mmol/L (136-145)
--- NOTE | 2020-04-02 07:20 | NUR ---
SHIFT SUMMARY PATIENT ALERT AND ORIENTED. HAD NO COMPLAINTS OF PAIN OR SHORTNESS OF BREATH. STATED THAT HE IS FEELING BETTER TODAY. WAS ABLE TO SLEEP WELL OVERNIGHT. PICC LINE PATENT AND FLUSHED. CANALES PATENT AND DRAINING TO GRAVITY. BED IN LOWEST POSITION WITH WHEELS LOCKED. CALL LIGHT WITHIN REACH. REPORT GIVEN TO ONCOMING RN.
[2020-04-02 14:03] LABS: Tobramycin, Random 5.5 ug/mL
--- NOTE | 2020-04-02 19:19 | NUR ---
SHIFT SUMMARY NO ACUTE CHANGES T/O SHIFT, A&Ox4, CALM AND COOPERATIVE WITH CARE. PT HAS BEEN HERE FOR APPROX A MONTH AND IS BEING DISCHARGED TO [facility] THIS EVENING. FAMILY PRESENT WHEN DISCUSSION REGARDING TRANSFER TOOK PLACE. REPORT WAS CALLED TO ABILIO @ [facility] @ APPROX 1835. PICC LINE LOOKS WNL, FLUSHES AND DRAWS BLOOD WELL. CANALES PATENT AND DRAINING. PT ON 3 L/MIN O2, WHICH IS HIS BASELINE @ HOME, SATING ABOVE 90%. PT DID BECOME SOB @ TIMES, PRIMARILY AFTER COUGHING. SUCTION AT BEDSIDE, BLOOD SPUTUM SHOWN IN CANISTER. EDEMA NOTED OF THE BLE +2 OF THE LEFT AND +3 OF THE RIGHT. PT IS IN THE PROCESS OF BEING TRANSFERED TO [facility].
--- NOTE | 2020-04-02 19:32 | NUR ---
patient was picked up by EMS at 1930; patient transported to [facility].
== END 2020-04-02 19:28 | disposition short-term general hospital (02) | DRG 871 ==
LOC: ER 20:22 → MEDS 20:23 → ICUW 20:23 → MEDS 03-05 00:23 → ICUW 03-09 12:40 → PCU 03-15 17:59 → MEDS 03-18 12:17
PROVIDERS: Emergency Medicine; Family Medicine; Internal Medicine; Internal Medicine Critical Care Medicine; Internal Medicine Hematology & Oncology; Internal Medicine Nephrology; Pharmacist; ADMIT Hospitalist
PROC: 5A09357 Assistance with Respiratory Ventilation, Less than 24 Consecutive Hours, Continuous Positive Airway Pressure (ICD-10-PCS; principal; 2020-03-09)
PROC: 02HV33Z Insertion of Infusion Device into Superior Vena Cava, Percutaneous Approach (ICD-10-PCS; 2020-03-09)
PROC: 3E033XZ Introduction of Vasopressor into Peripheral Vein, Percutaneous Approach (ICD-10-PCS; 2020-03-10)
PROC: 0CB1XZX Excision of Lower Lip, External Approach, Diagnostic (ICD-10-PCS; 2020-03-20)
DX: A41.52 Sepsis due to Pseudomonas (principal); I50.43 Acute on chronic combined systolic (congestive) and diastolic (congestive) heart failure; J96.01 Acute respiratory failure with hypoxia; R65.21 Severe sepsis with septic shock; N17.0 Acute kidney failure with tubular necrosis; J15.1 Pneumonia due to Pseudomonas; R04.2 Hemoptysis; N25.81 Secondary hyperparathyroidism of renal origin; E87.1 Hypo-osmolality and hyponatremia; J44.0 Chronic obstructive pulmonary disease with (acute) lower respiratory infection; I13.0 Hypertensive heart and chronic kidney disease with heart failure and stage 1 through stage 4 chronic kidney disease, or unspecified chronic kidney disease; K92.81 Gastrointestinal mucositis (ulcerative); M35.2 Behcet's disease; L10.0 Pemphigus vulgaris; I48.92 Unspecified atrial flutter; J81.1 Chronic pulmonary edema; Z95.0 Presence of cardiac pacemaker; Z95.1 Presence of aortocoronary bypass graft; Z87.891 Personal history of nicotine dependence; E03.9 Hypothyroidism, unspecified; Z51.5 Encounter for palliative care; Z20.828 Contact with and (suspected) exposure to other viral communicable diseases; G47.33 Obstructive sleep apnea (adult) (pediatric); D69.6 Thrombocytopenia, unspecified; I48.0 Paroxysmal atrial fibrillation; I73.9 Peripheral vascular disease, unspecified; I27.20 Pulmonary hypertension, unspecified; I25.10 Atherosclerotic heart disease of native coronary artery without angina pectoris; Z66 Do not resuscitate; N18.30 Chronic kidney disease, stage 3 unspecified; E11.22 Type 2 diabetes mellitus with diabetic chronic kidney disease; Z79.01 Long term (current) use of anticoagulants; Z79.4 Long term (current) use of insulin; I49.5 Sick sinus syndrome; E83.51 Hypocalcemia; E87.6 Hypokalemia; I25.5 Ischemic cardiomyopathy; E83.39 Other disorders of phosphorus metabolism; E88.09 Other disorders of plasma-protein metabolism, not elsewhere classified; M10.9 Gout, unspecified; K12.0 Recurrent oral aphthae; I65.29 Occlusion and stenosis of unspecified carotid artery; N32.0 Bladder-neck obstruction; N40.0 Benign prostatic hyperplasia without lower urinary tract symptoms
CPT/HCPCS: 0241U; 36415; 36569; 36600; 71045; 71046; 71250; 74150; 74176; 74230; 76770; 80048; 80053; 80069; 80200; 80202; 81001; 82330; 82550; 82607; 82728; 82746; 82803; 82947; 83520; 83540; 83550; 83605; 83735; 83880; 84100; 84132; 84145; 84153; 84443; 84484; 85014; 85018; 85025; 85027; 85045; 85397; 85610; 85651; 85730; 86160; 86225; 86235; 86256; 86713; 86757; 86790; 87070; 87077; 87186; 87205; 87385; 88305; 88312; 92526; 92610; 92611; 93005; 93010; 93288; 93308; 93970; 94640; 94660; 94668; 94760; 94762; 96374; 97110; 97112; 97162; 97166; 97530; 97535; 99285-25; A9270; A9270-GY; C1751; C8929; J0610; J0696; J0881; J1815; J1940; J2185; J2543; J2916; J2997; J3010; J3260; J3370; J3480; J7030; J7040; J7050; J7060; J7070; P9046; Q9957

== ENCOUNTER → 2021-03-26 | Outpatient (CLI) | payer OTHER ==
[~2021-03-26] MED LIST changes: +ALBU90OI INH; +ALLO300 PO; +ATOR40TA PO; +Amiodarone HCl200 MG PO; +Aspirin EC81 MG PO; +BASAGLAR K100 UNIT/1 SC; +BUME1 PO; +COLCHICINE0.6 MG PO; +ELIQUIS5 MG PO; +ENTRESTO 97 MG1 EAC3 PO; +EUTHYROX50 MCG PO; +METO100ER PO; +METO50ER PO; +NOVOLOG FL100 UNIT/3 SC; +STIOLTO RESPIMAT4 G1 INH
[2021-03-28 19:23] LABS: Protein, Urine Quantitative 5.4 mg/dL (0.0-11.9)
[2021-03-28 19:25] LABS: Creatinine Urine 64.3 mg/dL (27.00-270.00); Microalbumin, Urine Quant. 21.4 mg/L (0.000-20.000)
== END | disposition home or self-care (01) ==
LOC: LAB SHORT 08:00 → LAB 08:00 → LAB FUT 03-24 13:25
PROVIDERS: Internal Medicine Nephrology
DX: N18.30 Chronic kidney disease, stage 3 unspecified (principal); D63.1 Anemia in chronic kidney disease; E55.9 Vitamin D deficiency, unspecified; E78.00 Pure hypercholesterolemia, unspecified; R76.9 Abnormal immunological finding in serum, unspecified; R94.5 Abnormal results of liver function studies; R94.6 Abnormal results of thyroid function studies; D51.8 Other vitamin B12 deficiency anemias; D52.8 Other folate deficiency anemias; D50.9 Iron deficiency anemia, unspecified
CPT/HCPCS: 81050; 82043; 82570; 84156

== ENCOUNTER 2021-08-30 12:13 | Inpatient (IN) | payer OTHER ==
[~2021-08-30] VITALS: Ht 182.9 cm; Wt 95.1 kg
[2021-08-30] MEDS ORDERED: SILD50TA PO (15:06)
[2021-08-30] MEDS ORDERED: TAMS.4ER PO (15:06)
[2021-08-30 16:14] LABS: Base Excess Venous -0.2 mmol/L; Bicarbonate Venous 23.9 mmol/L (24.0-30.0); PCO2 Venous 41.1 mmHg (38-42); pH Blood Venous 7.39 (7.34-7.37)
[2021-08-30] MEDS ORDERED: SPIR25 PO (17:45)
[2021-08-30] MEDS ORDERED: Vitamin D1000 UNI1 PO (17:46)
--- NOTE | 2021-08-30 18:51 | NUR ---
ADMIT NOTE RECEIVED REPORT FROM JANETH NEWBY IN ED. PT TO ROOM VIA GURNEY, TRANSFER WITH 2 PERSON ASSIST TO BED. PT AND SPOUSE ORIENTED TO ROOM; EDUATED ON FALL RISK AND CALL LIGHT USE. PT REPORTS SOB, DIARRHEA AND WEAKNESS OVER THE LAST COUPLE OF DAYS. PT A&Ox4, APPEARS TO BE SLEEPING INTERMITTENTLY. PT REPORTS EPIGASTRIC PAIN AND NEW NECK STIFFENING THAT STARTED THIS EVENING. PT SOB WITH MOVEMENT, SPO2 ON 4L O2 VIA NA AT 89-91, TITTRATED TO 5L O2 VIA NC >92%, LS DIM T/O FINE CRACKELS NOTED BILATERAL BASES, TACHYPNIC, PRODUCTIVE COUGH NOTED, WITH THICK YELLOW SPUTUM WITH PINK/RED STREAKS, SPUTUM SAMPLE COLLECTED AND SENT PER ORDERS. PT DENIES CHEST PAIN, NAUSEA, DIZZINESS AND NUMB/TINGLING. PT TELE SINUS 60-70'S, BP STABLE, PT HAS PACEMAKER. ABD SOFT, NONTENDER, REPORTING DIARRHEA x3 DAYS. OTHER VSS. NO OTHER ACUTE CHANGES NOTED. REPORT GIVEN TO ONCOMING RN.
[2021-08-31 06:52] LABS: Source, Urine Condom Cath
[2021-08-31 07:02] LABS: Appearance, Urine Clear (Clear); Bilirubin, Urine Neg (Neg); Blood, Urine 2+ (Neg); Color, Urine Yellow (P-Yellow); Glucose Qualitative, Urine Neg (Neg); Ketones, Urine Neg (Neg); Leukocyte Esterase, Urine Neg (Neg); Nitrite, Urine Neg (Neg); Protein, Urine 2+ (Neg); Specific Gravity, Urine 1.015 (1.003-1.022); Urobilinogen, Urine NORM (Normal)
[2021-08-31 07:29] LABS: Amorphous Mod (0-Heavy); Bacteria Few /hpf; Squamous Epithelial Cells Few /hpf (Few); White Blood Cells, Urine 0-2 /hpf (0-5)
[2021-08-31 09:19] LABS: Hematocrit 32.5 % (37.0-53.0); Hemoglobin 10.6 g/dL (13.5-17.5); Mean Corpuscular HGB 28.2 pg (26.0-34.0); Mean Corpuscular HGB Conc 32.6 g/dL (31.5-36.5); Mean Corpuscular Volume 86 fL (80-100); Platelet Count 95 K/mm3 (150-400); RDW Coefficient Variation 17.3 % (11.7-14.2); Red Blood Cell Count 3.76 M/mm3 (4.30-5.90); White Blood Cell Count 9.29 K/mm3 (4.00-11.30)
[2021-08-31 09:20] LABS: SEG NEUTROPHILS PERCENT MAN 74 % (41-73)
[2021-08-31 09:21] LABS: BAND PERCENT MAN 24 % (0-8); LYMPHOCYTES ABSOLUTE MAN 0.09 K/mm3 (0.84-5.20); LYMPHOCYTES PERCENT MAN 1 % (21-46); MONOCYTES ABSOLUTE MAN 0.09 K/mm3 (0.16-1.47); MONOCYTES PERCENT MAN 1 % (4-13)
[2021-08-31 09:58] LABS: Alanine Aminotransfer (ALT/SGP 235 U/L (12-78); Albumin, Blood 2.3 g/dL (3.4-5.0); Albumin/Globulin Ratio 0.7 (0.8-1.8); Alk Phos 74 U/L (50-136); Aspartate Aminotrans (AST/SGOT 264 U/L (12-37); Bilirubin, Total 1.6 mg/dL (0.1-1.0); Blood Urea Nitrogen 81 mg/dL (8-24); Bun/Creatinine Ratio 30.5 (12.0-20.0); CO2, Blood 23 mmol/L (21-32); Calcium, Blood 8.4 mg/dL (8.5-10.1); Creatinine, Blood 2.66 mg/dL (0.60-1.20); Globulin, Blood 3.4 g/dL (2.2-4.0); Glomerular Filtration Rate 24 (60-); Glucose, Blood 124 mg/dL (70-99); Magnesium, Blood 1.9 mg/dL (1.6-2.4); Potassium, Blood 3.9 mmol/L (3.5-5.5); Total Protein, Blood 5.7 g/dL (6.4-8.2); Vancomycin, Random 13.7 ug/mL
[2021-08-31 10:25] LABS: Anion Gap 8 mmol/L (6-16); Chloride, Blood 101 mmol/L (98-108); Sodium, Blood 134 mmol/L (136-145)
--- NOTE | 2021-08-31 10:38 | NUR ---
CARE ASSUMPTION THIS RN ASSUMED CARE AT 0700 FROM BRADLEY FOWLER. VSS. TEMPERATURE 101.2. PATIENT IS ALERT AND ORIENTED X4., BUT IS SLEEPY. NEURO INTACT. PERRLA. PATIENT REPORTS NUMBNESS AND TINGLING TO TOES BILATERALLY AND STATES THIS IS HIS BASELINE. PATIENT REPORTS NO PAIN. PATIENT REPORTS NO CHEST PAIN. STRONG RADAIL PULSES BILATERALLY. CAP RFILL <3SECONDS. PATIENT REPORTS SHORTNESS OF BREATH WITH EXERTION. LUNG SOUNDS DIM. ABD SOFT NONTENDER. SKIN IS CLEAN DRY AND INTACT. PATIENT HAS A TEMP CANALES IN PLACE DRAINING WITH GRAVITY. PATIENT HAS ICE PACKS TO HIS ARMS AND GROIN AND JUST RECEIVED TYELNOL TO HELP WITH THE FEVER INCREASE TO 102. PATIENT CALLS WHEN NEEDING TO USE TH BEDPAN. PATIENT FAMILY IS AT BESIDE. MD CALDERON WAS IN TO SEE THE PATIENT THIS AM AND WENT OVER THE PLAN OF CARE WITH THE PATIENT. THE PATIENT AND FAMILY VERABLIZED UNDERSTANDING OF THE PLAN OF CARE. THEY HAD NO QUESTIONS AT THIS TIME. CALL LIGHT IS WITHIN REACH AND BED IN LOWEST POSITION. WILL CONTINUE TO MONITOR AND PROVIDE CARE.
--- NOTE | 2021-08-31 17:29 | NUR ---
SHIFT SUMMARY PATIENT NEURO REMAINS INTACT. VSS. AFRIBLE AT 102.2 CURRENTLY. PATIENT HAS COOLING BLANKET IN PLACE AND IS SET FOR 99.9 FOR TEMPERATURE. THIS RN IS MONITORING THE TEMPERATURE CLOSELY. PATIENT WHEN COUGHING HAS SPUTUM THAT IS PINK TINGED AND IS THICK. PATIENT STATES THIS HAS BEEN ONGOING FOR FIVE DAYS. PATIENT HAS HAD FAMILY AT BEDSIDE ON AND OFF THROUGHOUT THE DAY. GOAL IS TO DECREASE PATIENTS TEMPERATURE. BED IS IN LOWEST POSITION. NO ACUTE CHANGES THIS SHIFT. WILL CONITNUE TO [facility] AND PROVIDE CARE UNTIL HAND OFF WITH NEXT SHIFT.
[2021-09-01 03:46] LABS: Hematocrit 29.4 % (37.0-53.0); Hemoglobin 9.6 g/dL (13.5-17.5); Mean Corpuscular HGB 28.1 pg (26.0-34.0); Mean Corpuscular HGB Conc 32.7 g/dL (31.5-36.5); Mean Corpuscular Volume 86 fL (80-100); Mean Platelet Volume 12.4 fL (9.1-12.4); Platelet Count 112 K/mm3 (150-400); RDW Coefficient Variation 17.2 % (11.7-14.2); RDW Standard Deviation 53.9 fL (35.1-46.3); Red Blood Cell Count 3.42 M/mm3 (4.30-5.90); White Blood Cell Count 7.59 K/mm3 (4.00-11.30)
[2021-09-01 04:19] LABS: Alanine Aminotransfer (ALT/SGP 238 U/L (12-78); Albumin, Blood 2.1 g/dL (3.4-5.0); Albumin/Globulin Ratio 0.7 (0.8-1.8); Alk Phos 69 U/L (50-136); Anion Gap 9 mmol/L (6-16); Aspartate Aminotrans (AST/SGOT 398 U/L (12-37); Bilirubin, Total 1.6 mg/dL (0.1-1.0); Blood Urea Nitrogen 95 mg/dL (8-24); Bun/Creatinine Ratio 32.3 (12.0-20.0); CO2, Blood 26 mmol/L (21-32); Calcium, Blood 8.1 mg/dL (8.5-10.1); Chloride, Blood 99 mmol/L (98-108); Creatinine, Blood 2.94 mg/dL (0.60-1.20); Globulin, Blood 3.2 g/dL (2.2-4.0); Glomerular Filtration Rate 21 (60-); Glucose, Blood 109 mg/dL (70-99); Potassium, Blood 3.6 mmol/L (3.5-5.5); Sodium, Blood 134 mmol/L (136-145); Thyroxine (T4) 14.4 ug/dL (4.5-12.1); Total Protein, Blood 5.3 g/dL (6.4-8.2); Vancomycin, Random 18.7 ug/mL
[2021-09-01 04:42] LABS: BAND PERCENT MAN 10 % (0-8); BASOPHILS PERCENT MAN 0 % (0-2); EOSINOPHILS ABSOLUTE MAN 0.07 K/mm3 (0.00-0.68); EOSINOPHILS PERCENT MAN 1 % (0-6); LYMPHOCYTES ABSOLUTE MAN 0.15 K/mm3 (0.84-5.20); LYMPHOCYTES PERCENT MAN 2 % (21-46); MONOCYTES ABSOLUTE MAN 0.15 K/mm3 (0.16-1.47); MONOCYTES PERCENT MAN 2 % (4-13); NEUTROPHILS ABSOLUTE MAN 7.21 K/mm3 (1.96-9.15); SEG NEUTROPHILS PERCENT MAN 85 % (41-73); TOTAL CELLS COUNTED 100
--- NOTE | 2021-09-01 06:02 | NUR ---
SHIFT SUMMARY ASSUMED CARE OF PT AT 1900. PT IS A/OX3. HEART SOUNDS REGULAR, TELE SHOWED PACER SPIKES BUT NOT COMPLETLEY PACED. LUNG SOUNDS VERY DIMINISHED WITH FINE CRACKLES AT THE BASES. PT WORE 6L NC AND 6L BLEED IN TO CPAP. PT CANALES DRAINING DARK HORACIO URINE. PT HAD ON COOLING BLANKET UNTIL ABOUT 2100 WHEN HE TOUGHED 98.9. PT TEMP INCREASED TO 100.5 BEFORE MORE TYLENOL COULD BE GIVEN, PT FEVER BROKE AROUND 0600 THIS AM TO 99.8. PT SLEPT WELL. NO NEW COMPLAINTS, STATES HES STARTING TO FEEL A LITTLE BETTER.
[2021-09-01 11:01] LABS: Percent Saturation 7.6 % (20.0-50.0)
--- NOTE | 2021-09-01 17:17 | NUR ---
SUMMARY: Neuro: Answers questions, follows commands, verbalizes needs. Pleasant and cooperative with care. PERRL. At baseline neuro. Musculoskeletal: Repositions with verbal cues and one person assist. Has refused last few repositions, however. Pt stood with physical therapy today. Recommonded 2 person max assist for transfers. Respiratory: Lungs clear, dim in bases. Pt has cough, productive with tenactious white and blood streaked sputum. Noted pending sputum culture. Currently on 7 LPM via high flow; humidified. Cardiac: Heart rhythm as charted in shift assessment. Rate 70s per monitor. BP stable. Edema to RLE unchanged- pt states the unilateral edema is typical for him. Noted that pt takes eliquis at home. GI: Pt states poor appetite. One liquid BM this shift. Plan to obtain specimen during next bowel movement. Normal BT. Abd is soft and not tender on palpation. : Angi urine output with sediment per rodrigues. Less than 500 mL urine output this shift. Catheter flushed several times to ensure patency. Skin: Unchanged from initial assessment. Psychosocial: Pt's spouse at bedside for majority of shift. States desire to spend the night. Discussed current visitation policy.
[2021-09-02 04:26] LABS: Hematocrit 28.3 % (37.0-53.0); Hemoglobin 9.5 g/dL (13.5-17.5); Mean Corpuscular HGB 28.3 pg (26.0-34.0); Mean Corpuscular HGB Conc 33.6 g/dL (31.5-36.5); Mean Corpuscular Volume 84 fL (80-100); Mean Platelet Volume 10.6 fL (9.1-12.4); Platelet Count 98 K/mm3 (150-400); RDW Coefficient Variation 17.2 % (11.7-14.2); RDW Standard Deviation 53.1 fL (35.1-46.3); Red Blood Cell Count 3.36 M/mm3 (4.30-5.90); White Blood Cell Count 7.29 K/mm3 (4.00-11.30)
[2021-09-02 04:43] LABS: Alanine Aminotransfer (ALT/SGP 260 U/L (12-78); Albumin, Blood 1.9 g/dL (3.4-5.0); Albumin/Globulin Ratio 0.6 (0.8-1.8); Alk Phos 84 U/L (50-136); Anion Gap 10 mmol/L (6-16); Aspartate Aminotrans (AST/SGOT 560 U/L (12-37); Bilirubin, Total 1.8 mg/dL (0.1-1.0); Blood Urea Nitrogen 112 mg/dL (8-24); Bun/Creatinine Ratio 31.8 (12.0-20.0); CO2, Blood 23 mmol/L (21-32); Chloride, Blood 98 mmol/L (98-108); Creatinine, Blood 3.52 mg/dL (0.60-1.20); Globulin, Blood 3.3 g/dL (2.2-4.0); Glomerular Filtration Rate 17 (60-); Glucose, Blood 128 mg/dL (70-99); Potassium, Blood 3.2 mmol/L (3.5-5.5); Sodium, Blood 131 mmol/L (136-145); Total Protein, Blood 5.2 g/dL (6.4-8.2); Vancomycin, Random 23.7 ug/mL
[2021-09-02 04:58] LABS: BAND PERCENT MAN 6 % (0-8); BASOPHILS PERCENT MAN 0 % (0-2); EOSINOPHILS ABSOLUTE MAN 0.21 K/mm3 (0.00-0.68); EOSINOPHILS PERCENT MAN 3 % (0-6); LYMPHOCYTES ABSOLUTE MAN 0.14 K/mm3 (0.84-5.20); LYMPHOCYTES PERCENT MAN 2 % (21-46); MONOCYTES ABSOLUTE MAN 0.14 K/mm3 (0.16-1.47); MONOCYTES PERCENT MAN 2 % (4-13); NEUTROPHILS ABSOLUTE MAN 6.77 K/mm3 (1.96-9.15); SEG NEUTROPHILS PERCENT MAN 87 % (41-73); TOTAL CELLS COUNTED 100
--- NOTE | 2021-09-02 05:27 | NUR ---
SHIFT SUMMARY NO ACUTE CHANGES THIS SHIFT. AXO. BBB 1 DEGREE WITH PACEMAKER. DIASTOLIC BP LOW IN THE 40'S. SBP NORMAL. ON 7LNC HIFLOW. COPIOUS WHITE RED STREAKED SPUTUM THAT PATIENT HAS BEEN SELF SUCTIONING. PT HAD CLEAR JELLY LIKE STOOL THIS SHIFT, MATCHED THE DESCRIPTION THIS RN RECEIVED IN REPORT FROM [facility], STOOL SAMPLE SENT TO LAB. CANALES PATENT AND DRAINING. PT BEING TRNED BY STAFF. REDNESS TO SACRUM NOTED, BLANCHABLE, NON OPEN. PT SLIGHTLY FEBRILE THIS SHIFT DESPITE TYLENOL AND ONLY A SHEET OVER PT. OTHERWISE, PT RESTING IN BED. BED ALARMON. CALL LIGHT WITHIN REACH.
--- NOTE | 2021-09-02 09:31 | NUR ---
CARE ASSUMPTION THIS RN ASSUMED CARE FROM R[place] FOWLER. VSS. SOFT BP THIS MORNING AND THIS RN NOTIFED MD WASHINGTON OF IT. PATIENT RECEIVING ONE TIME FLUID BOLUS. PATIENT IS ALERT AND ORIENTED X4. PERRLA. NEURO IS INTACT. PATIENT USES CALL LIGHT APPROPTIATELY. SPO2 >90% ON 7L HIGHFLOW NC. LUNG SOUNDS CLEAR/DIM. ABD SOFT NONTENDER. PATIENT REPORTS NO CHEST PAIN. STRONG PULSES. NO EDEMA NOTED. PATIENT REPORTS NO PAIN. SEE SHIFT ASSESSMENT FOR FULL DETAILS. PATIENT FAMILY AT BEDSIDE. PATIENT UPDATED ON PLAN OF CARE. CALL LIGHT WITHIN REACH AND BED IN LOWEST POSITION. WILL CONTINUE TO MONITOR AND PROVIDE CARE.
[2021-09-02 09:52] LABS: Adenovirus F 40/41 Not Detected (NOT DETECT); Astrovirus Not Detected (NOT DETECT); Campylobacter Sp Not Detected (NOT DETECT); Cryptosporidium Not Detected (NOT DETECT); Cyclospora Cayetanensis Not Detected (NOT DETECT); E. Coli O157 Not Detected (NOT DETECT); Entamoeba Histolytica Not Detected (NOT DETECT); Enteroaggregative E. coli-EAEC Not Detected (NOT DETECT); Enteropathogenic E. coli-EPEC Not Detected (NOT DETECT); Enterotoxigenic E. coli-ETEC Not Detected (NOT DETECT); Giardia Lamblia Not Detected (NOT DETECT); Norovirus GI/GII Not Detected (NOT DETECT); Plesiomonas Shigelloides Not Detected (NOT DETECT); Rotavirus A Not Detected (NOT DETECT); Salmonella Sp Not Detected (NOT DETECT); Sapovirus Not Detected (NOT DETECT); Shiga Toxin-prod E. coli-STEC Not Detected (NOT DETECT); Shigella/Enteroin E. coli-EIEC Not Detected (NOT DETECT); Vibrio Cholerae Not Detected (NOT DETECT); Vibrio Sp Not Detected (NOT DETECT); Yersinia Enterocolitica Not Detected (NOT DETECT)
--- NOTE | 2021-09-02 17:07 | NUR ---
SHIFT SUMMARY/TRANSFER TO ICU PATIENT BLOOD PRESSURE HAS BEEN SOFT THROUGHOUT THE DAY. PATIENT RECEIVED 500MLS NS IV BOLUS THIS AM TO HELP IMPROVE BLOOD PRESSURE. BLOOD PRESSURE STILL REMAINED SOFT AND INFOMRED MD. THE PLAN WAS TO WATCH TO SEE IF IT WOULD IMPROVE AND IF NOT THEN TRANSFER TO ICU. PATIENT HAS HAD MINIMAL OUTPUT THIS SHIFT, ABOUT 100ML IN THE BAG, THIS RN DID NOT EMPTY THE BAG BEFORE TRANSFERING TO ICU. PATIENT RECEIVED 500ML FLUID BOLUS PRIOR TO GOING TO ICU. PATIENT BLOOD PRESSURE DID IMPROVE. PATIENT FAMILY UPDATED ON PATIENT TRANSFERING TO ICU DUE TO SOFT BLOOD PRESSURE. THIS RN GAVE BEDSIDE REPORT TO PRESCHOOL ADVISER. ALL OF PATIENT BELONGINGS WITH PATIENT WHEN TRANSFERING TO ICU.
--- NOTE | 2021-09-02 19:38 | NUR ---
SUMMARY Assumed care of pt upon arrival to ICU 6 from PCU 19 at 1520. Transferred to higher level of care due to hypotension. Pt had received one 500 mL fluid bolus prior and another 500 mL bolus was in progress when pt arrived. After completion of bolus, BP stable and no additional intervention required. Levophed at bedside. Pt A&O x 4. Answers questions. Follows commands. Verbalizes needs. Pleasant and cooperative with care. Pt on 9 LPM humidified and high flow NC. HR 60s, sinus with occasional pacemaker spikes. 100 mL urine output this shift. No BM. Dr Mcgowan consulted for continued management of care.
--- NOTE | 2021-09-02 22:07 | NUR ---
ASSUMED CARE AT 1900 PATIENT IS ALERT AND ORIENTED X4. WEAKNESS T/O. 02 SATS 95% ON 9L VIA NC AT START OF SHIFT, TITRATING DOWN, NOW AT 6L HFNC. CPAP AT NIGHT WHILE SLEEPING. LS CLEAR/DIMINISHED. HR PACED, 60s. BP HYPOTENSIVE, DR. CALLOWAY AWARE, MAINTAIN MAP >55, ALBUMIN BEING GIVEN AND FLUIDS STARTED AT 60MLS/HR. LASIX ALSO GIVEN DUE TO FLUID VOLUME AND MINIMAL URINE OUTPUT. TEMP CANALES PATENT AND DRAINING HORACIO YELLOW TO GRAVITY. REPOSITIONED AND CATH CARE COMPLETE. SEE SHIFT ASSESSMENT FOR MORE INFORMATION.
[2021-09-03 03:30] LABS: BASOPHILS ABSOLUTE AUTO 0.01 K/mm3 (0.00-0.23); BASOPHILS PERCENT AUTO 0 % (0-2); EOSINOPHILS ABSOLUTE AUTO 0.19 K/mm3 (0.00-0.68); EOSINOPHILS PERCENT AUTO 3 % (0-6); Hematocrit 24.6 % (37.0-53.0); Hemoglobin 8.1 g/dL (13.5-17.5); IMMATURE GRAN PERCENT AUTO 1 % (0-1); LYMPHOCYTES ABSOLUTE AUTO 0.24 K/mm3 (0.84-5.20); LYMPHOCYTES PERCENT AUTO 3 % (21-46); MONOCYTES ABSOLUTE AUTO 0.23 K/mm3 (0.16-1.47); MONOCYTES PERCENT AUTO 3 % (4-13); Mean Corpuscular HGB 27.6 pg (26.0-34.0); Mean Corpuscular HGB Conc 32.9 g/dL (31.5-36.5); Mean Corpuscular Volume 84 fL (80-100); Mean Platelet Volume 12.3 fL (9.1-12.4); NEUTROPHILS ABSOLUTE AUTO 6.39 K/mm3 (1.96-9.15); NEUTROPHILS PERCENT AUTO 89 % (41-73); Platelet Count 87 K/mm3 (150-400); RDW Coefficient Variation 17.2 % (11.7-14.2); RDW Standard Deviation 52.6 fL (35.1-46.3); Red Blood Cell Count 2.93 M/mm3 (4.30-5.90); White Blood Cell Count 7.16 K/mm3 (4.00-11.30)
[2021-09-03 03:57] LABS: Albumin, Blood 2.2 g/dL (3.4-5.0); Albumin/Globulin Ratio 0.8 (0.8-1.8); Bilirubin, Total 1.5 mg/dL (0.1-1.0); Calcium, Blood 7.5 mg/dL (8.5-10.1); Creatinine, Blood 3.74 mg/dL (0.60-1.20); Globulin, Blood 2.8 g/dL (2.2-4.0); Magnesium, Blood 2.2 mg/dL (1.6-2.4); Phosphorus, Blood 5.4 mg/dL (2.5-4.9); Potassium, Blood 3.6 mmol/L (3.5-5.5)
--- NOTE | 2021-09-03 05:28 | NUR ---
SHIFT SUMMARY PATIENT REMAINS ALERT AND ORIENTED X4. 02 SATS 95% ON 5L VIA NC. HR PACED AT 60s, BP STABLE WITH MAP IN THE 60s. CANALES PATENT AND DRAINING TO GRAVITY, 200 MLS OUT THIS SHIFT. PATIENT REPOSIITIONED Q2 HOURS. CALL ISAIAS IN REACH.
--- NOTE | 2021-09-03 07:30 | NUR ---
ASSUMED CARE: PT A&OX4 AT TIME OF BEDSIDE REPORT. PT SATTING >95% O2 AT 5LPM HFNC, PACED RHYTHM IN 60'S. IVF RUNNING AT 60ML/HR, CANALES PATENT AND DRAINING TO GRAVITY. CALL LIGHT WITHIN REACH
--- NOTE | 2021-09-03 09:00 | NUR ---
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
--- NOTE | 2021-09-03 10:54 | NUR ---
TRANSFER NOTE: PT WAS TRANSPORTED VIA BED TO PCU 19. PT WAS CONNECTED TO TELE, 5LPM O2 VIA HFNC DURING TRANSFER AND WAS RECEIVED BY PRIMARY RN.
--- NOTE | 2021-09-03 12:07 | NUR ---
CARE ASSUMPTION THIS RN ASSUMED CARE FROM DRILL RUNNER AT [id number]. THIS RN RECEIVED REPORT FROM DRILL RUNNER PRIOR TO PATIENT BEING TRANSFERD OVER. PATIENT IS ALERT AND ORIENTED X4. VSS. SPO2 >90% ON 5L NC. PATIENT NEURO IS INTACT. PERRLA. LUNG SONDS CLEAR/DIM. PATIENT REPROTS NO CHEST PAIN, PAIN, OR SHORTNESS OF BREATH. STRONG RADIAL PULSES. CAP REFILL <3SECONDS. ABD SOFT NONTENDER. PATIENT BOTTOM HAS SOME REDDNESS AND IS REPOSITIONED EVERY TWO HOURS TO HELP PREVENT SKIN BREAKDOWN. PATIENT SUCTIONS HIMSELF NEEDED. PATIENT USES CALL LIGHT APPROPRITATELY. CALL LIGHT WITHIN REACH AND BED IN LOWEST POSITION. WILL CONTINUE TO MONITOR AND PROVIDE CARE.
--- NOTE | 2021-09-03 18:07 | NUR ---
SHIFT SUMMARY PATIENT NEURO REMAINS INTACT. VSS. TELE PACED AT 60 WITH UNERLYING RHYTHM AT AFIB. PATIENT HAS HAD NO ACUTE CHANGES THIS SHIFT. SEE I&OS FOR INPUT AND OUTPUT. PATIENT USES CALL LIGHT APPROPRIATELY. PATIENT HAS HAD A MINIMAL APPIETE TODAY AND EATEN LESS THAN 50% OF HIS FOOD FOR EACH OF HIS MEALS. THIS RN ENCOURGED PATIENT TO EAT MORE, BUT EAT WHAT HE CAN AND IF HE WANTED SOMETHING ELSE. PATIENT IS TRYING TO EAT HIS FRUIT, ICE CREAM, AND DINNER ROLL. CALL LIGHT WITHIN REACH AND BED IN LOWEST POSITION. REPOSTIONED EVERY 2 HOURS. WILL CONITNUE TO MONITOR AND PROVIDE CARE UNTIL NEXT SHIFT.
[2021-09-04 03:40] LABS: BASOPHILS ABSOLUTE AUTO 0.02 K/mm3 (0.00-0.23); BASOPHILS PERCENT AUTO 0 % (0-2); EOSINOPHILS ABSOLUTE AUTO 0.13 K/mm3 (0.00-0.68); EOSINOPHILS PERCENT AUTO 2 % (0-6); Hematocrit 27.3 % (37.0-53.0); IMMATURE GRAN ABSOLUTE AUTO 0.13 K/mm3 (0.00-0.10); IMMATURE GRAN PERCENT AUTO 2 % (0-1); LYMPHOCYTES ABSOLUTE AUTO 0.18 K/mm3 (0.84-5.20); LYMPHOCYTES PERCENT AUTO 2 % (21-46); MONOCYTES ABSOLUTE AUTO 0.34 K/mm3 (0.16-1.47); MONOCYTES PERCENT AUTO 4 % (4-13); Mean Corpuscular HGB 27.6 pg (26.0-34.0); Mean Corpuscular Volume 84 fL (80-100); Mean Platelet Volume 11.9 fL (9.1-12.4); NEUTROPHILS ABSOLUTE AUTO 8.12 K/mm3 (1.96-9.15); NEUTROPHILS PERCENT AUTO 91 % (41-73); Platelet Count 92 K/mm3 (150-400); RDW Coefficient Variation 17.3 % (11.7-14.2); RDW Standard Deviation 53.2 fL (35.1-46.3); Red Blood Cell Count 3.26 M/mm3 (4.30-5.90); White Blood Cell Count 8.92 K/mm3 (4.00-11.30)
[2021-09-04 04:05] LABS: Alanine Aminotransfer (ALT/SGP 216 U/L (12-78); Albumin, Blood 2.3 g/dL (3.4-5.0); Albumin/Globulin Ratio 0.8 (0.8-1.8); Alk Phos 162 U/L (50-136); Anion Gap 15 mmol/L (6-16); Aspartate Aminotrans (AST/SGOT 461 U/L (12-37); Bilirubin, Direct 1.4 mg/dL (0.0-0.3); Bilirubin, Indirect 0.5 mg/dL (0.1-0.7); Bilirubin, Total 1.9 mg/dL (0.1-1.0); Blood Urea Nitrogen 133 mg/dL (8-24); Bun/Creatinine Ratio 35.4 (12.0-20.0); CO2, Blood 19 mmol/L (21-32); CPK Creatine Kinase 110 U/L (39-308); Calcium, Blood 7.8 mg/dL (8.5-10.1); Chloride, Blood 98 mmol/L (98-108); Creatinine, Blood 3.76 mg/dL (0.60-1.20); Glomerular Filtration Rate 16 (60-); Glucose, Blood 135 mg/dL (70-99); Phosphorus, Blood 6.8 mg/dL (2.5-4.9); Potassium, Blood 3.7 mmol/L (3.5-5.5); Sodium, Blood 132 mmol/L (136-145); Total Protein, Blood 5.3 g/dL (6.4-8.2); Uric Acid, Blood 7.3 mg/dL (3.5-7.2)
--- NOTE | 2021-09-04 06:22 | NUR ---
SHIFT SUMMARY ASSUMED CARE OF PT AT 1900. PT IS A/OX4. HEART SOUNDS IRREGULAR, TELE SHOWS AFIB. LUNG SOUNDS DIMINISHED. PT COUGHED UP RED SPUTUM T/O THE NIGHT, SELF SUCTIONING. PT TITRATED TO 4L NC THIS AM. CATHETER DRAINING HORACIO URINE. PT ALSO HAS BLEED AT THE MEATUS, AND C/O PAIN ON HIS PENIS. PT STILL IS HAVING CLEAR STOOLS. INCONTINENT.PT REQUESTED TO SIT ON THE SIDE OF THE BED THIS AM, PT DID WELL BUT FELL BACK ON BED AFTER GETTING FATIGUED. PT EXPRESSES CONCERN FOR STAYING MULTIPLE WEEKS LIKE THE LAST ADMISSION.
--- NOTE | 2021-09-04 09:50 | NUR ---
CARE ASSUMPTION THIS RN ASSUMED CARE FROM ANDRÉS RN AT 0700. VSS. SPO2 >90% ON 4LNC. TELE PACED UNDERLYING AFIB AT 71. NEURO IS INTACT. ALERT AND OREINTED X4. PERRLA. PATIENT REPORTS NO CHEST PAIN. STRONG RADAIL PULSES. FAINT PEDIS. NO EDEMA. PATIENT REPORTS NO SHORTNESS OF BREATH. DIM LUNG SOUNDS. PATIENT HAS RIGHT LOWER INTERCOSTAL DISCOMFORT FROM COUGHING. ABD IS TENDER WITH PALPATION MILD DISTENTION AND HYPOACTIVE BOWEL TONES. COCCYX IS RED AND PATIENT IS REPOSITIONED EVERY TWO HOURS TO PREVENT SKIN BREAKDOWN. SEE SHIFT ASSESSMENT FOR FURTHER DETAILS. MD ARMANDO IN TO SEE PATIENT THIS AM AND ORDERED SODIUM BICARB DUE TO LOW SODIUM LEVELS. THIS RN PERFORM RANGE OF MOTION THIS AM WITH THE PATIENT. PATIENT PERFOMED OWN ORAL CARE. PATIENT CALLS TO MAKE HIS NEEDS KNOWN. CALL LIGHT IS WITHIN REACH AND BED IN LOWEST POSITION. FAMILY AT BEDSIDE. WILL CONTINUE TO MONITOR AND PROVIDE CARE.
--- NOTE | 2021-09-04 11:41 | NUR ---
UPDATE NOTE MD WASHINGTON IN TO SEE PATIENT. AN ORDER FOR A 500MLS BOLUS WAS ORDER. THIS RN HUNG THE FLUIDS AND THE BOLUS IS INFUSING. LUNG SOUNDS DIM AND NO EDEMA UPON REASSESSMENT. PATIENT REPOSITIONED. WILL CONTINUE TO MONITOR AND PROVIDE CARE. CALL LIGHT WITHIN REACH.
--- NOTE | 2021-09-04 17:47 | NUR ---
SHIFT SUMMARY PATIENT NEURO REMAINS INTACT. PATIENT HAS BEEN SLEEPING ON AND OFF THROUGHOUT THE DAY. PATIENT HAS BEEN REPOSITIONED EVERY TWO HOURS. IS AT BEDSIDE. NO ACUTE CHANGES THIS SHIFT. VSS TELE PACED AFIB 60-80S. SPO2 >90% ON 4L HF NC. CALL LIGHT WITHIN REACH AND BED IN LOWEST POSITION. WILL CONTINUE TO MONITOR AND PROVIDE CARE UNTIL HAND OFF WITH NEXT SHIFT.
[2021-09-05 03:54] LABS: BASOPHILS ABSOLUTE AUTO 0.01 K/mm3 (0.00-0.23); BASOPHILS PERCENT AUTO 0 % (0-2); EOSINOPHILS ABSOLUTE AUTO 0.16 K/mm3 (0.00-0.68); EOSINOPHILS PERCENT AUTO 2 % (0-6); Hematocrit 26.6 % (37.0-53.0); Hemoglobin 8.9 g/dL (13.5-17.5); IMMATURE GRAN ABSOLUTE AUTO 0.14 K/mm3 (0.00-0.10); IMMATURE GRAN PERCENT AUTO 2 % (0-1); LYMPHOCYTES ABSOLUTE AUTO 0.26 K/mm3 (0.84-5.20); LYMPHOCYTES PERCENT AUTO 3 % (21-46); MONOCYTES PERCENT AUTO 5 % (4-13); Mean Corpuscular HGB 27.5 pg (26.0-34.0); Mean Corpuscular HGB Conc 33.5 g/dL (31.5-36.5); Mean Corpuscular Volume 82 fL (80-100); NEUTROPHILS ABSOLUTE AUTO 8.28 K/mm3 (1.96-9.15); NEUTROPHILS PERCENT AUTO 89 % (41-73); Platelet Count 110 K/mm3 (150-400); RDW Coefficient Variation 16.8 % (11.7-14.2); Red Blood Cell Count 3.24 M/mm3 (4.30-5.90); White Blood Cell Count 9.35 K/mm3 (4.00-11.30)
[2021-09-05 04:00] LABS: Mean Platelet Volume 12.6 fL (9.1-12.4)
[2021-09-05 04:26] LABS: Albumin, Blood 2.1 g/dL (3.4-5.0); Anion Gap 13 mmol/L (6-16); Blood Urea Nitrogen 139 mg/dL (8-24); Bun/Creatinine Ratio 38.2 (12.0-20.0); CO2, Blood 19 mmol/L (21-32); Calcium, Blood 7.9 mg/dL (8.5-10.1); Chloride, Blood 102 mmol/L (98-108); Creatinine, Blood 3.64 mg/dL (0.60-1.20); Glomerular Filtration Rate 16 (60-); Glucose, Blood 155 mg/dL (70-99); Magnesium, Blood 2.7 mg/dL (1.6-2.4); Phosphorus, Blood 6.4 mg/dL (2.5-4.9); Potassium, Blood 3.9 mmol/L (3.5-5.5); Sodium, Blood 134 mmol/L (136-145)
--- NOTE | 2021-09-05 06:07 | NUR ---
NOC SHIFT SUMMARY PT ORIENTED X4, VSS PER PT TREND. MAINTAINED O2 SATS > 95% ON 4L NC OVERNIGHT. NO COMPLAINTS OF PAIN. PACED W/UNDERLYING AFIB ON TELEMETRY. NO BM. CLOUDY HORACIO URINE DRAINING FROM TEMP CANALES. PT REPORTS FEELING DECONDITIONED AND TIRED, REQUESTING SLEEP. NOTIFIED ON-CALL MD AND ORDER FOR SLEEP AIDE PUT IN BY MD. SEE EMAR FOR DETAILS. WILL PASS ON TO DAY RN.
--- NOTE | 2021-09-05 09:47 | NUR ---
AM NOTE PATIENT IS A&OX4, PLEASANT, AND COOPERATIVE W CARE. TELE AFIB 80S, PACED AT TIMES. SPO2>95% 3-4L O2 NC. HFNC WAS SWITCHED TO NC O2 WITH HUMIDIFICATION D/T DRYNESS AND IRRITATION OF NOSTRILS. VSS OTHERWISE. CANALES CATHETER IN PLACE, DRAINING HORACIO-YELLOW CLEAR URINE PER GRAVITY. PATIENT IS 3TRANSFER, TOLERATING TRANSFER TO CHAIR. +CDIFF, HAD SEMI-FORMED BROWN STOOL THIS AM. PATIENT DENIES CP/PRESSURE, SOB, N/V, NUMBNESS/TINGLING AT THIS TIME.
--- NOTE | 2021-09-05 17:36 | NUR ---
SHIFT SUMMARY PATIENT REMAINED A&OX4, PLEASANT, AND COOPERATIVE W CARE T/O THE SHIFT. MD AT BEDSIDE THIS PM CHANGING HIS STATUS TO MED WO TELE. SPO2>95% 3L O2 NC W HUMIDIFICATION. VSS. CANALES CATHETER STILL PATENT, DRAINING YELLOW HORACIO SLIGHTLY CLOUDY URINE PER GRAVITY. PATIENT WAS OLIGURIC WITH <30ML/HR OUTPUT, MD CONTACTED. BOLUS OF 500ML GIVEN PER ORDERS. PATIENT IS ALSO ENCOURAGED TO INCREASE HIS PO FLUID INTAKE. PATIENT HAD A BED BATH TODAY AND TOLERATED IT WELL. HE ALSO HAD A FORMED BM THIS AM. NO ACUTE CHANGES AT THIS TIME. WILL CONTINUE TO MONITOR UNTIL REPORT GIVEN TO THE ONCOMING SHIFT.
--- NOTE | 2021-09-05 17:57 | NUR ---
I have reviewed the nursing students documentation and am in agreement. Notified Dr Evans of output this evening, new order for ns bolus. Clarified eliquis orders, new orders to discontinue. Vss. No other acute changes noted. Will continue to monitor until report given to oncoming rn.
--- NOTE | 2021-09-05 23:00 | NUR ---
ASSUMED CARE PT IS ALERT AND ORIENTED. PT IS CURRENTLY ON 6L HFNC WITH SATS ABOVE 90%. THIS NURSE LOOKED OVER SHIFT ASSESSMENT AND THERE HAS BEEN NO ACUTE CHANGES. PT USES CALL LIGHT APPROPRIETLY. CALL LIGHT IS WITHIN REACH.
--- NOTE | 2021-09-05 23:00 | NUR ---
ASSUMED CARE PT SLEEPING. LOOKED OVER ASSESMENT AND THERE ARE NO CHANGES. CALL LIGHT IS WITHIN REACH.
[2021-09-06 04:25] LABS: Hematocrit 25.2 % (37.0-53.0); Hemoglobin 8.7 g/dL (13.5-17.5); Mean Corpuscular HGB 28.1 pg (26.0-34.0); Mean Corpuscular HGB Conc 34.5 g/dL (31.5-36.5); Mean Corpuscular Volume 81 fL (80-100); Mean Platelet Volume 10.9 fL (9.1-12.4); Platelet Count 133 K/mm3 (150-400); RDW Coefficient Variation 17.4 % (11.7-14.2); RDW Standard Deviation 50.9 fL (35.1-46.3); White Blood Cell Count 9.97 K/mm3 (4.00-11.30)
[2021-09-06 04:43] LABS: Albumin, Blood 1.9 g/dL (3.4-5.0); Albumin/Globulin Ratio 0.6 (0.8-1.8); Bilirubin, Total 2.2 mg/dL (0.1-1.0); Bun/Creatinine Ratio 39.3 (12.0-20.0); Calcium, Blood 7.6 mg/dL (8.5-10.1); Creatinine, Blood 3.82 mg/dL (0.60-1.20); Magnesium, Blood 2.6 mg/dL (1.6-2.4); Phosphorus, Blood 6.6 mg/dL (2.5-4.9); Potassium, Blood 3.9 mmol/L (3.5-5.5); Total Protein, Blood 4.9 g/dL (6.4-8.2)
--- NOTE | 2021-09-06 06:28 | NUR ---
DR ABHIJEET ARMANDO GAVE VERBAL ORDER OF 2MG BUMEX IV X1. ORDER ENTERED INTO EMAR.
--- NOTE | 2021-09-06 06:33 | NUR ---
SHIFT SUMMARY PT IS ALERT AND ORIENTED. PT DENIES CHEST PAIN/PRESSURE. THERE HAVE BEEN NO ACUTE CHANGES T/O THE NIGHT. VITALS ARE STABLE AND PT IS CURRENTLY ON 8L HFNC WITH SATS ABOVE 92%. PT REFUSED TO WEAR CPAP STATES THAT IT MAKES HIS NOSE AND MOUTH DRY. HE HAS REPORTED A STUFFY NOSE AND HAS BEEN BLOWING NOSE WHICH CAUSES BLEEDING. HE HAS BEEN REPOSITIONED AND MEPILEX WAS PLACED ON COCCYX DUE TO REDNESS. CANALES IN PLACE AND DRAINING TEA COLOR URINE. CALL LIGHT IS WITHIN REACH.
[2021-09-06 06:46] LABS: BASOPHILS PERCENT MAN 0 % (0-2); EOSINOPHILS ABSOLUTE MAN 0.09 K/mm3 (0.00-0.68); EOSINOPHILS PERCENT MAN 1 % (0-6); LYMPHOCYTES ABSOLUTE MAN 0.29 K/mm3 (0.84-5.20); LYMPHOCYTES PERCENT MAN 3 % (21-46); MONOCYTES ABSOLUTE MAN 0.09 K/mm3 (0.16-1.47); MONOCYTES PERCENT MAN 1 % (4-13); NEUTROPHILS ABSOLUTE MAN 9.47 K/mm3 (1.96-9.15); SEG NEUTROPHILS PERCENT MAN 95 % (41-73); TOTAL CELLS COUNTED 100
--- NOTE | 2021-09-06 14:14 | NUR ---
SPEECH EVAL: PATIENT HAS BEEN ONLY EATING ABOUT 10% OF HIS BREAKFAST AND LUNCH TODAY. OFFERED THE PATIENT GROUND BEEF/YOGURT/MECHANICAL SOFT FOODS AND WAS AGREEABLE TO IT. THEN DIETARY CAME INTO THE ROOM AND TALKED WITH PATIENT SHORTLY AFTER. PATIENT REPORTED TO DIETARY THAT HE WAS SEEING A SPEECH THERAPIST. SPEECH THERAPIST IS NOW INVOLVED FOR THE PATIENT AND WILL BE COMING DOWN TO THE ROOM SHORTLY. FAMILY AT BEDSIDE AND CALL LIGHT IS WITHIN REACH.
--- NOTE | 2021-09-06 15:05 | NUR ---
SHIFT SUMMARY: SEPSIS/PNEUMONIA/C. DIFF + PATIENT IS A&OX4. VS ARE WNL BUT IS ON 5L OXYGEN NC WITH >90% OXYGEN SATS. HE HAS BEEN IN CHAIR FOR MEALS. PATIENT IS A 2-3 PERSON MODERATE ASSIST WITH FWW AND GAIT BELT. CANALES IS PATENT AND HAS NO KINKS IN TUBING. OUTPUT IN CANALES IS TEA/DARK COLORED. MEPLIEX ON COCCYX AND IS C/D/I. ATTENDS IN PLACE AND IS BEING CHANGED PRN. PATIENT IS TOLERATING SMALL AMOUNTS OF PO INTAKE, SPEECH THERAPIST IS IN THE ROOM AT THIS TIME. PATIENT IS ALSO PASSING GAS. PATIENTS FAMILY BROUGHT IN HIS HOME CPAP AND HE REPORTS "I WANT TO WEAR IT TONIGHT". RESPIRATORY THERAPIST HAS BEEN NOTIFIED. FAMILY AT BEDSIDE. CALL LIGHT WITHIN REACH. THE PLAN IS TO DISCHARGE TO A SNF WHEN APPROPRIATE/BEDS AVAILABLE. ALSO CONTINUE ABX TO HELP WITH C. DIFF.
[2021-09-07 04:18] LABS: BASOPHILS ABSOLUTE AUTO 0.02 K/mm3 (0.00-0.23); BASOPHILS PERCENT AUTO 0 % (0-2); EOSINOPHILS ABSOLUTE AUTO 0.27 K/mm3 (0.00-0.68); EOSINOPHILS PERCENT AUTO 3 % (0-6); Hematocrit 25.7 % (37.0-53.0); Hemoglobin 8.9 g/dL (13.5-17.5); IMMATURE GRAN ABSOLUTE AUTO 0.26 K/mm3 (0.00-0.10); IMMATURE GRAN PERCENT AUTO 3 % (0-1); LYMPHOCYTES ABSOLUTE AUTO 0.29 K/mm3 (0.84-5.20); LYMPHOCYTES PERCENT AUTO 3 % (21-46); MONOCYTES ABSOLUTE AUTO 0.58 K/mm3 (0.16-1.47); MONOCYTES PERCENT AUTO 6 % (4-13); Mean Corpuscular HGB 27.8 pg (26.0-34.0); Mean Corpuscular HGB Conc 34.6 g/dL (31.5-36.5); Mean Corpuscular Volume 80 fL (80-100); Mean Platelet Volume 11.6 fL (9.1-12.4); NEUTROPHILS ABSOLUTE AUTO 8.29 K/mm3 (1.96-9.15); NEUTROPHILS PERCENT AUTO 85 % (41-73); Platelet Count 159 K/mm3 (150-400); RDW Coefficient Variation 17.2 % (11.7-14.2); RDW Standard Deviation 49.6 fL (35.1-46.3); White Blood Cell Count 9.71 K/mm3 (4.00-11.30)
[2021-09-07 04:45] LABS: Magnesium, Blood 2.8 mg/dL (1.6-2.4)
[2021-09-07 04:54] LABS: Albumin, Blood 1.9 g/dL (3.4-5.0); Albumin/Globulin Ratio 0.6 (0.8-1.8); Bilirubin, Total 2.6 mg/dL (0.1-1.0); Bun/Creatinine Ratio 37.9 (12.0-20.0); Calcium, Blood 7.4 mg/dL (8.5-10.1); Creatinine, Blood 4.14 mg/dL (0.60-1.20); Globulin, Blood 3.2 g/dL (2.2-4.0); Phosphorus, Blood 6.8 mg/dL (2.5-4.9); Potassium, Blood 4.1 mmol/L (3.5-5.5); Total Protein, Blood 5.1 g/dL (6.4-8.2)
--- NOTE | 2021-09-07 06:36 | NUR ---
NOC SHIFT SUMMARY PT ORIENTED X4, VSS PER PT TREND. MAINTAINED O2 SATS > 92% ON 4-5L NC OR CPAP. NO COMPLAINTS OF PAIN. ORAL CARE COMPLETED FREQUENTLY D/T COATED TONGUE AND MOUTH DISCOMFORT. MEDICATIONS GIVEN WITH PUDDING OR APPLESAUCE. PRODUCTIVE PINK/BLOODY COUGH. CANALES DRAINING HORACIO URINE W/SOME SEDIMENT. SLEPT WELL OVERNIGHT. WILL PASS ON TO DAY RN.
--- NOTE | 2021-09-07 07:14 | NUR ---
ASSUMED CARE: PT RESTING QUIETLY, 5-6L NC. NO ACUTE NEEDS OR CONCERNS AT THIS TIME.
--- NOTE | 2021-09-07 09:20 | NUR ---
DR SANTOS AT BEDSIDE AND DISCUSSED PT'S CASE WITH PT'S DAUGHTER. DAUGHTER SHOWED THE SORES THAT PT HAS ON HIS TONGUE AND DISCUSSED HIS NOSE BLEEDS WITH HER. DR AWARE THAT SPEECH IS DOING SWALLOW STUDY AT 930. DR SANTOS TO CALL DR ARMANDO TO DETERMINE FURTHER PLANS
[2021-09-07 09:23] LABS: Creatinine, Blood 4.22 mg/dL (0.60-1.20)
--- NOTE | 2021-09-07 09:34 | NUR ---
PT TAKEN TO SWALLOW EVAL BY TRANSPORTER VIA GURNEY WITH 6L O2 IN PLACE.
--- NOTE | 2021-09-07 15:00 | NUR ---
ROM PROVIDED TO PT BY REMOVING PILLOWS FROM HIPS AND CHECKING ONEIL PAD. PT HAD SMALL SMEAR AND WAS CLEANED UP WITH CATH CARE COMPLETED. CHECKED SKIN BENEATH MEPILEX WITH NO WOUND NOTED BENEATH. MEPILEX IN PLACE FOR PROTECTION. OFFERED TO GET PT UP TO CHAIR AND PT DECLINED. STATES HE IS TOO SORE TIRED
--- NOTE | 2021-09-07 15:45 | NUR ---
PT ASKED WHEN HE COULD EAT. [facility] [employer] [facility] AND FOUND THAT PT IS SCHEDULED FOR CATH PROCEDURE TOMORROW. PT AND DAUGHTER AWARE AND SIGN OUTSIDE OF DOOR STATES NPO AFTER MN. PUDDING PROVIDED WITH DAUGHTER ASSISTING WITH FOOD
--- NOTE | 2021-09-07 16:58 | NUR ---
REPORT GIVEN TO JANETH MATTHEWS. PT TRANSFERRED VIA BED TO ROOM 337. RN AWARE OF PLANS FOR PERMACATH PLACEMENT TOMORROW. DAUGHTER AT BEDSIDE AND AWARE OF NEW ROOM AND PLANS. PT TRANSFERRED ON 6L O2 VIA NC. NO ACUTE NEEDS OR CONCERNS.
--- NOTE | 2021-09-07 17:00 | NUR ---
PATIENT TRANSFERRED FROM PCU 19 TO ROOM 337, REPORT RECEIVED FROM JANETH JESUS. DAUGHTER AT BEDSIDE. PATIENT MAINTAINING SATS ON 6LO2 VIA NC. FOAM DRESSING TO COCCYX FOR PROTECTION PER REPORT. STAGE 1 PRESSURE SORE NOTED TO HEELS. HEEL PROTECTORS PLACED AND HEELS FLOATED ON PILLOWS. CANALES TO GRAVITY WITH HORACIO CLEAR OUTPUT. ON CONTACT ENTERIC PRECAUTIONS FOR C-DIFF. MOTHU AND NOSE CAKED WITH DRY BLOOD, ORAL CARE PERFORMED. SORES NOTED TO THE BACK OF PATIENTS THROAT AND TONGUE. VSS AT THIS TIME. ORIENTED TO ROOM AND USE OF CALL LIGHT. NPO AT MIDNIGHT FOR PERMACATH PLACEMENT TOMORROW.
--- NOTE | 2021-09-08 03:29 | NUR ---
Patient was uncomfortable most of the night. His mouth was extremely sore each time he would attempt to swallow a pill (crushed or whole) in pudding or applesauce. Immediately after, he would just move his tongue and salivate. Water made him choke even at 90 degrees. Very frequent gentle oral care throughout the shift. This RN does not feel he is safe to swallow (any texture) at all. 0600 PO Vanco dose to be held in the morning. Patient was turned every two hours at least in an effort to keep him more comfortable and promote sleep. heel protectors remain on feet as heels are getting red.
[2021-09-08 05:14] LABS: BASOPHILS ABSOLUTE AUTO 0.02 K/mm3 (0.00-0.23); BASOPHILS PERCENT AUTO 0 % (0-2); EOSINOPHILS ABSOLUTE AUTO 0.28 K/mm3 (0.00-0.68); EOSINOPHILS PERCENT AUTO 3 % (0-6); Hematocrit 25.4 % (37.0-53.0); Hemoglobin 8.8 g/dL (13.5-17.5); IMMATURE GRAN ABSOLUTE AUTO 0.21 K/mm3 (0.00-0.10); IMMATURE GRAN PERCENT AUTO 2 % (0-1); LYMPHOCYTES ABSOLUTE AUTO 0.23 K/mm3 (0.84-5.20); LYMPHOCYTES PERCENT AUTO 2 % (21-46); MONOCYTES ABSOLUTE AUTO 0.61 K/mm3 (0.16-1.47); MONOCYTES PERCENT AUTO 6 % (4-13); Mean Corpuscular HGB 27.8 pg (26.0-34.0); Mean Corpuscular HGB Conc 34.6 g/dL (31.5-36.5); Mean Corpuscular Volume 80 fL (80-100); Mean Platelet Volume 11.8 fL (9.1-12.4); NEUTROPHILS ABSOLUTE AUTO 9.41 K/mm3 (1.96-9.15); NEUTROPHILS PERCENT AUTO 87 % (41-73); Platelet Count 166 K/mm3 (150-400); RDW Coefficient Variation 17.6 % (11.7-14.2); RDW Standard Deviation 50.8 fL (35.1-46.3); Red Blood Cell Count 3.17 M/mm3 (4.30-5.90); White Blood Cell Count 10.76 K/mm3 (4.00-11.30)
[2021-09-08 06:04] LABS: Albumin, Blood 1.9 g/dL (3.4-5.0); Albumin/Globulin Ratio 0.6 (0.8-1.8); Bilirubin, Total 3.3 mg/dL (0.1-1.0); Bun/Creatinine Ratio 35.9 (12.0-20.0); Calcium, Blood 8.1 mg/dL (8.5-10.1); Creatinine, Blood 4.59 mg/dL (0.60-1.20); Globulin, Blood 3.4 g/dL (2.2-4.0); Phosphorus, Blood 7.6 mg/dL (2.5-4.9); Potassium, Blood 4.3 mmol/L (3.5-5.5); Total Protein, Blood 5.3 g/dL (6.4-8.2)
--- NOTE | 2021-09-08 06:22 | NUR ---
PATIENT UNCOMFORTABLE MOST OF NIGHT. DECLINED OFFERS OF PAIN MEDS, BUT TOOK FREQUENT REPOSITIONING AND TOLERATED WELL. SPOKE WITH HOSPITALIST IN AM AND RECEIVED AN ORDER FOR IV PAIN MEDICATION, BUT PATIENT WAS FINALLY ASLEEP AFTER ORDER RECEIVED. PATIENT UNABLE TO SAFELY SWALLOW MEDICATIONS IN PUDDING OR PUREE. SIPS H20 CAUSED SERIOUS CHOKING ALSO. HELD AM THYROID AND PO VANCO FOR PATIENT SAFETY. FREQUENT ORAL CARE GIVEN FOR SEVERE MOUTH PAIN.
--- NOTE | 2021-09-08 17:16 | NUR ---
SHIFT SUMMARY; PATIENT RECEIIVED A PERMACATH TO RIGHT CHEST WALL. AFTER SURGERY PATIENT IMMEDIATELY TO DIALYSIS. PATIENT DID NOT RETURN TO MED FLOOR UNTIL AFTER LUNCH. HE HAS HAD DIFFICULTY SWALLOWING AND REFUSES TO TAKE PO MEDS. IS VERY KIND TO ORDER MAGIC MOUTHWASH. PROVIDED TO PATIENT 30 MINUTES PRIOR TO DINNER AND PATIENT ABLE TO TAKE HIS SCOTT MEDS WITHOUT DIFF. FAMILY WILL RETURN TO FEED HIS SCOTT MEAL TONIGHT. PATIENTS BLOOD PRESSURES HAVE BEEN SOFT TODAY BEING BELOW 100 SYSTOLIC. HIS MEDIPORT IS RED AND SLIGHTLY SWOLLEN. NO BLOOD NOTED AROUND SURGICAL SITE. PATIENT IS AO X 4 AT SHIFT CHANGE AND CALLS APPROPRIATELY FOR ASSIST. HE S SPEAKING IN FULL SENTENCES AND IS ABLE TO MAKE HIS NEEDS KNOWN. HE STILL APPEARS VERY WEAK. SPEECH THERAPY DID SEE PATIENT PRIOR TO SURGERY AND MET WITH FAMILLY. HE IS CURRENTLY ON A PUREED DIET, AND A NO STRAWS ORDERED BY SPEECH.
--- NOTE | 2021-09-09 04:49 | NUR ---
PT SLEPT MOST OF THE NIGHT WITH CPAP ON. PENIS WRAPPED WITH COBAN AND ELEVATED AT BEGINING OF SHIFT. SWELLING DECREASED, COBAN REMOVED. PT STATES HE FEELS MORE COMFORTABLE THAN BEFORE. NO PRNS GIVEN.
[2021-09-09 05:20] LABS: Hematocrit 26.9 % (37.0-53.0); Hemoglobin 9.4 g/dL (13.5-17.5)
[2021-09-09 05:48] LABS: Albumin, Blood 1.9 g/dL (3.4-5.0); Anion Gap 12 mmol/L (6-16); Blood Urea Nitrogen 122 mg/dL (8-24); Bun/Creatinine Ratio 30.7 (12.0-20.0); CO2, Blood 24 mmol/L (21-32); Calcium, Blood 8.2 mg/dL (8.5-10.1); Chloride, Blood 103 mmol/L (98-108); Creatinine, Blood 3.97 mg/dL (0.60-1.20); Glomerular Filtration Rate 15 (60-); Glucose, Blood 113 mg/dL (70-99); Magnesium, Blood 2.9 mg/dL (1.6-2.4); Phosphorus, Blood 6.4 mg/dL (2.5-4.9); Potassium, Blood 3.9 mmol/L (3.5-5.5); Sodium, Blood 139 mmol/L (136-145)
[2021-09-09 09:12] LABS: HBSAG SCREEN Negative (Negative); HCV AB 0.1 (0.0-0.9); HEP A AB, IGM Negative (Negative); HEP B CORE AB, IGM Negative (Negative)
--- NOTE | 2021-09-09 16:48 | NUR ---
SHIFT SUMMARY PT IS AOX4, COOPERATIVE AND CALM. HIS FAMILY HAS BEEN AT THE BEDSIDE ALL SHIFT. HE ATTENDED DIALYSIS TODAY AND 1300 ML WAS REMOVED. NO INSULIN COVERAGE WAS NEEDED TODAY. SUCTION HAS BEEN TERMINATED DUE TO THE PRESENCE OF PILAR RED BLOOD, A POSSIBLE SCRATCH OR WOUND IS PRESENT IN HIS THROAT. HE IS NOW ENCOURAGED TO SPIT HIS SPUTUM. HIS BLOOD PRESSURE MED WAS HELD TODAY PRIOR TO DIALYSIS AND NOT GIVEN AFTER DIALYSIS DUE TO HIS SOFT BP. HE IS INSTRUCTED TO SIT UPRIGHT AT 90 TO PROMOTE AIRWAY CLEARANCE. HE TAKES HIS MEDICATIONS WHOLE WITH APPLESAUCE, ONE AT A TIME. WILL CONTINUE TO MONITOR AND ASSESS UNTIL NOC SHIFT ARRIVES.
--- NOTE | 2021-09-09 17:07 | NUR ---
SHIFT [facility] PATIENT RECEIVED HD TODAY. 1300ML WERE REMOVED. HE TOLERATED DIALYSIS AND RETURNED TO HIS ROOM WHERE FAMLY WAITED FOR HIM. PATIENT IS AO X 4 TODAY. HE HAS BEEN USING SUCTION YONKER. HOWEVER PATIENT HAS BEEN NOTED TO BE AGGRESSIVE WITH SUCTIONING AND PILAR RED BLOOD WAS NOTED IN YONKER SO PATIENT IS ASKED TO STOP SUCTIONING FOR NOW AND JUST TO TRY AND SPIT INTO A [place]. PATIENT TOLERATED WELL WITH THIS AND FAMILY ASSISTS HIM AT BEDSIDE. PATIENTS BLOOD PRESSURES HAVE STILL BEEN NOTED TO BE SOFT AND HE EXPRESSES THAT HE IS A LITTLE DIZZY AT TIMES. PATIENT HAS PURPLE BRUISE TO LFT HEEL AND RED EGGCRATE HEEL PROTECTORS ARE PLACED AGAIN ANDAnant ASHLEY IS ASKED TO PLEASE LEAVE THEM ON PATIENT.
--- NOTE | 2021-09-09 22:30 | NUR ---
PT IS DECLINING CPAP - HE REPORTS "IT MAKES HIS MOUTH DRY." OFFERRED TO ASSIST NEEDED WITH PO FLUIDS - PT CONTINUES TO DECLINE CPAP. O2 ON VIA NC - CONTINUOUS BIOX ON - SATS WNL.
--- NOTE | 2021-09-10 03:21 | NUR ---
NEW MEPILEX APPLIED TO COCCYX AREA - NO SKIN BREAKDOWN VISUALIZED ON COCCYX, OR BUTTOCKS, HOWEVER DISCOLORATION BUT BLANCHES. CALL LIGHT WITHIN REACH. FRESH WATER PROVIDED. OCCASIONAL PRODUCTIVE COUGH - YELLOW THICK SPUTUM. SATS WNL ON CONTINUOUS BIOX.
--- NOTE | 2021-09-10 04:43 | NUR ---
SHIFT SUMMARY - NO ACUTE CHANGES THROUGHOUT THIS SHIFT. PT HAD 3 INCONTINENT SOFT YELLOW BM'S TONIGHT. PT DECLINED WEARING HIS CPAP TONIGHT - HE REPORTED IT MAKES HIS MOUTH DRY - OFFERRED ASSISTANCE WITH REMOVAL OF CPAP FOR WATER BREAKS - PT CONTINUED TO DECLINE CPAP. CONTINUOUS BIOX ON - SATS WNL THROUGHOUT THE NIGHT. PT TOLERATED HIS PILLS WHOLE IN APPLESAUCE WITH A CHIN TUCK MOTION. PT HAS HAD AN OCCASIONAL PRODUCTIVE COUGH - SMALL/SCANT AMOUNTS OF YELLOW THICK SPUTUM. PT TOLERATED PO FLUIDS WITHOUT DIFFICULTY. PINK BOOTIES TO BILATERAL FEET. NEW MEPILEX APPLIED TO COCCYX. CALL LIGHT WITHIN REACH. BED IN LOW POSITION. WILL CONTINUE TO MONITOR UNTIL AM SHIFT CHANGE.
[2021-09-10 05:49] LABS: Hematocrit 25.9 % (37.0-53.0)
[2021-09-10 06:23] LABS: Albumin, Blood 1.9 g/dL (3.4-5.0); Anion Gap 10 mmol/L (6-16); Blood Urea Nitrogen 77 mg/dL (8-24); Bun/Creatinine Ratio 23.7 (12.0-20.0); CO2, Blood 29 mmol/L (21-32); Calcium, Blood 8.5 mg/dL (8.5-10.1); Chloride, Blood 105 mmol/L (98-108); Creatinine, Blood 3.25 mg/dL (0.60-1.20); Glomerular Filtration Rate 19 (60-); Glucose, Blood 112 mg/dL (70-99); Magnesium, Blood 2.8 mg/dL (1.6-2.4); Phosphorus, Blood 4.6 mg/dL (2.5-4.9); Potassium, Blood 3.4 mmol/L (3.5-5.5); Sodium, Blood 144 mmol/L (136-145)
--- NOTE | 2021-09-10 18:37 | NUR ---
SHIFT SUMMARY: PT A/OX4 BEDREST. PT HAS WEAK OCCASIONAL NON PRODUCTIVE COUGH. NO STOOLS THROUGHOUT DAY SHIFT. POOR APPETITE. TOLERATING PO MEDICATIONS. IN ROOM WITH PT TODAY AND ASSISTED WITH FEEDING PT AND DOING ROM EXERCISES WITH HIM. PT PLEASANT AND COOPERATIVE WITH CARES. DID REQUEST LIDOCAINE MOUTH WASH AT DINNER TIME FOR PAIN.
[2021-09-11 05:02] LABS: Hematocrit 27.3 % (37.0-53.0); Hemoglobin 9.2 g/dL (13.5-17.5)
[2021-09-11 05:37] LABS: Anion Gap 10 mmol/L (6-16); Blood Urea Nitrogen 94 mg/dL (8-24); Bun/Creatinine Ratio 27.5 (12.0-20.0); CO2, Blood 28 mmol/L (21-32); Calcium, Blood 8.7 mg/dL (8.5-10.1); Chloride, Blood 104 mmol/L (98-108); Creatinine, Blood 3.42 mg/dL (0.60-1.20); Glomerular Filtration Rate 18 (60-); Glucose, Blood 124 mg/dL (70-99); Magnesium, Blood 2.9 mg/dL (1.6-2.4); Phosphorus, Blood 5.7 mg/dL (2.5-4.9); Potassium, Blood 3.6 mmol/L (3.5-5.5); Sodium, Blood 142 mmol/L (136-145)
--- NOTE | 2021-09-11 06:08 | NUR ---
RAIL SIGNAL WORKER SUMMARY ADMITTED FOR SEPSIS R/T PNA. PT IS FULL CODE. HE HAS BEEN RESTING THROUGHOUT THE NIGHT. C. DIFF POSITIVE BUT IMPROVING AND DECREASING IN AMOUNT OF BMS. PT ALERT AND ORIENTED X4 AND COOPERATIVE WITH CARE. HE HAS HAD A COUGH PRODUCTIVE OF THICK WHITE SPUTUM. THE PATIENT HAS BEEN ON 5L BY NC WITHOUT DIFFICULTY.
--- NOTE | 2021-09-11 16:34 | NUR ---
PATIENT IS ALERT AND ORIENTED AND COOPERATIVE WITH CARE. NO EPISODES OF DIARHHEA YET THIS SHIFT. PATIENT WAS DIALYZED THIS MORNING. CANALES IS IN PLACE AND DRAINGING WITH GRAVITY. NO C/O PAIN. ON 5L O2 VIA NC. NO C/O SOB. FAMILY IS AT THE BEDSIDE. WILL CONTINUE TO MONITOR.
[2021-09-12 05:32] LABS: Hematocrit 24.9 % (37.0-53.0); Hemoglobin 8.2 g/dL (13.5-17.5)
[2021-09-12 05:56] LABS: Albumin, Blood 1.7 g/dL (3.4-5.0); Anion Gap 8 mmol/L (6-16); Blood Urea Nitrogen 63 mg/dL (8-24); Bun/Creatinine Ratio 23.2 (12.0-20.0); CO2, Blood 31 mmol/L (21-32); Calcium, Blood 8.1 mg/dL (8.5-10.1); Chloride, Blood 101 mmol/L (98-108); Creatinine, Blood 2.71 mg/dL (0.60-1.20); Glomerular Filtration Rate 23 (60-); Glucose, Blood 106 mg/dL (70-99); Magnesium, Blood 2.6 mg/dL (1.6-2.4); Phosphorus, Blood 4.4 mg/dL (2.5-4.9); Potassium, Blood 3.5 mmol/L (3.5-5.5); Sodium, Blood 140 mmol/L (136-145)
--- NOTE | 2021-09-12 17:53 | NUR ---
DAY SHIFT SUMMARY 76 YR OLD MALE PT WITH SEPSIS D/T PNEUMONIA. CANALES INTACT/PATENT/DRAINING PER GRAVITY. MEPILEX TO SACRAL AREA WITH SMALL OPEN AREA. HEEL PROTECTOR ON LEFT FOOT FOR SMALL AREA ON LEFT HEEL - NOT OPEN BUT RED. CALL LIGHT WITHIN REACH. AT BEDSIDE THROUGHOUT SHIFT. 6L O2 NC. BEDREST
[2021-09-13 05:04] LABS: Hematocrit 25.2 % (37.0-53.0); Hemoglobin 8.1 g/dL (13.5-17.5)
[2021-09-13 05:36] LABS: Albumin, Blood 1.7 g/dL (3.4-5.0); Anion Gap 8 mmol/L (6-16); Blood Urea Nitrogen 80 mg/dL (8-24); CO2, Blood 31 mmol/L (21-32); Calcium, Blood 8.3 mg/dL (8.5-10.1); Chloride, Blood 101 mmol/L (98-108); Creatinine, Blood 2.96 mg/dL (0.60-1.20); Glomerular Filtration Rate 21 (60-); Glucose, Blood 85 mg/dL (70-99); Magnesium, Blood 2.6 mg/dL (1.6-2.4); Phosphorus, Blood 5.3 mg/dL (2.5-4.9); Potassium, Blood 3.6 mmol/L (3.5-5.5); Sodium, Blood 140 mmol/L (136-145)
--- NOTE | 2021-09-13 06:18 | NUR ---
SUMMARY NO NEW ISSUES NOTED. PT HAS REFUSED TO WEAR HEEL PROTECTORS. FLOAT LEGS ON PILLOWS TOLERATED. PT CANALES DRAINING TO GRAVITY. PT SPO2 >90% . PT SLEPT WELL. T/OUT SHIFT. PT CURRENTLY AWAKE AND IN NO DISTRESS. CALL LIGHT IN REACH.
--- NOTE | 2021-09-13 16:14 | NUR ---
SHIFT SUMMARY PATIENT IS ALERT AND ORIENTATED. PATIENT IS IN CONTACT ISO FOR C. DIFF. PATIENT HAS STILL BEEN HAVING LOOSE STOOLS. PATIENT HAS HAD NO ACUTE ISSUES THIS SHIFT. PATIENT HAS BEEN ON BEDREST ALL SHIFT. PT WORKED WITH PATIENT AND SAT ON SIDE OF BED FOR EXTENDED PERIOD OF TIME, WILL CONTINUE TO WORK WITH PATIENT. PATIENT HAS HAD NO ACUTE EVENTS THIS SHIFT. VITAL SIGNS REVIEWED. PATIENT HAS CANALES IN PLACE, DRAINING TO GRAVITY. BED IN LOCKED AND LOWEST POSITION. CALL LIGHT IN PLACE. WILL MONITOR UNTIL SHIFT CHANGE.
--- NOTE | 2021-09-14 05:34 | NUR ---
SUMMARY PT HAD NO NEW ISSUES THIS SHIFT. PT HAD LARGE NOTED BM THIS SHIFT. PT CANALES DRAINING TO GRAVITY. PT HAS SLEPT OFF AND ON THIS SHIFT. PT IN NO DISTRESS. CALL LIGHT IN REACH.
--- NOTE | 2021-09-14 05:53 | NUR ---
PT A/O 3-4. VS STABLE. PT WAS INCONTINENTOF LOOSE STOOLS X 1. PT WAS PLEASANT AND COOPERATIVE TO CARE. PT STILL ON CONTACT ISO FOR C.DIFF. PT CANALES STILL PATENT AND DRAINING TO GRAVITY. PT IS ON 6L/NC WITH SPO2 96% WITH CONTINOUS SPO2 MONITORING. PT IS WATCHING TV WITH CALL LIGHT WITHIN REACH AND BED IN LOWEST POSITION.
[2021-09-14 10:31] LABS: SARS-Cov-2 (COVID-19) PCR, MMC NEGATIVE (NEGATIVE)
--- NOTE | 2021-09-14 18:04 | NUR ---
END OF SHIFT SUMMARY: PATIENT DENIED PAIN THROUGHOUT THE SHIFT. PATIENT ON 6L VIA NC. PATIENT DENIED SHORTNESS OF BREATH OR DIFFICULTY BREATHING. PATIENT SATURATIONS FROM 94-96%. ATTEMPTED TO WEEN PATIENT DOWN TO 5L. PATIENT SATURATIONS DECREASED LOW 84% WITH SOME RECOVERY INBETWEEN UP TO 91%. PATIENT INCREASED BACK TO 6L AND BACK TO 94-96%. PATIENT HAS BEEN USING THE FLUTTER VALVE THROUGHOUT THE SHIFT. THICK, DARK BROWN/DARK RED SPUTUM A RESULT. PATIENT REPORTS FEELING CONGESTED AND THAT THE FLUTTER VALVE IS HELPING. PATIENT HAS HAD TWO LOOSE YELLOW/BROWN STOOLS. PATIENT REPORTS STILL FEELING "FULL". PATIENT DENIES NAUSEA OR STOMACH CRAMPING. PATIENT REPORTS A MINIMAL APPETITE. CAN DRAGGER AND SPEECH THERAPY ROUNDED ON PATIENT.
--- NOTE | 2021-09-15 04:55 | NUR ---
SHIFT SUMMARY - NO ACUTE CHANGES THROUGHOUT THIS SHIFT. PT SLEPT FOR SEVERAL HOURS TONIGHT. PT DENIED ANY PAIN. PLAN IS FOR DC SUNDAY TO [facility] WITH DIALYSIS IN PLACE, PER DAY SHIFT REPORT. PT TOLERATED PO FLUIDS/APPLE SAUCE WITH MEDICATION WITHOUT COMPLICATIONS, USING CHIN TUCK METHOD. CONTINOUS BIOX ON - SATS WNL THROUGHOUT THE NIGHT. WILL CONTINUE TO MONITOR PT UNTIL AM SHIFT CHANGE.
[2021-09-15 05:31] LABS: Hematocrit 25.5 % (37.0-53.0)
[2021-09-15 05:41] LABS: Albumin, Blood 1.7 g/dL (3.4-5.0); Anion Gap 9 mmol/L (6-16); Blood Urea Nitrogen 70 mg/dL (8-24); Bun/Creatinine Ratio 28.1 (12.0-20.0); CO2, Blood 28 mmol/L (21-32); Calcium, Blood 8.1 mg/dL (8.5-10.1); Chloride, Blood 100 mmol/L (98-108); Creatinine, Blood 2.49 mg/dL (0.60-1.20); Glomerular Filtration Rate 26 (60-); Glucose, Blood 120 mg/dL (70-99); Magnesium, Blood 2.5 mg/dL (1.6-2.4); Phosphorus, Blood 4.9 mg/dL (2.5-4.9); Potassium, Blood 3.6 mmol/L (3.5-5.5); Sodium, Blood 137 mmol/L (136-145)
--- NOTE | 2021-09-15 19:13 | NUR ---
SHIFT SUMMARY PATIENT A&O. 2PA TO TURN. WENT TO DIALYSIS THIS AM. WORKED WITH PT IN AFTERNOON. STOOD ON SIDE OF BED USING THE [employer] X[employer] WHILE WORKING WITH PT. ON 6L NC, REDUCED TO 3L NC. ON DIRECTOR OF SOCIAL WORK SATING LOW 90S ON 3L. PATIENT TIRED THIS EVENING AND NOT WANTING TO EAT DINNER. WILL CONTINUE TO MONITOR.
--- NOTE | 2021-09-16 04:38 | NUR ---
PREPRESS TECHNICIAN SUMMARY ADMITTED FOR SEPSIS DUE TO PNA. PT IS FULL CODE. HIS OXYGEN WAS INCREASED TO 4L BY NC DUE TO DESATURATION DURING THE NIGHT AND DURING BED CHANGES. CANALES IN PLACE AND DRAINING DARK URINE TO GRAVITY. PT RESTED WELL. HE IS REQUESTING PLACEMENT AT THE ND.
[2021-09-16 05:26] LABS: Hematocrit 23.8 % (37.0-53.0); Hemoglobin 7.5 g/dL (13.5-17.5)
--- NOTE | 2021-09-16 06:01 | NUR ---
DR ABHIJEET ARMANDO CONTACTED REGARDING PT'S HEMOGLOBIN OF 7.5 THIS AM. PT DID HAVE DIALYSIS YESTERDAY. NO ORDERS AT THIS TIME.
[2021-09-16 06:11] LABS: Albumin, Blood 1.7 g/dL (3.4-5.0); Anion Gap 5 mmol/L (6-16); Blood Urea Nitrogen 47 mg/dL (8-24); Bun/Creatinine Ratio 21.1 (12.0-20.0); CO2, Blood 33 mmol/L (21-32); Calcium, Blood 8.3 mg/dL (8.5-10.1); Chloride, Blood 101 mmol/L (98-108); Creatinine, Blood 2.23 mg/dL (0.60-1.20); Glomerular Filtration Rate 30 (60-); Glucose, Blood 111 mg/dL (70-99); Magnesium, Blood 2.4 mg/dL (1.6-2.4); Phosphorus, Blood 4.1 mg/dL (2.5-4.9); Potassium, Blood 3.5 mmol/L (3.5-5.5); Sodium, Blood 139 mmol/L (136-145)
--- NOTE | 2021-09-16 11:45 | NUR ---
AM NOTE MR SILVESTRE HAS HAD DIARRHEA X 2 THIS AM, INCONT OF LOOSE STOOL. HE'S FEELING WEAK, HAS BEEN WORKING WITH ST AND PT THIS AM. 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 UNABLE TO WEAN DOWN FROM 4L NC SAT WILL DROP INTO THE 80S WITH A GOOD WAVEFORM, INCREASES TO 90S WITH DEEP BREATHS. PT INC TO 6L AFTER THERAPY JUST NOW. PT SAID HE FEELS LIKE "I JUST CAN'T GET A DEEP BREATH" PRESSURE SORE TO BUTTOCKS, TENDER AND RED, TURNED OFF BUTTOCKS EVERY 1-2 HOURS AND CLEANSED/CREAMS APPLIED. HEELS ELEVATED ON PILLOWS PRESSURE BRUISE LEFT HEEL. PLAN FOR DIALYSIS AT 1PM. PT VERY TIRED, AND SAID DIALYSIS MAKES HIM REALLY TIRED. LOW HORACIO UOP TO CANALES CATHETER. EDEMA TO TORSO, ARMS, BLE. WEAK COUGH, PT REPORTS OCCASIONAL YELLOW PHLEGM. BED LOW, CALL LIGHT IN REACH.
--- NOTE | 2021-09-16 19:30 | NUR ---
SHIFT SUMMARY MR SILVESTRE IS OX4. OCCASIONALLY PRODUCTIVE COUGH, ON 3LN/C AT THIS TIME SATS IN THE 90S, BUT HAS BEEN HIGH 6L NC AT TIMES. HE HAS HAD A FULL DAY, WORKED WITH PT, ST, HAD DIALYSIS. HE IS FATIGUED, BUT HAS BEEN WORKING WITH US IN TURNS, PRESSURE RELIEF, DANGLING ON THE EDGE OF THE BED FOR ALL MEALS, GOT UP TO THE CHAIR WITH PT TODAY, REQUIRING 2 PERSON ASSIST. REMAINS EDEMATUS TO BUE, BLE, FLANK, SCROTUM. CANALES REMAINS IN PLACE WITH LOW HORACIO UOP. DIARRHEA BROWN STOOL X 2 EARLIER IN THE SHIFT. NO C/O PAIN. BED LOW, CALL LIGHT IN REACH.
[2021-09-17 05:35] LABS: Hemoglobin 7.5 g/dL (13.5-17.5)
--- NOTE | 2021-09-17 05:45 | NUR ---
SHIFT SUMMARY AOX4. VSS. SPO2 >90% ON 3L O2. E/U RESP. DENIES DYSPNEA @REST. LUNGS DIM IN BASES c CRACKLES LLL. OCC COUGH, STATES NOT COUGHING MUCH SPUTUM. DENIES PAIN, N/V. +2 EDEMA TO BLE. DEPENDENT EDEMA T/O BODY. [place] +2 EDEMA. ENCOURAGED REPOSITIONING & FLOATING c PILLOWS. CANALES PATENT c SM AMOUNT DARK HORACIO COLOR URINE. AWAITING DIALYSIS CHAIR & PLACEMENT. CALL LIGHT IN REACH & PT ABLE TO MAKE NEEDS KNOWN.
[2021-09-17 06:11] LABS: Albumin, Blood 1.8 g/dL (3.4-5.0); Anion Gap 6 mmol/L (6-16); Blood Urea Nitrogen 41 mg/dL (8-24); Bun/Creatinine Ratio 19.6 (12.0-20.0); CO2, Blood 34 mmol/L (21-32); Chloride, Blood 100 mmol/L (98-108); Creatinine, Blood 2.09 mg/dL (0.60-1.20); Glomerular Filtration Rate 32 (60-); Glucose, Blood 100 mg/dL (70-99); Magnesium, Blood 2.3 mg/dL (1.6-2.4); Phosphorus, Blood 3.6 mg/dL (2.5-4.9); Potassium, Blood 3.5 mmol/L (3.5-5.5); Sodium, Blood 140 mmol/L (136-145)
--- NOTE | 2021-09-17 17:41 | NUR ---
SHIFT SUMMARY PT A&O X4 AND IN PLEASENT MOOD T/O SHIFT. BREATHING TREATMENT NEEDED THIS EVENING, 2L NC. PT UTILIZED FLUTTER VALVE T/O SHIFT. R/O INCREASED PHLEM W/ COUGHING. VSS. CALL LIGHT W/IN REACH. CONT. PULSE OX. IN PLACE. CANALES IN PLACE, DRAINING MIN. HORACIO URINE TO GRAVITY. NO HD THIS SHIFT.
--- NOTE | 2021-09-18 05:10 | NUR ---
A & OX4. V/S WNL. MECHANICAL SOFT:ADA DIET. PILLS WHOLE IN APPLE SAUCE. O2 @ 2LPM VIA N/C. ACUCHECKS AC ONLY. IV TO L) UPPER ARM & R) WRIST. PERMACATH TO R) UPPER CHEST. 2-ASSIST. TURN Q2HRS. PT DENIED ANY PAIN. CANALES IN SITU AND DRAINING DARK, SEDIMENT URINE. DYALISIS PT. WILL CONTINUE TO MONITOR.
[2021-09-18 05:29] LABS: Hematocrit 25.4 % (37.0-53.0); Hemoglobin 7.7 g/dL (13.5-17.5)
[2021-09-18 06:04] LABS: Albumin, Blood 1.9 g/dL (3.4-5.0); Anion Gap 5 mmol/L (6-16); Blood Urea Nitrogen 54 mg/dL (8-24); CO2, Blood 34 mmol/L (21-32); Calcium, Blood 8.4 mg/dL (8.5-10.1); Chloride, Blood 100 mmol/L (98-108); Creatinine, Blood 2.25 mg/dL (0.60-1.20); Glomerular Filtration Rate 29 (60-); Glucose, Blood 105 mg/dL (70-99); Magnesium, Blood 2.5 mg/dL (1.6-2.4); Phosphorus, Blood 4.2 mg/dL (2.5-4.9); Potassium, Blood 3.7 mmol/L (3.5-5.5); Sodium, Blood 139 mmol/L (136-145)
--- NOTE | 2021-09-18 10:40 | NUR ---
AM NOTE MR SILVSETRE IS A&4X4. CONTINUOUS PULSE OX, ON 3L NC, MAINTAINING TO 90% OR GREATER, DESATS BRIEFLY ON EXERTION. UP TO THE CHAIR THIS MORNING FOR ABOUT 2.5 HOURS WITH LIFTS AND 2 PERSON ASSIST. BACK IN BED NOW, DOUG YODER APPLIED. PLAN FOR DIALYSIS AT 1PM TODAY. BED LOW, CALL LIGHT IN REACH.
--- NOTE | 2021-09-18 18:02 | NUR ---
SHIFT SUMMARY MR SILVESTRE IS A&OX4. NO RESP DISTRESS ON 2L N/C. TRIED TO WEAN TO 1L NC, BUT SATS DROPPED TO LOW 80S. DOES DROP SATS TO 80S ON 2L NC ON EXERTION, BUT SHORTLY COMES BACK TO 90%. HAS SAT IN CHAIR THIS AM AND DANGLED ON THE EDGE OF HIS BED FOR ALL MEALS. HE IS STRONGER THAN A COUPLE OF DAYS AGO AND ABLE TO HELP TO MOVE HIMSELF MORE TODAY. WORKED WITH PT TODAY. HAD HEMODIALYSIS. 1 EPISODE OF INCONTINENCE OF DIARROEA THIS MORNING. CANALES REMAINS IN PLACE - 250CC OUT FOR THIS SHIFT. C/O SCROTAL DISCOMFORT, BUT NO OTHER PAIN. MOVING AND TURNING WELL FOR AIDING PRESSURE AREA ON COCCYX AND LEFT HEEL. CALL LIGHT IN REACH, BED LOW.
[2021-09-19 05:53] LABS: Hematocrit 26.1 % (37.0-53.0); Hemoglobin 7.9 g/dL (13.5-17.5)
[2021-09-19 06:27] LABS: Anion Gap 5 mmol/L (6-16); Blood Urea Nitrogen 39 mg/dL (8-24); Bun/Creatinine Ratio 23.9 (12.0-20.0); CO2, Blood 33 mmol/L (21-32); Calcium, Blood 8.5 mg/dL (8.5-10.1); Chloride, Blood 104 mmol/L (98-108); Creatinine, Blood 1.63 mg/dL (0.60-1.20); Glomerular Filtration Rate 43 (60-); Glucose, Blood 93 mg/dL (70-99); Magnesium, Blood 2.3 mg/dL (1.6-2.4); Phosphorus, Blood 3.2 mg/dL (2.5-4.9); Potassium, Blood 3.6 mmol/L (3.5-5.5); Sodium, Blood 142 mmol/L (136-145)
--- NOTE | 2021-09-19 07:29 | NUR ---
AT 0605, DR. REHMAN ROUNDED UP WITH PT.
--- NOTE | 2021-09-19 07:30 | NUR ---
A & OX4. V/S WNL. MECHANICAL SOFT/ADA DIET. ACUCHECKS AC & HS. HS BS: 157. NO SLIDING SCALE COVERAGE INDICATED. UP TO BEDSIDE COMMODE; LARGE LOOSE BM. INCONTINENT/CONTINENT AT TIMES. O2 @ 2LPM VIA N/C. PERMACATH TO R) UPPER CHEST. IV TO R) WRIST & L) UPPER ARM. PILLS WHOLE IN APPLE SAUCE. REPOSITION Q2HRS. WILL CONTINUE TO MONITOR.
[2021-09-19 15:11] LABS: Influenza A, PCR NEGATIVE (NEGATIVE); Influenza B, PCR NEGATIVE (NEGATIVE); Resp Syncytial Virus, PCR NEGATIVE (NEGATIVE); SARS-Cov-2 (COVID-19) PCR, MMC NEGATIVE (NEGATIVE)
--- NOTE | 2021-09-19 17:35 | NUR ---
PT DISCHARGED TO [facility]- WHEELCHAIR TRANSPORT. CALLED REPORT TO MALIK @2707 JUST AFTER PT LEFT. BELONGINGS SENT WITH PATIENT. CANALES LEFT IN PLACE. IV'S LEFT IN, RN OVERSIGHT FORGOT TO REMOVE IV'S. CALLED FACILITY TO NOTIFY MALIK.
== END 2021-09-19 16:43 | DRG 871 ==
LOC: ER 12:13 → ICUE 15:35 → PCU 15:35 → MEDS 15:35 → PCU 16:40 → ICUE 09-02 15:20 → PCU 09-03 10:39 → MEDS 09-07 16:46
PROVIDERS: Internal Medicine; Internal Medicine Nephrology; Nurse Practitioner Acute Care; ADMIT Internal Medicine
PROC: 3E03329 Introduction of Other Anti-infective into Peripheral Vein, Percutaneous Approach (ICD-10-PCS; principal; 2021-08-30)
PROC: 02HV33Z Insertion of Infusion Device into Superior Vena Cava, Percutaneous Approach (ICD-10-PCS; 2021-09-02)
PROC: 0JH63XZ Insertion of Tunneled Vascular Access Device into Chest Subcutaneous Tissue and Fascia, Percutaneous Approach (ICD-10-PCS; 2021-09-08)
PROC: 02HV33Z Insertion of Infusion Device into Superior Vena Cava, Percutaneous Approach (ICD-10-PCS; 2021-09-08)
PROC: B5181ZA Fluoroscopy of Superior Vena Cava using Low Osmolar Contrast, Guidance (ICD-10-PCS; 2021-09-08)
DX: A41.59 Other Gram-negative sepsis (principal); J15.6 Pneumonia due to other Gram-negative bacteria; J96.01 Acute respiratory failure with hypoxia; I21.4 Non-ST elevation (NSTEMI) myocardial infarction; I50.43 Acute on chronic combined systolic (congestive) and diastolic (congestive) heart failure; R57.1 Hypovolemic shock; I48.20 Chronic atrial fibrillation, unspecified; A04.72 Enterocolitis due to Clostridium difficile, not specified as recurrent; N17.9 Acute kidney failure, unspecified; N25.81 Secondary hyperparathyroidism of renal origin; I47.2 Ventricular tachycardia; E87.1 Hypo-osmolality and hyponatremia; I13.0 Hypertensive heart and chronic kidney disease with heart failure and stage 1 through stage 4 chronic kidney disease, or unspecified chronic kidney disease; E87.2 Acidosis; N18.4 Chronic kidney disease, stage 4 (severe); J44.0 Chronic obstructive pulmonary disease with (acute) lower respiratory infection; R04.2 Hemoptysis; R65.20 Severe sepsis without septic shock; Z20.822 Contact with and (suspected) exposure to COVID-19; I25.10 Atherosclerotic heart disease of native coronary artery without angina pectoris; E78.00 Pure hypercholesterolemia, unspecified; D63.1 Anemia in chronic kidney disease; E88.09 Other disorders of plasma-protein metabolism, not elsewhere classified; E11.22 Type 2 diabetes mellitus with diabetic chronic kidney disease; I25.5 Ischemic cardiomyopathy; R74.01 Elevation of levels of liver transaminase levels; E03.9 Hypothyroidism, unspecified; E61.1 Iron deficiency; G47.33 Obstructive sleep apnea (adult) (pediatric); R13.10 Dysphagia, unspecified; K12.30 Oral mucositis (ulcerative), unspecified; K12.1 Other forms of stomatitis; E11.21 Type 2 diabetes mellitus with diabetic nephropathy; I48.0 Paroxysmal atrial fibrillation; E66.01 Morbid (severe) obesity due to excess calories; Z68.32 Body mass index [BMI] 32.0-32.9, adult; Z87.01 Personal history of pneumonia (recurrent); Z95.1 Presence of aortocoronary bypass graft; Z99.81 Dependence on supplemental oxygen; Z95.0 Presence of cardiac pacemaker; Z98.890 Other specified postprocedural states; Z87.891 Personal history of nicotine dependence; Z88.8 Allergy status to other drugs, medicaments and biological substances; Z79.4 Long term (current) use of insulin; Z79.01 Long term (current) use of anticoagulants; Z79.899 Other long term (current) drug therapy
CPT/HCPCS: 0241U; 36415; 36558; 71045; 71250; 74150; 74230; 76770; 76937; 77001; 80053; 80069; 80074; 80202; 81001; 82248; 82550; 82565; 82728; 82803; 82947; 83540; 83550; 83605; 83735; 83880; 84100; 84132; 84145; 84436; 84443; 84484; 84550; 85014; 85018; 85025; 86317; 87040; 87070; 87077; 87086; 87186; 87205; 87324; 87507; 92526; 92610; 92611; 93005; 93010; 93306; 93308; 93321; 94640; 94660; 94664; 94760; 94762; 97110; 97162; 97165; 97530; 97535; 99152; 99153; 99285-25; A9270; C1750; C1769; C1894; J0456; J0696; J0713; J0881; J1644; J1815; J1940; J2185; J2250; J2543; J2916; J3010; J3370; J7030; J7040; J7050; J7060; J7120; P9046; U0004

== ENCOUNTER 2021-12-29 13:52 | Emergency (ER) | payer OTHER ==
[~2021-12-29] VITALS: Ht 182.9 cm; Wt 89.8 kg
[~2021-12-29 13:52] MED LIST changes: +SILD50TA PO; +SPIR25 PO; +TAMS.4ER PO; +Vitamin D1000 UNI1 PO
[2021-12-29 14:14] LABS: BASOPHILS ABSOLUTE AUTO 0.01 K/mm3 (0.00-0.23); BASOPHILS PERCENT AUTO 0 % (0-2); EOSINOPHILS ABSOLUTE AUTO 0.01 K/mm3 (0.00-0.68); EOSINOPHILS PERCENT AUTO 0 % (0-6); Hematocrit 37.4 % (37.0-53.0); Hemoglobin 11.8 g/dL (13.5-17.5); IMMATURE GRAN ABSOLUTE AUTO 0.03 K/mm3 (0.00-0.10); IMMATURE GRAN PERCENT AUTO 1 % (0-1); LYMPHOCYTES ABSOLUTE AUTO 0.57 K/mm3 (0.84-5.20); LYMPHOCYTES PERCENT AUTO 11 % (21-46); MONOCYTES ABSOLUTE AUTO 0.35 K/mm3 (0.16-1.47); MONOCYTES PERCENT AUTO 7 % (4-13); Mean Corpuscular HGB 28.2 pg (26.0-34.0); Mean Corpuscular HGB Conc 31.6 g/dL (31.5-36.5); Mean Corpuscular Volume 89 fL (80-100); Mean Platelet Volume 11.7 fL (9.1-12.4); NEUTROPHILS ABSOLUTE AUTO 4.28 K/mm3 (1.96-9.15); NEUTROPHILS PERCENT AUTO 81 % (41-73); Platelet Count 126 K/mm3 (150-400); RDW Coefficient Variation 19.5 % (11.7-14.2); RDW Standard Deviation 63.2 fL (35.1-46.3); Red Blood Cell Count 4.19 M/mm3 (4.30-5.90); White Blood Cell Count 5.25 K/mm3 (4.00-11.30)
[2021-12-29 15:27] LABS: Bun/Creatinine Ratio 18.4 (12.0-20.0); Calcium, Blood 8.3 mg/dL (8.5-10.1); Creatinine, Blood 3.64 mg/dL (0.60-1.20); Magnesium, Blood 2.1 mg/dL (1.6-2.4); Potassium, Blood 5.3 mmol/L (3.5-5.5)
[2021-12-29 15:55] LABS: Chloride (POC) 101 mmol/L (98-108); Glucose (ISTAT POC) 142 mg/dL (70-99); Hemoglobin (POC) 13.3 g/dL (13.5-17.5); Potassium (POC) 5.9 mmol/L (3.5-5.5); Sodium (POC) 130 mmol/L (135-148); Total CO2 (POC) 23 mmol/L (21-32)
== END 2021-12-29 17:04 | disposition home or self-care (01) ==
LOC: ER 13:52
PROVIDERS: Emergency Medicine
DX: I13.0 Hypertensive heart and chronic kidney disease with heart failure and stage 1 through stage 4 chronic kidney disease, or unspecified chronic kidney disease (principal); E11.22 Type 2 diabetes mellitus with diabetic chronic kidney disease; N18.30 Chronic kidney disease, stage 3 unspecified; I50.32 Chronic diastolic (congestive) heart failure; E83.51 Hypocalcemia; I25.10 Atherosclerotic heart disease of native coronary artery without angina pectoris; G47.33 Obstructive sleep apnea (adult) (pediatric); E11.40 Type 2 diabetes mellitus with diabetic neuropathy, unspecified; Z95.1 Presence of aortocoronary bypass graft; Z95.0 Presence of cardiac pacemaker; Z79.899 Other long term (current) drug therapy; Z79.01 Long term (current) use of anticoagulants; Z79.4 Long term (current) use of insulin; Z88.8 Allergy status to other drugs, medicaments and biological substances
CPT/HCPCS: 71045; 74018; 80047; 80048; 83735; 84484; 85014; 85025; 93005; 93010; 96365; 96376; 99284-25; J0610

== ENCOUNTER 2022-11-04 20:01 | Emergency (ER) | payer OTHER ==
[~2022-11-04] VITALS: Ht 182.9 cm; Wt 87.5 kg
[2022-11-04 20:32] LABS: BASOPHILS ABSOLUTE AUTO 0.02 K/mm3 (0.00-0.23); BASOPHILS PERCENT AUTO 0 % (0-2); EOSINOPHILS PERCENT AUTO 4 % (0-6); Hematocrit 31.2 % (37.0-53.0); Hemoglobin 9.9 g/dL (13.5-17.5); IMMATURE GRAN ABSOLUTE AUTO 0.03 K/mm3 (0.00-0.10); IMMATURE GRAN PERCENT AUTO 1 % (0-1); LYMPHOCYTES ABSOLUTE AUTO 0.94 K/mm3 (0.84-5.20); LYMPHOCYTES PERCENT AUTO 20 % (21-46); MONOCYTES ABSOLUTE AUTO 0.32 K/mm3 (0.16-1.47); MONOCYTES PERCENT AUTO 7 % (4-13); Mean Corpuscular HGB 29.7 pg (26.0-34.0); Mean Corpuscular HGB Conc 31.7 g/dL (31.5-36.5); Mean Corpuscular Volume 94 fL (80-100); Mean Platelet Volume 10.9 fL (9.1-12.4); NEUTROPHILS PERCENT AUTO 67 % (41-73); Platelet Count 103 K/mm3 (150-400); RDW Coefficient Variation 18.5 % (11.7-14.2); RDW Standard Deviation 64.4 fL (35.1-46.3); Red Blood Cell Count 3.33 M/mm3 (4.30-5.90); White Blood Cell Count 4.61 K/mm3 (4.00-11.30)
[2022-11-04 20:53] LABS: Bun/Creatinine Ratio 26.7 (12.0-20.0); Creatinine, Blood 2.02 mg/dL (0.60-1.20); Potassium, Blood 4.1 mmol/L (3.5-5.5)
[2022-11-05 00:30] VITALS: BP 115/84
== END 2022-11-05 00:50 | disposition short-term general hospital (02) ==
LOC: ER 20:01
PROVIDERS: Emergency Medicine
DX: S72.141A Displaced intertrochanteric fracture of right femur, initial encounter for closed fracture (principal); D64.9 Anemia, unspecified; D69.6 Thrombocytopenia, unspecified; I48.0 Paroxysmal atrial fibrillation; I25.10 Atherosclerotic heart disease of native coronary artery without angina pectoris; G47.33 Obstructive sleep apnea (adult) (pediatric); I13.0 Hypertensive heart and chronic kidney disease with heart failure and stage 1 through stage 4 chronic kidney disease, or unspecified chronic kidney disease; E11.22 Type 2 diabetes mellitus with diabetic chronic kidney disease; N18.30 Chronic kidney disease, stage 3 unspecified; I50.32 Chronic diastolic (congestive) heart failure; E11.21 Type 2 diabetes mellitus with diabetic nephropathy; E78.5 Hyperlipidemia, unspecified; Z88.8 Allergy status to other drugs, medicaments and biological substances; Z88.3 Allergy status to other anti-infective agents; Z79.01 Long term (current) use of anticoagulants; Z79.4 Long term (current) use of insulin; Z79.899 Other long term (current) drug therapy; W01.198A Fall on same level from slipping, tripping and stumbling with subsequent striking against other object, initial encounter
CPT/HCPCS: 73502; 80048; 85025; 96374; 96375; 99284-25; A9270; J1170; J2270; J2405

== ENCOUNTER 2022-12-28 10:45 | Day surgery (SDC) | payer OTHER ==
[~2022-12-28] VITALS: Ht 182.9 cm; Wt 85.2 kg
[2022-12-28] MEDS ORDERED: ALLO100 PO (11:16)
[2022-12-28] MEDS ORDERED: ENTRESTO 24 MG1 EACH PO (11:17)
[2022-12-28 12:57] VITALS: BP 110/78
== END 2022-12-28 13:13 | disposition home or self-care (01) ==
LOC: ORSCSDS 10:45
PROVIDERS: Internal Medicine Gastroenterology
PROC: 0DJ08ZZ Inspection of Upper Intestinal Tract, Via Natural or Artificial Opening Endoscopic (ICD-10-PCS; principal; 2022-12-28 12:00)
DX: R93.3 Abnormal findings on diagnostic imaging of other parts of digestive tract (principal); R19.5 Other fecal abnormalities; Z86.010 Personal history of colon polyps; I48.91 Unspecified atrial fibrillation; I25.10 Atherosclerotic heart disease of native coronary artery without angina pectoris; Z95.1 Presence of aortocoronary bypass graft; G47.33 Obstructive sleep apnea (adult) (pediatric); J44.9 Chronic obstructive pulmonary disease, unspecified; E03.9 Hypothyroidism, unspecified; I73.9 Peripheral vascular disease, unspecified; E13.22 Other specified diabetes mellitus with diabetic chronic kidney disease; I12.9 Hypertensive chronic kidney disease with stage 1 through stage 4 chronic kidney disease, or unspecified chronic kidney disease; N18.30 Chronic kidney disease, stage 3 unspecified; Z95.0 Presence of cardiac pacemaker; E78.5 Hyperlipidemia, unspecified; Z87.891 Personal history of nicotine dependence; Z79.899 Other long term (current) drug therapy
CPT/HCPCS: 82947; J0461; J2001; J2371; J2405; J2704; J7120; Q9968

== ENCOUNTER 2023-01-24 07:31 | Day surgery (SDC) | payer OTHER ==
[~2023-01-24] VITALS: Ht 182.9 cm; Wt 91.2 kg
[~2023-01-24 07:31] MED LIST changes: +ALLO100 PO; +ENTRESTO 24 MG1 EACH PO
[2023-01-24 09:30] VITALS: BP 137/65
--- NOTE | 2023-01-24 09:30 | NUR ---
01/24/23 0930 Macario Black IV REMOVED INTACT. SITE WNL.
== END 2023-01-24 09:33 | disposition home or self-care (01) ==
LOC: ORSCSDS 07:31
PROVIDERS: Student in an Organized Health Care Education/Training Program
PROC: 08RJ3JZ Replacement of Right Lens with Synthetic Substitute, Percutaneous Approach (ICD-10-PCS; principal; 2023-01-24 09:00)
DX: H25.13 Age-related nuclear cataract, bilateral (principal); H52.201 Unspecified astigmatism, right eye; I48.0 Paroxysmal atrial fibrillation; Z79.01 Long term (current) use of anticoagulants; I25.10 Atherosclerotic heart disease of native coronary artery without angina pectoris; Z95.0 Presence of cardiac pacemaker; I50.9 Heart failure, unspecified; I12.9 Hypertensive chronic kidney disease with stage 1 through stage 4 chronic kidney disease, or unspecified chronic kidney disease; E13.22 Other specified diabetes mellitus with diabetic chronic kidney disease; N18.9 Chronic kidney disease, unspecified; I25.2 Old myocardial infarction; Z79.899 Other long term (current) drug therapy; Z87.891 Personal history of nicotine dependence; J44.9 Chronic obstructive pulmonary disease, unspecified
CPT/HCPCS: 82947; J2250; J3010; J7040; V2632

== ENCOUNTER 2023-02-07 07:29 | Day surgery (SDC) | payer OTHER ==
[~2023-02-07] VITALS: Ht 182.9 cm; Wt 90.8 kg
--- NOTE | 2023-02-07 08:33 | NUR ---
02/07/23 0833 NANCY DAN TETRACAINE ADMINISTERED TO THE L EYE AT 0818, PLEDGET PLACED AT 0819 BY [email or web address].MES
[2023-02-07 09:25] VITALS: BP 144/71
--- NOTE | 2023-02-07 09:26 | NUR ---
02/07/23 0926 Macario Black IV REMOVED INTACT. SITE WNL.
== END 2023-02-07 09:35 | disposition home or self-care (01) ==
LOC: ORSCSDS 07:29
PROVIDERS: Student in an Organized Health Care Education/Training Program
PROC: 08RK3JZ Replacement of Left Lens with Synthetic Substitute, Percutaneous Approach (ICD-10-PCS; principal; 2023-02-07 09:00)
DX: E11.36 Type 2 diabetes mellitus with diabetic cataract (principal); H25.12 Age-related nuclear cataract, left eye; H52.202 Unspecified astigmatism, left eye; H21.81 Floppy iris syndrome; G47.33 Obstructive sleep apnea (adult) (pediatric); J44.9 Chronic obstructive pulmonary disease, unspecified; Z96.1 Presence of intraocular lens; Z87.891 Personal history of nicotine dependence; E13.22 Other specified diabetes mellitus with diabetic chronic kidney disease; I12.9 Hypertensive chronic kidney disease with stage 1 through stage 4 chronic kidney disease, or unspecified chronic kidney disease; N18.9 Chronic kidney disease, unspecified; Z79.899 Other long term (current) drug therapy; Z79.4 Long term (current) use of insulin
CPT/HCPCS: 82947; J2250; J3010; J7040; V2632

== ENCOUNTER 2023-04-20 11:57 | Day surgery (SDC) | payer OTHER ==
[~2023-04-20] VITALS: Ht 182.9 cm; Wt 93.9 kg
[~2023-04-20 11:57] MED LIST changes: -ALLO100 PO; -BUME1 PO; +BUME2 PO; -EUTHYROX50 MCG PO; +LEVSOD75 PO; +METO25ER; -METO50ER PO; +PRED AC-MOXI-BRO5 M1
[2023-04-20] MEDS ORDERED: METO25ER (12:15)
[2023-04-20 15:28] VITALS: BP 128/65
== END 2023-04-20 15:25 | disposition home or self-care (01) ==
LOC: ORSCSDS 11:57
PROVIDERS: Internal Medicine Gastroenterology
PROC: 0DBN8ZX Excision of Sigmoid Colon, Via Natural or Artificial Opening Endoscopic, Diagnostic (ICD-10-PCS; principal; 2023-04-20 13:00)
PROC: 0DBL8ZX Excision of Transverse Colon, Via Natural or Artificial Opening Endoscopic, Diagnostic (ICD-10-PCS; principal; 2023-04-20 13:00)
PROC: 0DBK8ZX Excision of Ascending Colon, Via Natural or Artificial Opening Endoscopic, Diagnostic (ICD-10-PCS; principal; 2023-04-20 13:00)
DX: R19.5 Other fecal abnormalities (principal); Z86.010 Personal history of colon polyps; K63.5 Polyp of colon; D12.3 Benign neoplasm of transverse colon; D12.2 Benign neoplasm of ascending colon; K64.8 Other hemorrhoids; Z95.1 Presence of aortocoronary bypass graft; I48.91 Unspecified atrial fibrillation; I73.9 Peripheral vascular disease, unspecified; I50.9 Heart failure, unspecified; E78.5 Hyperlipidemia, unspecified; Z95.0 Presence of cardiac pacemaker; I25.2 Old myocardial infarction; E11.22 Type 2 diabetes mellitus with diabetic chronic kidney disease; I25.10 Atherosclerotic heart disease of native coronary artery without angina pectoris; I12.9 Hypertensive chronic kidney disease with stage 1 through stage 4 chronic kidney disease, or unspecified chronic kidney disease; N18.30 Chronic kidney disease, stage 3 unspecified; J44.9 Chronic obstructive pulmonary disease, unspecified; Z87.891 Personal history of nicotine dependence; Z79.4 Long term (current) use of insulin; Z79.01 Long term (current) use of anticoagulants; Z79.899 Other long term (current) drug therapy
CPT/HCPCS: 82947; 88305; J2704; J7120

== ENCOUNTER 2025-01-01 14:41 | Observation (INO) | payer OTHER ==
[~2025-01-01] VITALS: Ht 182.9 cm; Wt 108.0 kg
[~2025-01-01 14:41] MED LIST changes: +BASAGLAR K100 UNIT/3 SC; +METO25ER PO
[2025-01-01 15:19] LABS: BASOPHILS ABSOLUTE AUTO 0.02 K/mm3 (0.00-0.23); BASOPHILS PERCENT AUTO 0 % (0-2); EOSINOPHILS ABSOLUTE AUTO 0.15 K/mm3 (0.00-0.68); EOSINOPHILS PERCENT AUTO 3 % (0-6); Hematocrit 39.0 % (37.0-53.0); Hemoglobin 12.8 g/dL (13.5-17.5); IMMATURE GRAN ABSOLUTE AUTO 0.01 K/mm3 (0.00-0.10); IMMATURE GRAN PERCENT AUTO 0 % (0-1); LYMPHOCYTES ABSOLUTE AUTO 0.71 K/mm3 (0.84-5.20); LYMPHOCYTES PERCENT AUTO 14 % (21-46); MONOCYTES ABSOLUTE AUTO 0.34 K/mm3 (0.16-1.47); MONOCYTES PERCENT AUTO 7 % (4-13); Mean Corpuscular HGB Conc 32.8 g/dL (31.5-36.5); Mean Corpuscular Volume 90 fL (80-100); NEUTROPHILS ABSOLUTE AUTO 3.78 K/mm3 (1.96-9.15); NEUTROPHILS PERCENT AUTO 75 % (41-73); NRBC ABSOLUTE 0.00 K/mm3 (0.00-0.02); NRBC Auto 0.0 /100 WBC (0.0-0.2); Platelet Count 102 K/mm3 (150-400); RDW Coefficient Variation 18.4 % (11.7-14.2); RDW Standard Deviation 60.4 fL (35.1-46.3)
[2025-01-01 15:32] LABS: Prothrombin Time Results 11.6 Sec (9.7-11.5)
[2025-01-01 15:33] LABS: Alanine Aminotransfer (ALT/SGP 20.0 U/L (12-78); Albumin, Blood 3.4 g/dL (3.4-5.0); Albumin/Globulin Ratio 1.1 (0.8-1.8); Anion Gap 6.0 mmol/L (3-11); Aspartate Aminotrans (AST/SGOT 20.0 U/L (12-37); Bilirubin, Total 0.8 mg/dL (0.1-1.0); Blood Urea Nitrogen 48.0 mg/dL (8-24); CO2, Blood 32.0 mmol/L (21-32); Calcium, Blood 8.6 mg/dL (8.5-10.1); Chloride, Blood 101.0 mmol/L (98-108); Creatinine, Blood 2.58 mg/dL (0.60-1.20); Globulin, Blood 3.2 g/dL (2.2-4.0); Glucose, Blood 189.0 mg/dL (70-99); Potassium, Blood 4.3 mmol/L (3.5-5.5); Sodium, Blood 135.0 mmol/L (136-145); Total Protein, Blood 6.6 g/dL (6.4-8.2)
[2025-01-01] MEDS ORDERED: FLU VACC TS2025-26(6MOS UP)/PF 45 MCG/0.5 ML SYRINGE IM SCH (17:15)
[2025-01-01 18:07] LABS: Source, Urine Clean Catch
[2025-01-01 18:24] LABS: Bilirubin, Urine Neg (Neg); Glucose Qualitative, Urine 4+ (Neg); Ketones, Urine Neg (Neg); Leukocyte Esterase, Urine Neg (Neg); Protein, Urine Neg (Neg); Specific Gravity, Urine 1.005 (1.003-1.022); Urobilinogen, Urine NORM (Normal)
[2025-01-01 19:11] LABS: Color, Urine Pale Yellow (P-Yellow)
[2025-01-01 21:11] VITALS: BP 146/74
[2025-01-02 01:03] VITALS: BP 107/64
--- NOTE | 2025-01-02 04:56 | NUR ---
PT ADMITTED DURING SHIFT. PATIENT ALERT AND ORIENTED X4, ABLE TO MAKE NEEDS KNOWN. PATIENT IS ON ROOM AIR, NO COMPLAINTS OF CHEST PAIN. PATIENT UP TO BATHROOM WITH SBA DUE TO SLIGHT LEFT FOOT DRAG. PATIENT STATES HE IS FEELING BETTER. PATIENT IS ON CARB CON DIET. PATIENT WAS EDUCATED ABOUT THE PLAN OF CARE AND ORIENTED TO THE ROOM AND CALL LIGHT. PATIENT ABLE TO TURN SELF IN BED. BED IN LOW POSITION WITH WHEELS LOCKED. CALL LIGHT WITHIN REACH
[2025-01-02 05:08] LABS: BASOPHILS ABSOLUTE AUTO 0.04 K/mm3 (0.00-0.23); BASOPHILS PERCENT AUTO 1 % (0-2); EOSINOPHILS ABSOLUTE AUTO 0.21 K/mm3 (0.00-0.68); EOSINOPHILS PERCENT AUTO 4 % (0-6); Hematocrit 38.9 % (37.0-53.0); Hemoglobin 12.4 g/dL (13.5-17.5); IMMATURE GRAN ABSOLUTE AUTO 0.01 K/mm3 (0.00-0.10); IMMATURE GRAN PERCENT AUTO 0 % (0-1); LYMPHOCYTES ABSOLUTE AUTO 0.86 K/mm3 (0.84-5.20); LYMPHOCYTES PERCENT AUTO 16 % (21-46); MONOCYTES ABSOLUTE AUTO 0.46 K/mm3 (0.16-1.47); MONOCYTES PERCENT AUTO 8 % (4-13); Mean Corpuscular HGB Conc 31.9 g/dL (31.5-36.5); Mean Corpuscular Volume 91 fL (80-100); NEUTROPHILS ABSOLUTE AUTO 3.97 K/mm3 (1.96-9.15); NEUTROPHILS PERCENT AUTO 72 % (41-73); NRBC ABSOLUTE 0.00 K/mm3 (0.00-0.02); NRBC Auto 0.0 /100 WBC (0.0-0.2); Platelet Count 105 K/mm3 (150-400); RDW Coefficient Variation 18.3 % (11.7-14.2); RDW Standard Deviation 60.9 fL (35.1-46.3)
[2025-01-02 05:20] VITALS: BP 137/75
[2025-01-02 05:49] LABS: Alanine Aminotransfer (ALT/SGP 18.0 U/L (12-78); Albumin, Blood 3.1 g/dL (3.4-5.0); Albumin/Globulin Ratio 1.0 (0.8-1.8); Anion Gap 9.0 mmol/L (3-11); Aspartate Aminotrans (AST/SGOT 14.0 U/L (12-37); Bilirubin, Total 0.7 mg/dL (0.1-1.0); Blood Urea Nitrogen 47.0 mg/dL (8-24); CO2, Blood 29.0 mmol/L (21-32); Calcium, Blood 8.5 mg/dL (8.5-10.1); Chloride, Blood 104.0 mmol/L (98-108); Creatinine, Blood 2.31 mg/dL (0.60-1.20); Globulin, Blood 3.0 g/dL (2.2-4.0); Glucose, Blood 139.0 mg/dL (70-99); Potassium, Blood 3.8 mmol/L (3.5-5.5); Sodium, Blood 138.0 mmol/L (136-145); Thyroid Stimulating Hormone 7.18 uIU/mL (0.360-4.800); Total Protein, Blood 6.1 g/dL (6.4-8.2)
[2025-01-02] MEDS ORDERED: Insulin Regular 100 UNIT/ML 10ML Vial SC SCH (07:30)
[2025-01-02 07:51] VITALS: BP 106/59
[2025-01-02 12:33] VITALS: BP 126/62
[2025-01-02 16:22] VITALS: BP 120/61
--- NOTE | 2025-01-02 17:13 | NUR ---
PATIENT WAITING FOR RESULTS OF ECHO FOR DISCHARGE. MD IN ROOM A COUPLE TIMES TODAY WITH UPDATE PATIENT. PATIENT INDEPENDENT WITHIN ROOM. WAITING FOR ORDERS
== END 2025-01-02 18:45 | disposition home or self-care (01) ==
LOC: ER 14:41 → ERHOLD 14:42 → MEDS 14:42
PROVIDERS: Emergency Medicine; ADMIT Internal Medicine
DX: I63.231 Cerebral infarction due to unspecified occlusion or stenosis of right carotid arteries (principal); I63.211 Cerebral infarction due to unspecified occlusion or stenosis of right vertebral artery; G81.94 Hemiplegia, unspecified affecting left nondominant side; I25.10 Atherosclerotic heart disease of native coronary artery without angina pectoris; I48.0 Paroxysmal atrial fibrillation; I11.0 Hypertensive heart disease with heart failure; I50.22 Chronic systolic (congestive) heart failure; G47.33 Obstructive sleep apnea (adult) (pediatric); E03.9 Hypothyroidism, unspecified; E11.51 Type 2 diabetes mellitus with diabetic peripheral angiopathy without gangrene; Z95.0 Presence of cardiac pacemaker; Z95.1 Presence of aortocoronary bypass graft; Z87.891 Personal history of nicotine dependence; Z88.8 Allergy status to other drugs, medicaments and biological substances; Z79.01 Long term (current) use of anticoagulants; Z79.4 Long term (current) use of insulin; Z79.890 Hormone replacement therapy; Z79.899 Other long term (current) drug therapy; Z59.6 Low income; Z59.89 Other problems related to housing and economic circumstances
CPT/HCPCS: 36415; 70450; 70496; 70498; 80053; 81003; 82947; 83036; 84443; 84484; 85025; 85610; 85730; 93005; 93010; 93306; 93880; 97116; 97162; 97165; 97530; 99285-25; A9270; G0378; J1815; Q9967